=== PATIENT | male | born 1975 | race Caucasian/White ===

== ENCOUNTER 2021-07-03 22:27 | Emergency (ER) | payer OTHER, SELFPAY ==
[2021-07-03 22:30] VITALS: BP 161/92; PULSE 108; RESP 18; TEMP 36.6; O2SAT 100
--- NOTE | 2021-07-03 22:46 | ED.ALLEREA ---
HPI - Allergic Reaction General Chief complaint: Allergic Reaction Stated complaint: Allergic reaction to groin/lower abd Time Seen by Provider: 07/03/21 22:39 Source: patient Mode of arrival: ambulatory Limitations: no limitations History of Present Illness HPI narrative: Patient is a 46-year-old male complaining of a itchy rash all over his groin area that started today. Patient states that he started taking penicillin and hydrocodone yesterday after he had 7 teeth pulled . Patient denies any lip, tongue or throat swelling. Patient denies any extremity swelling. Patient denies any shortness of breath. Related Data Allergies Allergy/AdvReac Type Severity Reaction Status Date / Time Penicillins Allergy Unknown Rash Verified 11/27/17 22:58 Review of Systems Review of Systems: All systems reviewed & are unremarkable except as noted in HPI and below Constitutional: Constitutional: Denies body ache(s), Denies chills, Denies excessive sweating, Denies fatigue, Denies fever(s), Denies headache(s), Denies lethargy, Denies malaise, Denies weakness and Denies weight loss Eyes: Eyes: Denies blurry vision, Denies change in vision and Denies loss of vision ENT: Denies dizziness, Denies ear discharge, Denies headache(s), Denies lip swelling, Denies epistaxis, Denies nasal congestion, Denies neck pain, Denies throat swelling and Denies tongue swelling Cardiovascular: Cardiovascular: Denies chest pain, Denies chest pain at rest, Denies chest pain with activity, Denies diaphoresis, Denies rapid heart rate, Denies edema, Denies irregular heart rhythm, Denies lightheadedness, Denies palpitations, Denies dyspnea and Denies dyspnea on exertion Respiratory: Respiratory: Denies chest congestion, Denies cough, Denies hemoptysis, Denies dyspnea and Denies dyspnea on exertion Gastrointestinal: Gastrointestinal: Denies abdominal pain, Denies melena, Denies hematochezia, Denies diarrhea, Denies nausea, Denies vomiting and Denies hematemesis Musculoskeletal: Musculoskeletal: Denies abnormal gait, Denies deformity, Denies joint swelling, Denies limited range of motion, Denies neck pain and Denies numbness Neurologic: Denies Abnormal speech present, Denies abnormal gait, Denies confusion, Denies dizziness, Denies headache(s), Denies focal weakness, Denies loss of vision, Denies numbness, Denies Other visual disturbances, Denies Sensory deficit (Neuro) and Denies weakness Psychiatric: Psychiatric: Denies confusion, Denies depression, Denies auditory hallucinations, Denies homicidal ideation and Denies suicidal ideation Endocrine: Endocrine: Denies cold intolerance, Denies excessive sweating, Denies fatigue, Denies heat intolerance and Denies palpitations Hematologic/Lymphatic: Hematologic/Lymphatic: Denies easy bleeding and Denies easy bruising Allergic/Immunologic: Allergic/Immunologic: Denies lip swelling, Denies throat swelling and Denies tongue swelling PMF Social History Social History Smoking status: Smoker, status unknown Alcohol intake: never Comments Past medical history: None Family history: Hypertension Social history: Non-smoker no EtOH or drug use Exam Const: General: cooperative, healthy appearing, comfortable, no acute distress, well developed, alert and awake; No confusion Orientation/consciousness: oriented to person, oriented to place, oriented to time, patient oriented x3 and No confusion Limitations: no limitations HENMT: Head: normal to inspection, normocephalic and atraumatic Ears: hearing grossly normal bilaterally, TM normal on the right and TM normal on the left General nose exam: Normal external nose present, Normal nares present and No nasal discharge present Face and sinus: normal facial exam Mouth: Yes Normal oral and palatal mucosa present, Yes lip normal, Yes tongue normal and Yes oropharynx normal Throat: posterior oropharynx normal, tonsils normal and uvula midline Eyes: General: appearance normal, both eyes and
[2021-07-03 23:09] VITALS: BP 170/93; PULSE 67; RESP 18; O2SAT 98
[2021-07-03] MEDS: FAMOTIDINE 20 MG TABLET 40 MG PO (23:11)
[2021-07-03] MEDS: diphenhydrAMINE HCl CAP 25 MG CAPSULE PO (23:11)
[2021-07-03] MEDS: methylPREDNISolone SOD SUCC 125 MG VIAL IM (23:12)
== END 2021-07-03 23:19 | disposition home or self-care (01) ==
LOC: ANHED 23:01
PROVIDERS: Emergency Provider Emergency Medicine
DX: T78.40XA Allergy, unspecified, initial encounter (principal)
CPT/HCPCS: 96372; 99283; A9270; J2930

== ENCOUNTER 2021-07-28 13:20 | Emergency (ER) | payer OTHER, SELFPAY ==
--- NOTE | ~2021-07-28 | XR_ITS ---
EXAMINATION: XR chest 1V portable DATE: 07/28/2021 15:04 INDICATION: Cough. Chest tightness. TECHNIQUE: A single frontal view of the chest was obtained. COMPARISON: Chest 2 views 11/27/2017 FINDINGS: The chest demonstrates clear lungs without pneumonia, pleural effusion, or pneumothorax. Th e heart size is normal. IMPRESSION: 1. No acute cardiopulmonary disease. Reviewed, dictated and finalized at location A. [facility]MER
[2021-07-28 13:57] VITALS: BP 159/105; PULSE 88; RESP 18; TEMP 36.6; O2SAT 100
[2021-07-28 14:18] VITALS: RESP 18
[2021-07-28 14:19] VITALS: BP 148/98; PULSE 71; RESP 18; O2SAT 97
--- NOTE | 2021-07-28 15:39 | ED.GENADULT ---
HPI - General Adult General Chief complaint: Upper Respiratory Infection Stated complaint: Sinus Infection Time Seen by Provider: 07/28/21 14:17 History of Present Illness HPI narrative: Patient is a 46-year-old male who presents ER with cold symptoms. Reports over the last days developed sinus congestion with postnasal drip and cough. Associate with mild throbbing headache. Denies fevers or chills or sweats. No known sick contacts. Unvaccinated against Covid. No loss of taste or smell. Reports frequent cough. Has tried no medications at home. Patient does continue to smoke. Related Data Allergies Allergy/AdvReac Type Severity Reaction Status Date / Time Penicillins Allergy Unknown Rash Verified 07/03/21 23:10 hydrocodone Allergy Rash Verified 07/03/21 23:10 Review of Systems Review of Systems: All systems reviewed & are unremarkable except as noted in HPI and below Constitutional: Constitutional: Denies chills, Reports fatigue and Denies fever(s) ENT: Reports nasal congestion and Reports sore throat Comments: No ear pressure Cardiovascular: Cardiovascular: Denies chest pain, Denies rapid heart rate and Denies radiating jaw, neck or arm pain Respiratory: Respiratory: Reports cough, Denies dyspnea and Denies wheezing Gastrointestinal: Gastrointestinal: Denies nausea and Denies vomiting PMFSH Past Medical History Medical History (Updated 07/28/21 @ 15:45 by Michele Rivero MD) Anxiety Depression Epilepsy Hypertension Social History Social History (Updated 07/28/21 @ 15:41 by Michele Rivero MD) Smoking status: Current every day smoker Alcohol intake: never Substance use type: marijuana Exam Narrative: GENERAL: Well-appearing, well-nourished, and in no acute distress. HEAD: Normocephalic, atraumatic. EYES: PERRL and EOMI. ENT: Mucous membranes moist. CHEST: Occasional cough with rales at will clear. No respiratory distress. HEART: Regular rate and rhythm. Normal peripheral pulses. EXTREMITIES: Normal range of motion. No edema. NEURO: Alert and oriented x3. PSYCH: Normal mood and affect. Course Course Emergency Course: Covid pending. Discharge home with albuterol as well as Flonase and Mucinex D. Follow-up with PCP Vital Signs Vital signs: Vital Signs Temperature 97.9 F 07/28/21 13:57 Pulse Rate 88 07/28/21 13:57 Respiratory Rate 18 07/28/21 13:57 Blood Pressure 159/105 H 07/28/21 13:57 Pulse Oximetry 100 07/28/21 13:57 Temperature 97.9 F 07/28/21 13:57 Pulse Rate 71 07/28/21 14:19 Respiratory Rate 18 07/28/21 14:19 Blood Pressure 148/98 H 07/28/21 14:19 Pulse Oximetry 97 07/28/21 14:19 Medical Decision Making Vital Signs Vital Signs: Vital Signs Temperature 97.9 F 07/28/21 13:57 Pulse Rate 88 07/28/21 13:57 Respiratory Rate 18 07/28/21 13:57 Blood Pressure 159/105 H 07/28/21 13:57 Pulse Oximetry 100 07/28/21 13:57 Temperature 97.9 F 07/28/21 13:57 Pulse Rate 71 07/28/21 14:19 Respiratory Rate 18 07/28/21 14:19 Blood Pressure 148/98 H 07/28/21 14:19 Pulse Oximetry 97 07/28/21 14:19 Lab Data Labs: Lab Results 07/28/21 Range/Units 15:24 SARS-CoV-2 RNA (RT-PCR) Pending Imaging Data Radiologist's impression: ITS Impressions Chest X-Ray 07/28/21 15:06 IMPRESSION: 1. No acute cardiopulmonary disease. Discharge Plan Discharge Clinical Impression: Upper respiratory infection, Person under investigation for COVID-19 Patient Disposition: Home, Self-Care Condition: Stable Instructions: Upper Respiratory Infection (ED), COVID-19 (Coronavirus Disease 2019) (ED) Additional Instructions: You were tested for Covid. You should have the results in the next 24 hours. Return the ER if you have worsening shortness of breath, you lose consciousness, you have chest pain with exertion, you have additional concerns. Prescriptions: New albuterol sulfate 90 mcg/act
[2021-07-28 16:10] VITALS: BP 132/78; PULSE 78; RESP 18; O2SAT 100
[2021-07-29 17:57] LABS: SARS-CoV-2 RNA PCR Negative
== END 2021-07-28 16:10 | disposition home or self-care (01) ==
PROVIDERS: Emergency Provider Emergency Medicine
DX: J22 Unspecified acute lower respiratory infection (principal); Z20.822 Contact with and (suspected) exposure to COVID-19; F41.9 Anxiety disorder, unspecified; F32.9 Major depressive disorder, single episode, unspecified; G40.909 Epilepsy, unspecified, not intractable, without status epilepticus; I10 Essential (primary) hypertension; F17.210 Nicotine dependence, cigarettes, uncomplicated
CPT/HCPCS: 71045; 99283; C9803; U0003; U0005

== ENCOUNTER 2022-02-16 14:01 | Emergency (ER) | payer OTHER, SELFPAY ==
[2022-02-16 14:03] VITALS: BP 175/102; PULSE 78; RESP 18; TEMP 36.5; O2SAT 99
--- NOTE | 2022-02-16 14:40 | ED.LOWEXIN ---
HPI - Extremity Injury (Lower) General Chief Complaint: Extremity Injury, Lower Stated Complaint: knee and hip pain Time Seen by Provider: 02/16/22 14:14 History of Present Illness HPI Narrative: This is a 46-year-old male with no past medical history, presenting emergency department complaining of left knee hip and back pain. He describes the pain as sharp, 5 out of 10, originating in the left lateral aspect of the knee radiating to the left hip and across the left back. 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 Pain is intermittent and is not associated with saddle anesthesia or loss of bowel or bladder control. He has not had a pain like this before. Related Data Allergies Allergy/AdvReac Type Severity Reaction Status Date / Time Penicillins Allergy Unknown Rash Verified 02/16/22 14:49 hydrocodone Allergy Rash Verified 02/16/22 14:49 Review of Systems Review of Systems: CONSTITUTIONAL: Denies fever, chills, or sweats. EYES: Denies visual changes, redness, or discharge. ENT: Denies rhinorrhea, congestion, sore throat, or otalgia. CARDIOVASCULAR: Denies chest pain, palpitations, or edema. RESPIRATORY: Denies cough or dyspnea. GASTROINTESTINAL: Denies abdominal pain, nausea, vomiting, or diarrhea. GENITOURINARY: Denies dysuria or hematuria. SKIN: Denies rash or itching. MUSCULOSKELETAL: + back pain, left knee and hip pain, Denies myalgia. NEUROLOGIC: Denies headache, numbness, dizziness, or weakness. PSYCHIATRIC: Denies anxiety or depression. PMFSH Past Medical History Medical History (Updated 02/17/22 @ 00:00 by Christal Daemasael) Anxiety Depression Epilepsy Hypertension Social History Social History (Updated 07/28/21 @ 15:41 by Michele Rivero MD) Smoking status: Current every day smoker Alcohol intake: never Substance use type: marijuana Exam Narrative: GENERAL: Well-appearing, well-nourished, and in no acute distress. HEAD: Normocephalic, atraumatic. EYES: PERRLA and EOMI. CHEST: Clear to auscultation. No respiratory distress. No wheezes rales or rhonchi HEART: Regular rate and rhythm. No murmur heard. Normal peripheral pulses. ABDOMEN: Soft, nontender, nondistended, normal active bowel sounds. BACK: No CVA tenderness to palpation over the spine, no paraspinal tenderness, no noted erythema or induration EXTREMITIES: Normal-appearing knees bilaterally, no noted joint effusion, erythema, or induration. Normal range of motion. No edema. SKIN: Warm, dry, no rash. NEURO: No focal deficits. Alert and oriented x3. PSYCH: Normal mood and affect. Course Course Emergency Course: Exam consistent with musculoskeletal strain and not concerning for neural deficit. Will discharge with pain management, home physical therapy and primary care follow up. Discussed return and emergency precautions including signs/symptoms of cauda equina. The patient voiced understanding and is comfortable with the plan. All questions answered to his satisfaction. Vital Signs Vital signs: Vital Signs Temperature 97.7 F 02/16/22 14:03 Pulse Rate 78 02/16/22 14:03 Respiratory Rate 18 02/16/22 14:03 Blood Pressure 175/102 H 02/16/22 14:03 Pulse Oximetry 99 02/16/22 14:03 Oxygen Delivery Room Air 02/16/22 14:03 Temperature 97.7 F 02/16/22 14:03 Pulse Rate 74 02/16/22 16:19 Respiratory Rate 18 02/16/22 16:19 Blood Pressure 148/95 H 02/16/22 16:19 Pulse Oximetry 99 02/16/22 16:19 Oxygen Delivery Room Air 02/16/22 14:03 MDM - Extremity Injury (Lower) MDM Narrative Medical decision making narrative: Plan: pain control Differential Diagnosis Differential diagnosis: Likely other (IT band syndrome, musculoskeletal strain, other) Discharge Plan Discharge Clinical Impression: Acute pain of left knee, Low back pain Patient Disposition: Home, Self-Care Condition: Stable Instructions: Antibiotic Form, Lower Back Exercises (ED) Additional
--- NOTE | 2022-02-16 15:33 | PC.NURSE ---
Pharmacy was contacted by this RN for lidocaine patch. Per pharmacy - location of patch placement has to be included in order.
[2022-02-16] MEDS: LIDOCAINE 5% PATCH 1 PATCH TRANSDERM (15:48)
[2022-02-16] MEDS: KETOROLAC 30 MG/ML VIAL (*BKC) IM (15:49)
[2022-02-16 16:19] VITALS: BP 148/95; PULSE 74; RESP 18; O2SAT 99
== END 2022-02-16 16:21 | disposition home or self-care (01) ==
PROVIDERS: Emergency Provider Preventive Medicine Aerospace Medicine
DX: M25.562 Pain in left knee (principal); M54.50 Low back pain, unspecified; F17.200 Nicotine dependence, unspecified, uncomplicated
CPT/HCPCS: 96372; 99283; A9270; J1885

== ENCOUNTER 2023-12-22 16:40 | Emergency (ER) | payer OTHER, SELFPAY ==
[2023-12-22 16:49] VITALS: BP 117/77; PULSE 74; RESP 20; TEMP 36.4; O2SAT 100
--- NOTE | 2023-12-22 17:27 | ED.SKABFB ---
HPI - Skin/Abscess/Foreign Bdy General Chief complaint: Skin/Abscess/Foreign Body Stated complaint: Rash Time Seen by Provider: 12/22/23 17:22 Source: patient and RN notes reviewed Mode of arrival: ambulatory Limitations: no limitations History of Present Illness HPI narrative: Patient presents today with a one-week history of pruritic rash to the bilateral legs and bilateral arms. He has been working in his backyard in high [employer] recently. He has tried some Children's Benadryl that he had at home without much relief. Related Data Home Medications Medication Instructions Recorded Confirmed amlodipine 10 mg tablet mg 12/22/23 aripiprazole 15 mg tablet mg 12/22/23 benztropine 1 mg tablet mg 12/22/23 escitalopram oxalate 20 mg tablet mg 12/22/23 gabapentin 300 mg capsule mg 12/22/23 ibuprofen 800 mg tablet mg 12/22/23 losartan 100 mg tablet mg 12/22/23 metformin 500 mg tablet,extended mg PO 12/22/23 release 24 hr montelukast 10 mg tablet mg 12/22/23 propranolol 20 mg tablet mg 12/22/23 rosuvastatin 10 mg tablet mg 12/22/23 Allergies Allergy/AdvReac Type Severity Reaction Status Date / Time Penicillins Allergy Unknown Rash Verified 12/22/23 16:53 hydrocodone Allergy Rash Verified 12/22/23 16:53 Review of Systems Review of Systems: CONSTITUTIONAL: Denies body aches, fever, chills, or sweats. EYES: Denies visual changes, redness, or discharge. ENT: Denies rhinorrhea, congestion, sore throat, or otalgia. CARDIOVASCULAR: Denies chest pain, palpitations, or edema. RESPIRATORY: Denies cough or dyspnea. GASTROINTESTINAL: Denies abdominal pain, nausea, vomiting, or diarrhea. GENITOURINARY: Denies dysuria or hematuria. SKIN: + pruritic rash MUSCULOSKELETAL: Denies back pain, joint pain, or myalgia. NEUROLOGIC: Denies headache, numbness, tingling, or weakness. PSYCH: Denies depression or anxiety. [facility] Past Medical History Medical History Anxiety Depression Epilepsy Hypertension Social History Social History Smoking status: Current every day smoker Alcohol intake: never Substance use type: marijuana Comments At time of signature, I have reviewed and agree with nursing past medical, surgical, social and family history unless otherwise noted. Please see nursing chart for further information. There is no relevant family history pertinent to the presenting complaint Exam Narrative: GENERAL: Well-appearing, well-nourished, and in no acute distress. HEAD: Normocephalic, atraumatic. EYES: EOMI. No redness or drainage. Conjunctivae normal. ENT: Mucous membranes pink and moist. NECK: Normal AROM. CHEST: No respiratory distress. EXTREMITIES: Normal range of motion. No edema. SKIN: Warm, dry. Capillary refill normal. Normal skin turgor. Multiple scattered scabbed lesions to the bilateral lower legs, bilateral antecubital fossa. No signs of infection. No active drainage. No induration or edema. NEURO: No focal deficits. Alert and oriented x3. Gait steady. PSYCH: Normal affect. No signs of depression or anxiety. Course Course Level of Care: Express Care Visit Vital Signs Vital signs: Vital Signs Temperature 97.5 F L 12/22/23 16:49 Pulse Rate 74 12/22/23 16:49 Respiratory Rate 20 12/22/23 16:49 Blood Pressure 117/77 12/22/23 16:49 Pulse Oximetry 100 12/22/23 16:49 Oxygen Delivery Room Air 12/22/23 16:49 Temperature 97.5 F L 12/22/23 16:49 Pulse Rate 74 12/22/23 16:49 Respiratory Rate 20 12/22/23 16:49 Blood Pressure 117/77 12/22/23 16:49 Pulse Oximetry 100 12/22/23 16:49 Oxygen Delivery Room Air 12/22/23 16:49 Reviewed MDM - Skin/Abscess/Foreign Bdy MDM Narrative Medical decision making narrative: Patient's symptoms are likely due to contact dermatitis. Prescription for prednisone sent to pharmacy. Anti
== END 2023-12-22 17:35 | disposition home or self-care (01) ==
PROVIDERS: Emergency Provider Nurse Practitioner; PCP Internal Medicine
DX: L25.9 Unspecified contact dermatitis, unspecified cause (principal); F17.200 Nicotine dependence, unspecified, uncomplicated; F12.90 Cannabis use, unspecified, uncomplicated; I10 Essential (primary) hypertension
CPT/HCPCS: 99213; G0463

== ENCOUNTER 2024-01-06 17:13 | Emergency (ER) | payer OTHER, SELFPAY ==
[2024-01-06] VITALS (19 sets, daily range): BP systolic 117–137; BP diastolic 68–106; PULSE 68–83; RESP 16–19; TEMP 36.8; O2SAT 97–100
--- NOTE | ~2024-01-06 | CT_ITS ---
EXAMINATION: CT abdomen pelvis w con DATE: 01/06/2024 22:23 INDICATION: Abdominal pain. Constipation. TECHNIQUE: Computed tomography (CT) of the abdomen and pelvis was performed with 100 mL Omnipaque 350 intravenous contrast. Automated exposure control and iterative reconstruction technique were employe d. The dose-length product was 987.03 mGy-cm. COMPARISON: None. FINDINGS: The visualized portions of the lung bases demonstrate mild atelectasis. No pleural effusion . The heart size is normal. No pericardial effusion. There is diffuse hepatic steatosis. The gallblad devante, spleen, pancreas, and adrenal glands, are normal. There are cysts in the kidneys measuring up to 2.1 cm on the left. There are bilateral inguinal hernias containing fat. There are no dilated loops of bowel. The appendix is normal. There is calcified atherosclerosis of the aorta and many of the oth er arteries. There are no pathologically enlarged lymph nodes. There is no free intraperitoneal fluid . There is mild chronic anterior wedging of multiple vertebral bodies. There is mild thoracic and lum bar spondylosis. IMPRESSION: 1. Diffuse hepatic steatosis. 2. Bilateral inguinal hernias containing fat. Reviewed, dictated and finalized at location E.
--- NOTE | 2024-01-06 18:36 | ED.GENADULT ---
HPI - General Adult General Chief complaint: Abdominal Pain Stated complaint: constipation Time Seen by Provider: 01/06/24 18:36 Focused HPI: Jared Mreaz is a 48 y/o male who presents with reports of having constipation to diarrhea for the past 3-5 days. He also had some nausea vomiting about 5 days ago. Denies pain, he states he had a BM today and had diarrhea. He states he has been feeling hot off and on the past week. GENERAL: well-nourished, and in no acute distress. HEAD: Normocephalic, atraumatic. CHEST: Clear to auscultation. ?No respiratory distress. HEART: Regular rate and rhythm.? NEURO: ?Alert and oriented x3. Patient screened in triage and initial orders placed.? ?Additional care and disposition to be based upon?diagnostic testing and treatment. Related Data Home Medications Medication Instructions Recorded Confirmed amlodipine 10 mg tablet mg 12/22/23 aripiprazole 15 mg tablet mg 12/22/23 benztropine 1 mg tablet mg 12/22/23 escitalopram oxalate 20 mg tablet mg 12/22/23 gabapentin 300 mg capsule mg 12/22/23 ibuprofen 800 mg tablet mg 12/22/23 losartan 100 mg tablet mg 12/22/23 metformin 500 mg tablet,extended mg PO 12/22/23 release 24 hr montelukast 10 mg tablet mg 12/22/23 propranolol 20 mg tablet mg 12/22/23 rosuvastatin 10 mg tablet mg 12/22/23 Allergies Allergy/AdvReac Type Severity Reaction Status Date / Time Penicillins Allergy Unknown Rash Verified 12/22/23 16:53 hydrocodone Allergy Rash Verified 12/22/23 16:53 PMFSH Past Medical History Medical History Anxiety Depression Epilepsy Hypertension Social History Social History Smoking status: Current every day smoker Alcohol intake: never Substance use type: marijuana Course Vital Signs Vital signs: Vital Signs Temperature 36.8 C 01/06/24 17:33 Pulse Rate 83 01/06/24 17:33 Respiratory Rate 16 01/06/24 17:33 Blood Pressure 124/68 01/06/24 17:33 Pulse Oximetry 99 01/06/24 17:33 Oxygen Delivery Room Air 01/06/24 17:33 Temperature 36.8 C 01/06/24 17:33 Pulse Rate 68 01/06/24 23:51 Respiratory Rate 16 01/06/24 23:51 Blood Pressure 117/69 01/06/24 23:31 Pulse Oximetry 98 01/06/24 23:51 Oxygen Delivery Room Air 01/06/24 17:33 Medical Decision Making Vital Signs Vital Signs: Vital Signs Temperature 36.8 C 01/06/24 17:33 Pulse Rate 83 01/06/24 17:33 Respiratory Rate 16 01/06/24 17:33 Blood Pressure 124/68 01/06/24 17:33 Pulse Oximetry 99 01/06/24 17:33 Oxygen Delivery Room Air 01/06/24 17:33 Temperature 36.8 C 01/06/24 17:33 Pulse Rate 68 01/06/24 23:51 Respiratory Rate 16 01/06/24 23:51 Blood Pressure 117/69 01/06/24 23:31 Pulse Oximetry 98 01/06/24 23:51 Oxygen Delivery Room Air 01/06/24 17:33 Lab Data 01/06/24 21:17 01/06/24 21:17 Labs: Lab Results 01/06/24 01/06/24 01/06/24 Range/Units 21:17 21:35 23:24 WBC 11.9 H (4.5-10.0) K/mm3 RBC 4.69 (4.6-6.20) M/mm3 Hgb 14.6 (14.0-18.0) g/dL Hct 41.4 L (42.0-52.0) % MCV 88.3 (80-100) fl MCH 31.1 (26-34) pg MCHC 35.3 (32-36) g/dl RDW 12.2 (11.5-14.5) % Plt Count 229 (150-375) k/mm3 MPV 9.3 (7.4-10.4) fl Immature Gran % (Auto) 0.3 (0-0.5) % Neut % (Auto) 55.9 (45.5-73.1) % Lymph % (Auto) 32.7 (18.3-44.2) % Granite % (Auto) 8.4 (2.6-8.5) % Eos % (Auto) 2.2 (0-4.4) % Baso % (Auto) 0.5 (0.2-1.2) % Lymph # (Auto) 3.89 H (0.9-3.2) K/mm3 Granite # (Auto) 1.0 H (0.1-0.6) K/mm3 Eos # (Auto) 0.3 (0-0.3) K/mm3 Baso # (Auto) 0.1 (0.0-0.1) K/mm3 Abs Immat Gran (auto) 0.03 (0.00-0.031) K/mm3 Absolute Neuts (auto) 6.7 (1.3-6.7) K/mm3 Absolute Nucleated RBC 0.000 (0.0-0.012) K/mm3 Nucleated RBC % 0.0 (0.0-0.2) %
[2024-01-06 21:21] LABS: Basophils Absolute Auto 0.1 K/mm3 (0.0-0.1); Basophils Percent Auto 0.5 % (0.2-1.2); Eosinophils Absolute Auto 0.3 K/mm3 (0-0.3); Eosinophils Percent Auto 2.2 % (0-4.4); Hematocrit 41.4 % (42.0-52.0); Hemoglobin 14.6 g/dL (14.0-18.0); Immature Granulocyte Absolute 0.03 K/mm3 (0.00-0.031); Immature Granulocyte Percent A 0.3 % (0-0.5); Lymphocytes Absolute Auto 3.89 K/mm3 (0.9-3.2); Lymphocytes Percent Auto 32.7 % (18.3-44.2); Mean Corpuscular HGB Conc 35.3 g/dl (32-36); Mean Corpuscular Hemoglobin 31.1 pg (26-34); Mean Corpuscular Volume 88.3 fl (80-100); Mean Platelet Volume 9.3 fl (7.4-10.4); Monocytes Percent Auto 8.4 % (2.6-8.5); Neutrophils Absolute Auto 6.7 K/mm3 (1.3-6.7); Neutrophils Percent Auto 55.9 % (45.5-73.1); Platelet Count Result 229 k/mm3 (150-375); Red Blood Count 4.69 M/mm3 (4.6-6.20); Red Cell Distribution Width 12.2 % (11.5-14.5); White Blood Count 11.9 K/mm3 (4.5-10.0)
[2024-01-06 21:32] LABS: Alanine Aminotransferase 48 U/L (6-50); Alkaline Phosphatase 76 U/L (38-126); Anion Gap 13 mmol/L (4-12); Aspartate Amino Transferase 29 U/L (17-59); Bilirubin,Total 0.8 mg/dL (0.2-1.3); Blood Urea Nitrogen 27 mg/dL (9-20); Carbon Dioxide 26 mmol/L (22-30); Chloride 93 mmol/L (98-107); Estimated CRCL calculation 72 ml/min; Estimated Glomerular Filt Rate > 60; Glucose 498 mg/dL (65-110); Lipase 240 U/L (23-300); Sodium 132 mmol/L (137-145)
[2024-01-06 21:42] LABS: Appearance Urine Clear (Clear); Bilirubin Urine Negative (Negative); Blood Urine Negative (Negative); Color Urine Yellow (Yellow); Glucose Urine UA 3+ mg/dL (Negative); Ketones Urine Negative (Negative); Leukocyte Esterase Ur Negative LEU/UL (Negative); Nitrate Urine Negative (Negative); Protein Urine Negative (Negative); Specific Grav Ur 1.044 (1.001-1.035); Urobilinogen Urine 0.2 mg/dL (<2.0); pH Urine 5.5 (5.0-9.0)
[2024-01-06 21:43] LABS: Add Urine Microscopic? NO
[2024-01-06] MEDS: SODIUM CHLORIDE 0.9% IV 1,000 ML 999 ML IV CONT (22:25)
[2024-01-06] MEDS: INSULIN HUMAN REGULAR (*BKC) 100 UNITS/ML IV PUSH (22:25)
[2024-01-06 23:27] LABS: Glucose Point of Care 391 mg/dl (65-105)
--- NOTE | 2024-01-06 23:27 | PC.NURSE ---
erp updated that patient continues to drink code red mountain dew 24 oz bottle and eat an entire container of beef jerky. Pt bs did decrease by 100 but pt is non compliant with npo request by this rn, erp, and mohamud groves as well.
--- NOTE | 2024-01-06 23:49 | PC.NURSE ---
upon reviewing discharge instructions pt phyllis verbalized that the patient will not follow a diabetic diet. this rn verbalized importance of diabetic diet and educated about high blood sugars and risk factors associated with such. Pt did not want to receive this education by this rn.
== END 2024-01-06 23:52 | disposition home or self-care (01) ==
PROVIDERS: Nurse Practitioner Family; Emergency Provider Emergency Medicine; PCP Internal Medicine
DX: R73.9 Hyperglycemia, unspecified (principal); R10.9 Unspecified abdominal pain; G40.909 Epilepsy, unspecified, not intractable, without status epilepticus; I10 Essential (primary) hypertension; F41.9 Anxiety disorder, unspecified; F32.A Depression, unspecified; F17.200 Nicotine dependence, unspecified, uncomplicated; Z79.84 Long term (current) use of oral hypoglycemic drugs; Z79.899 Other long term (current) drug therapy
CPT/HCPCS: 36415; 74177; 80053; 81003; 82948; 83690; 85025; 96361; 96374; 99284; J1815; J7030; Q9967

== ENCOUNTER 2024-09-01 11:15 | Emergency (ER) | payer OTHER, SELFPAY ==
--- NOTE | ~2024-09-01 | XR_ITS ---
EXAMINATION: XR chest 2V DATE: 09/01/2024 12:16 INDICATION: Chest pain. TECHNIQUE: Frontal and lateral views of the chest were obtained. COMPARISON: Chest single view 07/28/2021, CT abdomen and pelvis 01/06/2024 FINDINGS: There is no pneumonia, pleural effusion, or pneumothorax. The heart size is normal. There i s mild chronic anterior wedging of multiple vertebral bodies. IMPRESSION: 1. No acute cardiopulmonary disease. Reviewed, dictated and finalized at location A. RONMENTAL OFFICER
--- OUTSIDE RECORDS SUMMARY | 2024-09-01 11:18 | XMS_ITS | Clinical Summary ---
Author Organization [facility] Address [address] [place] [address] Care Team Providers Care Map Editor Name Role Phone Rony Mckenzie MD Primary Care Provider [phone] Allergies No known active allergies Medications divalproex ER (DEPAKOTE ER) 500 mg 24 hr tablet 11/25/2016 Active brivaracetam (BRIVIACT) 50 mg tablet Take 50 mg by mouth 2 (two) times a day. Take one tablet of 50 mg tablet by mouth twice a day 60 tablet 3 01/21/2017 Active FLUoxetine 10 mg capsule Take 1 tablet/capsu le (10 mg total) by mouth daily 04/02/2024 Active FLUoxetine (PROzac) 20 mg capsule Take 1 capsule (20 mg total) by mouth daily 04/02/2024 Active ARIPiprazole (ABILIFY) 15 mg tablet Take 1 tablet (15 mg total) by mouth daily 03/17/2024 Active propranoloL (INDERAL) 20 mg tablet Take 1 tablet (20 mg total) by mouth 03/17/2024 Active amLODIPine (NORVASC) 10 mg tablet Take 1 tablet (10 mg total) by mouth daily 03/19/2024 Active montelukast (SINGULAIR) 10 mg tablet Take 1 tablet (10 mg total) by mouth daily Active ibuprofen (ADVIL,MOTRIN) 800 mg tablet Take 1 tablet (800 mg total) by mouth daily as needed 03/19/2024 Active losartan (COZAAR) 100 mg tablet Take 1 tablet (100 mg total) by mouth daily Active rosuvastatin (CRESTOR) 10 mg tablet Take 1 tablet (10 mg total) by mouth daily 03/19/2024 Active benztropine (COGENTIN) 1 mg tablet Take 1 tablet (1 mg total) by mouth nightly 2024 Active Active Problems Problem Noted Date Diagnosed Date Epilepsy undetermined as to focal or generalized 01/21/2017 Medical History Medical History Date Comments Seizures (HCC) Depression Family History Medical History Relation Name Comments Diabetes type II Mother Migraines Mother Seizures Mother Relation Name Status Comments Mother Social History Tobacco Use Types Packs/Day Years Used Date Smoking Tobacco: Every Day Smokeless Tobacco: Never Tobacco Cessation:Ready to Q uit: Not Asked; Counseling Given: Not Answered Alcohol Use Standard Drinks/Week Comments No 0 (1 standard drink = 0.6 oz pur e alcohol) Personal Safety Answer Date Recorded Getting School Help Needed Not on file 09/09 Sex and Gender Information Value Date Recorded Sex Assigned at Not on file 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 Gender Identity Not on file Sexual Orientation Not on file Obstetrics History Last Filed Vital Signs Vital Sign Reading Time Taken Comments Blood Pressure 102/64 04/18/2024 10:32 AM CDT Pulse 72 04/18/2024 10:32 AM CDT Temperature 36.2 C (97.1 F) 04/18/2024 10:32 AM CDT Respiratory Rate - - Oxygen Saturation 95% 04/18/2024 10:32 AM CDT Inhaled Oxygen Concentration - - Weight 79.8 kg (176 lb) 04/18/2024 10:32 AM CDT Height 170.2 cm (5' 7 ) 04/18/2024 10:32 AM CDT Body Mass Index 27.57 04/18/2024 10:32 AM CDT Plan of Treatment Health Maintenance Due Date Last Done Comments Colon Cancer Screening-Colonoscopy 1976 Depression Screening 1976 Hepatitis C Screening 1976 Hepatitis B Screening 1994 Regular Well Visit/Exam 18-64 1994 Pneumococcal vaccine <65 (2 of 2 - PCV) 12/24/2020 12/25/2019 DTaP/Tdap/Td Vaccine (3 - Td or Tdap) 03/19/2029 03/19/2019, 03/23/2016 Influenza Vaccine Completed 03/08/2024, , 03/20/2020, Additional history exists Insurance [facility]NA [facility] A[facility] Care Teams Map Editor Relationship Specialty Start Date End Date Rony Mckenzie MD [address] [place] [address] PCP - General Internal Medicine 12/30/16
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
--- OUTSIDE RECORDS SUMMARY | 2024-09-01 11:18 | XMS_ITS | Referral Summary ---
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
[2024-09-01 11:23] VITALS: BP 117/96; PULSE 77; RESP 18; TEMP 36.3; O2SAT 99
--- NOTE | 2024-09-01 12:03 | ECG_ITS ---
Test Date: 2024-09-01 12:24:20 Measurements Intervals [place] Rate: 67 P: 18 [place]: 160 QRS: -55 QRSD: 101 T: 3 QT: 377 QTc: 400 Interpretive Statements SINUS RHYTHM MARKED LEFT AXIS DEVIATION [QRS AXIS < -30] POOR R-WAVE PROGRESSION ABNORMAL ECG No previous ECG available for comparison Electronically Signed On 09-01-2024 16:02:44 PROBATION COUNSELOR by Tom Govea M.D.
--- NOTE | 2024-09-01 13:00 | ED.GENADULT ---
HPI - General Adult General Chief complaint: Extremity Injury, Upper Stated complaint: right axilla pain Time Seen by Provider: 09/01/24 11:54 History of Present Illness HPI narrative: 49-year-old male presenting to the emergency department for evaluation for right-sided chest wall pain that is worsened with coughing. Patient is a smoker. Patient denies any falls or injuries. Patient denies any worsening cough, patient states he does have a smoker of at baseline. Patient denies any recent illnesses. Patient states the pain it only happens when he moves or coughs. Related Data Home Medications ?Medication ?Instructions ?Recorded ?Confirmed ?Last Taken ?Type amlodipine 10 mg tablet mg 12/22/23 Unknown History aripiprazole 15 mg tablet mg 12/22/23 Unknown History benztropine 1 mg tablet mg 12/22/23 Unknown History escitalopram oxalate 20 mg tablet mg 12/22/23 Unknown History gabapentin 300 mg capsule mg 12/22/23 Unknown History ibuprofen 800 mg tablet mg 12/22/23 Unknown History losartan 100 mg tablet mg 12/22/23 Unknown History metformin 500 mg tablet,extended mg PO 12/22/23 Unknown History release 24 hr montelukast 10 mg tablet mg 12/22/23 Unknown History propranolol 20 mg tablet mg 12/22/23 Unknown History rosuvastatin 10 mg tablet mg 12/22/23 Unknown History Allergies Allergy/AdvReac Type Severity Reaction Status Date / Time Penicillins Allergy Unknown Rash Verified 09/01/24 11:33 hydrocodone Allergy Rash Verified 09/01/24 11:33 Review of Systems Review of Systems: All systems reviewed & are unremarkable except as noted in HPI and below PMFSH Past Medical History Medical History Anxiety Depression Epilepsy Hypertension Social History Social History Smoking status: Current every day smoker Alcohol intake: never Substance use type: marijuana Exam Narrative: APPEARANCE: Well appearing, no pain, no distress, well-nourished. HEAD: normocephalic, atraumatic. EYES: PERRLA/EOMI, conjunctivae clear. NOSE: Normal no drainage EARS:TMS clear with good light reflex. THROAT: Pharynx clear, no exudate. NECK: Supple. No adenopathy, no masses. RESPIRATORY: Airway patent, respirations nonlabored. Clear to auscultation bilaterally, no rales, rhonchi, wheezing. CARDIOVASCULAR: Regular rate and rhythm without murmurs rubs or gallops. ABDOMINAL: Soft, nontender, nondistended, normal bowel sounds MUSCULOSKELETAL: Moves all extremities. Strength/ROM intact, No edema, No calf tenderness. NEURO: Alert. Cranial nerves II through XII intact. Grossly intact SKIN: Warm, dry. Normal Color Course Vital Signs Vital signs: Vital Signs Temperature 97.4 F L 09/01/24 11:23 Pulse Rate 77 09/01/24 11:23 Respiratory Rate 18 09/01/24 11:23 Blood Pressure 117/96 H 09/01/24 11:23 Pulse Oximetry 99 09/01/24 11:23 Oxygen Delivery Room Air 09/01/24 11:23 Temperature 97.4 F L 09/01/24 11:23 Pulse Rate 70 09/01/24 14:54 Respiratory Rate 16 09/01/24 14:54 Blood Pressure 109/72 09/01/24 14:54 Pulse Oximetry 96 09/01/24 14:54 Oxygen Delivery Room Air 09/01/24 11:23 Medical Decision Making MDM Narrative Medical decision making narrative: 49-year-old male present emergency department for evaluation for right-sided chest wall pain. X-ray shows no acute cardiopulmonary abnormality. Negative for pneumothorax, negative for pneumonia. Patient was treated with IM Toradol for suspected pleurisy. Patient's EKG showed no acute findings concerning for STEMI. Patient's pain is very pleuritic in nature. Differential Diagnosis Differential Diagnosis: COVID, RSV, influenza, pneumonia, pleurisy, ACS Vital Signs Vital Signs: Vital Signs Temperature 97.4 F L 09/01/24 11:23 Pulse Rate 77 09/01/24 11:23 Respiratory Rate 18 09/01/24 11:23 Blood Pressure 117/96 H 09/01/24 11:23 Pulse Oximetry 99 09/01/24 11:23 Oxygen Delivery Room Air 09/01/24 11:23 Temperature 97.4 F L 09/01/24 11:23 Pulse Rate 70 09/01/24 14:54 Respiratory Rate 16 09/01/24 14:54 Blood Pressure 109/72 09/01/24 14:54 Pulse Oximetry 96 09/01/24 14:54 Oxygen Delivery Room Air 09/01/24 11:23 Lab Data Lab results reviewed: Yes I reviewed the patient's lab results. Labs: Lab Results 09/01/24 Range/Units 12:11 Influenza A (RT-PCR) Negative (Negative) Influenza B (RT-PCR) Negative (Negative) RSV (RT-PCR) Negative (Negative) SARS-CoV-2 RNA (RT-PCR) Negative (Negative) Imaging Data Radiologist's impression: Impressions Chest X-Ray 09/01/24 12:21 IMPRESSION: 1. No acute cardiopulmonary disease. ECG Data EKG #1: EKG Interpretation: normal rate, sinus rhythm, non-specific ST changes, normal QRS, normal QT and NL axis Discharge Plan Discharge Clinical Impression: Chest pain, pleuritic Patient Disposition: Home, Self-Care Condition: Stable Instructions: Antibiotic Form, Pleurisy (DC) Additional Instructions: Naproxen for pleuritic chest pain. Have close follow-up with your primary care physician. If you have any worsening symptoms then please call or return to the emergency department. Patient Language: Greenlandic Prescriptions: New naproxen 500 mg tablet 500 mg PO BID PRN (Reason: pain) 7 Days Qty: 14 0RF No Action ibuprofen 800 mg tablet amlodipine 10 mg tablet benztropine 1 mg tablet gabapentin 300 mg capsule montelukast 10 mg tablet propranolol 20 mg tablet losartan 100 mg tablet metformin 500 mg tablet extended release 24 hr PO escitalopram oxalate 20 mg tablet aripiprazole 15 mg tablet rosuvastatin 10 mg tablet prednisone 20 mg tablet 40 mg PO DAILY 5 Days Qty: 10 0RF famotidine [Pepcid] 20 mg tablet 20 mg PO BID Qty: 10 0RF albuterol sulfate 90 mcg/actuation HFA aerosol inhaler 2 puff INHALATION QID PRN (Reason: shortness of breath or wheezing) Qty: 8 0RF fluticasone propionate [Allergy Relief (fluticasone)] 50 mcg/actuation spray,suspension 1 spray intranasal BID Qty: 16 0RF Rx Instructions: administer into each nostril acetaminophen 500 mg capsule 500 mg PO Q8H PRN (Reason: pain) Qty: 60 0RF Rx Instructions: Take 2 tabs by mouth every 8 hours for 3 days, then 1-2 tabs by mouth every 8 hours as needed for pain lidocaine [Lidoderm] 5 % adhesive patch,medicated 1 patch topical DAILY Qty: 30 0RF Rx Instructions: leave on most painful area for up to 12 hrs Follow-up/Referrals: Alex,Harriet Presley MD [Primary Care Provider] - Quality HEART score for chest pain patients History: slightly suspicious ECG: normal Age: > 45 and < 65 years Risk factors: 1 or 2 risk factors
[2024-09-01] MEDS: KETOROLAC 30 MG/ML VIAL (*BKC) IM (13:03)
[2024-09-01 13:07] LABS: Influenza A QL RT-PCR Negative (Negative); Influenza B QL RT-PCR Negative (Negative); RSV RNA, RT-PCR Negative (Negative); SARS-CoV-2 RNA PCR Negative (Negative)
[2024-09-01 14:54] VITALS: BP 109/72; PULSE 70; RESP 16; O2SAT 96
== END 2024-09-01 14:56 | disposition home or self-care (01) ==
PROVIDERS: Emergency Provider Emergency Medicine; PCP Family Medicine
DX: R07.81 Pleurodynia (principal); F41.8 Other specified anxiety disorders; G40.909 Epilepsy, unspecified, not intractable, without status epilepticus; I10 Essential (primary) hypertension; Z20.822 Contact with and (suspected) exposure to COVID-19
CPT/HCPCS: 71046; 87637; 93005; 96372; 99283; J1885

== ENCOUNTER 2024-11-15 23:07 | Emergency (ER) | payer OTHER, SELFPAY ==
--- NOTE | ~2024-11-15 | CT_ITS ---
Clinical Indication: Shortness of breath CT Scan of the Chest with Contrast: Technique: Contiguous sections were acquired throughout the chest after intravenous administration of 100 cc of Omnipaque 350. Dose reduction technique was used on this scan by utilizing automated expos ure control and iterative reconstruction technique. The dose-length product (DLP) was 286.47 mGy-cm. Findings: Right hilar lymphadenopathy present, measuring up to 2.3 cm in diameter. There is no filling defect i n the pulmonary arterial tree to suggest pulmonary embolus. There is no evidence of aortic dissection or aneurysm. No pericardial effusion. Small right pleural effusion present. No left pleural effusion. There is extensive consolidation in the lateral right upper lobe with areas of fluid and air within t he consolidation, compatible with presumed chronic change and developing cavitation. Left lung clear. Images through the upper abdomen reveal no abnormalities. Impression: No evidence of pulmonary embolus, aortic dissection, or aortic aneurysm. Extensive probable necrotizing pneumonia in the lateral right upper lobe. Underlying neoplasm felt le ss likely, though not completely excluded. Right hilar lymphadenopathy, presumably reactive. Small right pleural effusion. Reviewed, dictated and finalized at [facility]. Impression: No evidence of pulmonary embolus, aortic dissection, or aortic aneurysm. Extensive probable necrotizing pneumonia in the lateral right upper lobe. Under lying neoplasm felt less likely, though not completely excluded. Right hilar lymphadenopathy, presumably reactive. Small right pleural effusion.
--- NOTE | ~2024-11-15 | XR_ITS ---
CHEST RADIOGRAPH, PA AND LATERAL CLINICAL HISTORY: CHEST PAIN . . COMPARISON: 09/01/2024 TECHNIQUE: PA and lateral views of the chest. FINDINGS The cardiomediastinal silhouette is unremarkable. Interval development of right upper lobe consolidation with central lucency and air-fluid levels, sug gesting necrotizing pneumonia. The remainder of the lungs are clear. IMPRESSION: Findings suggesting necrotizing pneumonia within the right upper lobe, an interval change from prior Reviewed, dictated and finalized at location A. IMPRESSION: Findings suggesting necrotizing pneumonia within the right upper lobe, an inter becka change from prior
--- NOTE | 2024-11-15 23:09 | ECG_ITS ---
Test Date: 2024-11-15 23:16:22 Measurements Intervals [place] Rate: 90 P: 53 [place]: 149 QRS: -52 QRSD: 103 T: 44 QT: 413 QTc: 506 Interpretive Statements SINUS RHYTHM MARKED LEFT AXIS DEVIATION [QRS AXIS < -30] Compared to ECG 09/01/2024 12:24:20 NO SIGNFICANT CHANGES Electronically Signed On 11-16-2024 12:42:12 CDT by Amanda Scott M.D.
--- OUTSIDE RECORDS SUMMARY | 2024-11-15 23:09 | XMS_ITS | Clinical Summary ---
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
--- OUTSIDE RECORDS SUMMARY | 2024-11-15 23:09 | XMS_ITS | Referral Summary ---
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
--- OUTSIDE RECORDS SUMMARY | 2024-11-15 23:10 | XMS_ITS | Patient Health Record ---
Author Organization [facility] [employer] Address [address] [place] [address] Care Team Providers Care Grinder Name Role Phone Jany Allen Primary Care Provider [phone] Allergies Allergen (clinical drug ingredient) Drug/Non Drug [...] W/U Status Risk Notes Problem Essential hypertension (90057298) Essential hypertension (I10) Active confirmed Problem Vitamin D deficiency (17391078) Vitamin D deficiency (E55.9) Active confirmed Problem Allergic rhinitis (98799775) Allergic rhinitis (J30.9) Active confirmed Problem 21627006 Tobacco dependence (F17.200) Active confirmed Problem 536641264 Memory loss (R41.3) Active confirmed Problem 605864036 Bulging lumbar disc (M51.26) Active confirmed Problem Type II diabetes mellitus (06277199) Type II diabetes mellitus (E11.9) Active confirmed Problem 592694904 Intractable migraine without status migrainosus, unspecified migraine type (G43.919) Active confirmed Problem High cholesterol (30238922) High cholesterol (E78.00) Active confirmed Plan Of Treatment No Information Insurance Providers Payer Name Payer Address Payer Phone Subscriber Number Group Number Insured Name Patient Relationship to Insured Coverage Start Date Coverage End Date [facility] [facility] [place] [facility] [address] [place], [place] [id number] Jared Meraz Self - patient is the insured 1 [employer] [facility] [place] FFS [address] [place], [place] [id number] Jared Meraz Self - patient is the insured 1 [employer] [facility] [place] Non Billable [address] [place], [place] [id number] Jared Meraz Self - patient is the [...]
--- OUTSIDE RECORDS SUMMARY | 2024-11-15 23:10 | XMS_ITS | Clinical Summary ---
Author Organization [facility] Address [address] [address] Phone Care Team Providers Care .Net Developer Name Role Phone Rony Mckenzie MD Primary Care Provider [phone] Allergies Active Allergy Reactions Criticality Noted Date Comments Hydrocodone Rash 12/10/2022 Penicillins Rash 12/10/2022 Medications cetirizine (ZyrTEC) 10 MG Tablet Take 10 mg by mouth daily. Active amLODIPine (NORVASC) 10 MG Tablet Take 10 mg by mouth daily. Active divalproex (DEPAKOTE) 250 MG Tablet Delayed Response Take 250 mg by mouth 3 times daily. Active escitalopram (LEXAPRO) 10 MG Tablet Take 10 mg by mouth daily. Active gabapentin (NEURONTIN) 300 MG Capsule Take 300 mg by mouth nightly. Active ibuprofen (MOTRIN) 800 MG Tablet Take 800 mg by mouth every 8 hours. Active levETIRAcetam (KEPPRA) 500 MG Tablet Take 500 mg by mouth 2 times daily. Active lidocaine (LIDODERM) 5 % Patch 1 Patch by Transdermal route every 24 hours. Active losartan (COZAAR) 100 MG Tablet Take 100 mg by mouth daily. Active montelukast (SINGULAIR) 10 MG Tablet Take 10 mg by mouth every evening. Active acetaminophen (TYLENOL) 500 MG Tablet Take 500 mg by mouth every 4 hours as needed. Active rosuvastatin (CRESTOR) 10 MG Tablet Take 10 mg by mouth daily. Active budesonide-form oterol fumarate (SYMBICORT) 160-4.5 MCG/ACT Aerosol take 2 Puffs by inhalation 2 times daily. Active albuterol (Ventolin HFA) 108 (90 Base) MCG/ACT Aerosol Solution take 2 Puffs by inhalation every 4 hours as needed. Active ARIPiprazole (ABILIFY) 15 MG Tablet Take 15 mg by mouth daily. Active benztropine (COGENTIN) 1 MG Tablet Take 1 mg by mouth 2 times daily. Active FLUoxetine HCl 20 MG Tablet Take 20 mg by mouth daily. Active glimepiride (AMARYL) 4 MG Tablet Take 4 mg by mouth every morning. Active metFORMIN (GLUCOPHAGE-XR) 500 MG TABLET SR 24 HR Take 500 mg by mouth daily. This RX is for Metformin SR. Active propranolol (INDERAL) 20 MG Tablet Take 20 mg by mouth daily. Active Family History Medical History Relation Name Comments Diabetes Mother Heart Attack Mother Stroke Mother Breast Cancer Sister Relation Name Status Comments Mother Sister Social History Tobacco Use Types Packs/Day Years Used Date Smoking Tobacco: Every Day Cigarettes 1 37.4 Started: 06/27/1987 Alcohol Use Standard Drinks/Week Comments Not Currently 0 (1 standard drink = 0.6 oz pur e alcohol) Sex and Gender Information Value Date Recorded Sex Assigned at Not on file Legal Sex Male 9:13 PM CDT Gender Identity Not on file Sexual Orientation Not on file Last Filed Vital Signs Vital Sign Reading Time Taken Comments Blood Pressure - - Pulse - - Temperature - - Respiratory Rate - - Oxygen Saturation - - Inhaled Oxygen Concentration - - Weight - - Height 170.2 cm (5' 7 ) 09/27/2024 3:45 PM CDT Body Mass Index - - Plan of Treatment Upcoming Encounters Date Type Department Care Team (Late st Contact Info) Description 03/11/2025 3:00 PM CDT Office Visit [facility] - Neurology [facility] [address] [place] [address] Jordon Echeverria MD [address] [place] [address] Health Maintenance Due Date Last Done Comments Hepatitis C Virus (HCV) Screening 1976 Hepatitis B Immunization (1 of 3 - 19+ 3-dose series) 1995 Colonoscopy 2021 Colorectal Cancer Screening 2021 SARS-COV-2 Immunization ( season) 2024 Respiratory Syncytial Virus (RSV) Immunization (Adult) (1 - 1-dose 75+ series) 2051 DTaP/Tdap/Td Immunization Discontinued 03/19/2019, TdaP Immunization Completed 03/19/2019, 03/23/2016 Influenza Immunization Completed 4, 07/19/2023, 03/20/2020, Additional history exists Pneumococcal Immunization Combined Completed 08/24/2024, 12/25/2019 Meningococcal Immunization (ACWY) Aged Out No longer eligible based on patient's age to complete this topic Rotavirus Immunization Aged Out No lo nger eligible based on patient's age to complete this topic Insurance MEDICAID AETNA [facility] Care Teams .Net Developer Relationship Specialty Start Date End Date Rony Mckenzie MD [address] [place] [address] PCP - General Internal Medicine 12/10/22
[2024-11-15 23:23] VITALS: BP 115/69; PULSE 97; RESP 17; TEMP 36.2; O2SAT 99
[2024-11-15 23:26] LABS: Basophils Percent Auto 0.3 % (0.2-1.2); Eosinophils Percent Auto 0.3 % (0-4.4); Hematocrit 39.1 % (42.0-52.0); Hemoglobin 12.3 g/dL (14.0-18.0); Immature Granulocyte Absolute 0.07 K/mm3 (0.00-0.031); Immature Granulocyte Percent A 0.4 % (0-0.5); Lymphocytes Absolute Auto 1.62 K/mm3 (0.9-3.2); Lymphocytes Percent Auto 10.2 % (18.3-44.2); Mean Corpuscular HGB Conc 31.5 g/dl (32-36); Mean Corpuscular Hemoglobin 27.6 pg (26-34); Mean Corpuscular Volume 87.9 fl (80-100); Mean Platelet Volume 8.2 fl (7.4-10.4); Monocytes Absolute Auto 1.3 K/mm3 (0.1-0.6); Monocytes Percent Auto 8.2 % (2.6-8.5); Neutrophils Absolute Auto 12.8 K/mm3 (1.3-6.7); Neutrophils Percent Auto 80.6 % (45.5-73.1); Platelet Count Result 486 k/mm3 (150-375); Red Blood Count 4.45 M/mm3 (4.6-6.20); Red Cell Distribution Width 12.7 % (11.5-14.5); White Blood Count 15.8 K/mm3 (4.5-10.0)
[2024-11-15 23:32] VITALS: PULSE 88; O2SAT 97
[2024-11-15 23:35] VITALS: O2SAT 97
[2024-11-15 23:36] LABS: Alanine Aminotransferase 14 U/L (6-50); Albumin Level 4.1 g/dL (3.5-5.1); Alkaline Phosphatase 105 U/L (38-126); Anion Gap 18 mmol/L (4-12); Aspartate Amino Transferase 26 U/L (17-59); Bilirubin,Total 0.7 mg/dL (0.2-1.3); Blood Urea Nitrogen 8 mg/dL (9-20); Calcium 9.3 mg/dL (8.4-10.2); Carbon Dioxide 22 mmol/L (22-30); Chloride 92 mmol/L (98-107); Estimated CRCL calculation 123 ml/min; Estimated Glomerular Filt Rate > 60; Glucose 298 mg/dL (65-110); Lipase 48 U/L (23-300); Potassium 3.8 mmol/L (3.4-5.0); Sodium 132 mmol/L (137-145)
[2024-11-15] MEDS: ASPIRIN 81 MG CHEWABLE TABLET 324 MG PO (23:41)
[2024-11-15 23:47] LABS: Troponin I < 0.012 ng/mL (0.000-0.034)
[2024-11-15 23:49] VITALS: PULSE 85; O2SAT 98
[2024-11-15 23:50] VITALS: BP 135/95; PULSE 88; O2SAT 98
[2024-11-15 23:57] LABS: INR 1.1; Prothrombin Time 14.6 Seconds (11.1-14.7)
[2024-11-15 23:58] LABS: Partial Thromboplastin Time 31.4 Seconds (22.3-36.8)
--- NOTE | 2024-11-16 | ED_ITS ---
HPI - URI/Sore Throat General Chief Complaint: Upper Respiratory Infection <Blank Yin PA-C - Last Filed: 11/16/24 17:13> Stated Complaint: Right side chest pain, congestion, cough <Blank Yin PA-C - Last Filed: 11/16/24 17:13> Time Seen by Provider: 11/15/24 23:32 <TARSHA Ramírez Last Filed: 11/16/24 17:13> Source: patient <Blank Yin PA-C - Last Filed: 11/16/24 17:13> Mode of arrival: ambulatory <TARSHA Ramírez Last Filed: 11/16/24 17:13> Limitations: no limitations <Blank Yin PA-C - Last Filed: 11/16/24 17:13> History of Present Illness HPI Narrative: This is a 49 year old male that presents to the ER for right sided chest pain. Reports associated cough, congestion. Reports his symptoms have been ongoing over the last several weeks. <Blank Yin PA-C - Last Filed: 11/16/24 17:13> Related Data Home Medications: Home Medications ?Medication ?Instructions ?Recorded ?Confirmed ?Last Taken ?Type amlodipine 10 mg tablet mg 12/22/23 Unknown History aripiprazole 15 mg tablet mg 12/22/23 Unknown History benztropine 1 mg tablet mg 12/22/23 Unknown History escitalopram oxalate 20 mg tablet mg 12/22/23 Unknown History gabapentin 300 mg capsule mg 12/22/23 Unknown History ibuprofen 800 mg tablet mg 12/22/23 Unknown History losartan 100 mg tablet mg 12/22/23 Unknown History metformin 500 mg tablet,extended mg PO 12/22/23 Unknown History release 24 hr montelukast 10 mg tablet mg 12/22/23 Unknown History propranolol 20 mg tablet mg 12/22/23 Unknown History rosuvastatin 10 mg tablet mg 12/22/23 Unknown History <TARSHA Ramírez Last Filed: 11/16/24 17:13> Allergies/Adverse Reactions: Allergies Allergy/AdvReac Type Severity Reaction Status Date / Time Penicillins Allergy Unknown Rash Verified 11/15/24 23:08 hydrocodone Allergy Rash Verified 11/15/24 23:08 <Blank Yin PA-C - Last Filed: 11/16/24 17:13> Review of Systems 2 Review of Systems: CONSTITUTIONAL: Denies fever CARDIOVASCULAR: Reports chest pain. Denies edema. RESPIRATORY: Reports cough and dyspnea. <TARSHA Ramírez Last Filed: 11/16/24 17:13> All systems reviewed & are unremarkable except as noted in HPI and below < Blank Yin PA-C - Last Filed: 11/16/24 17:13> PMFSH Past Medical History Medical History: Medical History Anxiety Depression Epilepsy Hypertension <TARSHA Ramírez Last Filed: 11/16/24 17:13> Social History Social History: Social History Smoking status: Current every day smoker Alcohol intake: never Substance use type: marijuana <Blank Yin PA-C - Last Filed: 11/16/24 17:13> Exam 2 Narrative: GENERAL: Well-appearing, well-nourished, and in no acute distress. HEAD: Normocephalic, atraumatic. EYES: EOMI. ENT: Nares clear, no rhinorrhea or epistaxis. Mucous membranes moist. Oropharynx without tonsillar hypertrophy exudate or other lesions. NECK: Supple. No adenopathy or masses. CHEST: No respiratory distress. Rales in the right mid lung. No wheezes or rhonchi HEART: Regular rate and rhythm. No murmur heard. Normal peripheral pulses. EXTREMITIES: Normal range of motion. No edema. SKIN: Warm, dry, no rash. NEURO: No focal deficits. Alert and oriented x3. PSYCH: Normal mood and affect <TARSHA Ramírez Last Filed: 11/16/24 17:13> Course Course Emergency Course: Patient updated on workup thus far. Care taken over by Dr. Barrientos at shift change <TARSHA Ramírez Last Filed: 11/16/24 17:13> Vital Signs Vital signs: Vital Signs Temperature 97.2 F L 05/22/25 23:23 Pulse Rate 97 11/15/24 23:23 Respiratory Rate 17 11/15/24 23:23 Blood Pressure 115/69 11/15/24 23:23 Pulse Oximetry 99 11/15/24 23:23 Oxygen Delivery Room Air 11/15/24 23:23 Temperature 97.2 F L 11/15/24 23:23 Pulse Rate 84 11/16/24 03:51 Respiratory Rate 19 11/16/24 03:51 Blood Pressure 98/60 L 11/16/24 03:51 Pulse Oximetry 97 11/16/24 03:51 Oxygen Delivery Room Air 11/15/24 23:35 <Blank Yin PA-C - Last Filed: 11/16/24 17:13> Vital Signs Temperature 97.2 F L 11/15/24 23:23 Pulse Rate 97 11/15/24 23:23 Respiratory Rate 17 11/15/24 23:23 Blood Pressure 115/69 11/15/24 23:23 Pulse Oximetry 99 11/15/24 23:23 Oxygen Delivery Room Air 11/15/24 23:23 Temperature 97.2 F L 11/15/24 23:23 Pulse Rate 84 11/16/24 03:51 Respiratory Rate 19 11/16/24 03:51 Blood Pressure 98/60 L 11/16/24 03:51 Pulse Oximetry 97 11/16/24 03:51 Oxygen Delivery Room Air 11/15/24 23:35 <Jessica Barrientos MD - Last Filed: 11/16/24 08:03> MDM - URI/Sore Throat MDM Narrative Medical decision making narrative: Patient signed out to me at 3:[address] a[address] pending interpretation of CT PE study. At approximately 3:30 a.m. he does become adamant to the nurse that he is refusing to stay any wants to leave. I did go to bedside and patient is breathing approximately 35-40 times per minute. The patient is oriented to person, place, and time, has the capacity to make decisions regarding the medical care offered. The patient speaks coherently and exhibits no evidence of having an altered level of consciousness or alcohol or drug intoxication to a point that would impair judgment. He is refusing to stay for the results of his he CT scan. We discussed that the determination as to whether he has a pulmonary embolism and that this would twisting frame changer and would represent serious risk of decompensation and . We also discussed that the severity of this pneumonia and/or other pathology was unknown at this time. He verifies these risks but is still choosing to leave. He is given printed instructions as well as electronic prescription for additional antibiotic although he has also received a dose of ceftriaxone azithromycin already. He is encouraged to return to the emergency department at any time. ADDENDUM: CTA chest stat read interpretation: There is a multiloculated pulmonary fluid-filled cavitary lesion versus abscesses the right upper lobe with surrounding airspace opacity. The cavitary component measures 3.3 x 6.6 x 5.5 cm in aggregate. The differential includes cavitary pneumonia, including tuberculosis, less likely cavitary neoplasm. Small right pleural effusion. Subtle airspace opacities of the left lower lobe or also noted. Heart size within normal limits. Right hilar lymph nodes measure up to 1.5 cm in short axis and may be infectious inflammatory or less likely malignant. No fracture. No incidental findings. These findings were discussed with me by the radiologist. Attempted to call patient not 526 cm but not available and unable to leave voicemail. Charge nurse attempted to call patient at 7:55 no answer no voicemail left. Able to reach patient's significant other at 7:56 a.m. and she is with patient. He was put on the phone and I did explain patient's findings and concerns and strongly encouraged him to present again to the emergency department. He verifies understanding. His was very concerned and is hopeful she can convince him to come to the emergency department. Impression: No evidence of pulmonary embolus, aortic dissection, or aortic aneurysm. Extensive probable necrotizing pneumonia in the lateral right upper lobe. Underlying neoplasm felt less likely, though not completely excluded. Right hilar lymphadenopathy, presumably reactive. Small right pleural effusion. <Jessica Barrientos MD - Last Filed: 11/16/24 08:03> Lab Data Attestation: I reviewed the patient's lab results. <Blank Yin PA-C - Last Filed: 11/16/24 17:13> Result diagrams: 11/15/24 23:18 11/15/24 23:18 <Blank Yin PA-C - Last Filed: 11/16/24 17:13> Labs: Lab Results 11/15/24 11/16/24 11/16/24 Range/Units 23:18 00:18 02:29 WBC 15.8 H (4.5-10.0) K/mm3 RBC 4.45 L (4.6-6.20) M/mm3 Hgb 12.3 L (14.0-18.0) g/dL Hct 39.1 L (42.0-52.0) % MCV 87.9 (80-100) fl MCH 27.6 (26-34) pg MCHC 31.5 L (32-36) g/dl RDW 12.7 (11.5-14.5) % Plt Count 486 H D (150-375) k/mm3 MPV 8.2 (7.4-10.4) fl Immature Gran % (Auto) 0.4 (0-0.5) % Neut % (Auto) 80.6 H (45.5-73.1) % Lymph % (Auto) 10.2 L (18.3-44.2) % [place] % (Auto) 8.2 (2.6-8.5) % Eos % (Auto) 0.3 (0-4.4) % Baso % (Auto) 0.3 (0.2-1.2) % Lymph # (Auto) 1.62 (0.9-3.2) K/mm3 [place] # (Auto) 1.3 H (0.1-0.6) K/mm3 Eos # (Auto) 0.0 (0-0.3) K/mm3 Baso # (Auto) 0.0 (0.0-0.1) K/mm3 Abs Immat Gran (auto) 0.07 H (0.00-0.031) K/mm3 Absolute Neuts (auto) 12.8 H (1.3-6.7) K/mm3 Absolute Nucleated RBC 0.000 (0.0-0.012) K/mm3 Nucleated RBC % 0.0 (0.0-0.2) % PT 14.6 (11.1-14.7) Seconds INR 1.1 APTT 31.4 (22.3-36.8) Seconds Sodium 132 L (137-145) mmol/L Potassium 3.8 (3.4-5.0) mmol/L Chloride 92 L (98-107) mmol/L Carbon Dioxide 22 (22-30) mmol/L Anion Gap 18 H (4-12) mmol/L BUN 8 L D (9-20) mg/dL Creatinine 0.58 L (0.7-1.3) mg/dL Estim Creat Clear Calc 123 ml/min Estimated GFR > 60 (59 - ) Glucose 298 H (65-110) mg/dL Calcium 9.3 (8.4-10.2) mg/dL Total Bilirubin 0.7 (0.2-1.3) mg/dL AST 26 (17-59) U/L ALT 14 (6-50) U/L Alkaline Phosphatase 105 (38-126) U/L Troponin I < 0.012 < 0.012 (0.000-0.034) ng/mL Total Protein 8.0 (6.3-8.2) g/dL Albumin 4.1 (3.5-5.1) g/dL Lipase 48 (23-300) U/L Influenza A (RT-PCR) Negative (Negative) Influenza B (RT-PCR) Negative (Negative) RSV (RT-PCR) Negative (Negative) SARS-CoV-2 RNA (RT-PCR) Negative (Negative) <Blank Yin PA-C - Last Filed: 11/16/24 17:13> Lab Results 11/15/24 11/16/24 11/16/24 Range/Units 23:18 00:18 02:29 WBC 15.8 H (4.5-10.0) K/mm3 RBC 4.45 L (4.6-6.20) M/mm3 Hgb 12.3 L (14.0-18.0) g/dL Hct 39.1 L (42.0-52.0) % MCV 87.9 (80-100) fl MCH 27.6 (26-34) pg MCHC 31.5 L (32-36) g/dl RDW 12.7 (11.5-14.5) % Plt Count 486 H D (150-375) k/mm3 MPV 8.2 (7.4-10.4) fl Immature Gran % (Auto) 0.4 (0-0.5) % Neut % (Auto) 80.6 H (45.5-73.1) % Lymph % (Auto) 10.2 L (18.3-44.2) % [place] % (Auto) 8.2 (2.6-8.5) % Eos % (Auto) 0.3 (0-4.4) % Baso % (Auto) 0.3 (0.2-1.2) % Lymph # (Auto) 1.62 (0.9-3.2) K/mm3 [place] # (Auto) 1.3 H (0.1-0.6) K/mm3 Eos # (Auto) 0.0 (0-0.3) K/mm3 Baso # (Auto) 0.0 (0.0-0.1) K/mm3 Abs Immat Gran (auto) 0.07 H (0.00-0.031) K/mm3 Absolute Neuts (auto) 12.8 H (1.3-6.7) K/mm3 Absolute Nucleated RBC 0.000 (0.0-0.012) K/mm3 Nucleated RBC % 0.0 (0.0-0.2) % PT 14.6 (11.1-14.7) Seconds INR 1.1 APTT 31.4 (22.3-36.8) Seconds Sodium 132 L (137-145) mmol/L Potassium 3.8 (3.4-5.0) mmol/L Chloride 92 L (98-107) mmol/L Carbon Dioxide 22 (22-30) mmol/L Anion Gap 18 H (4-12) mmol/L BUN 8 L D (9-20) mg/dL Creatinine 0.58 L (0.7-1.3) mg/dL Estim Creat Clear Calc 123 ml/min Estimated GFR > 60 (59 - ) Glucose 298 H (65-110) mg/dL Calcium 9.3 (8.4-10.2) mg/dL Total Bilirubin 0.7 (0.2-1.3) mg/dL AST 26 (17-59) U/L ALT 14 (6-50) U/L Alkaline Phosphatase 105 (38-126) U/L Troponin I < 0.012 < 0.012 (0.000-0.034) ng/mL Total Protein 8.0 (6.3-8.2) g/dL Albumin 4.1 (3.5-5.1) g/dL Lipase 48 (23-300) U/L Influenza A (RT-PCR) Negative (Negative) Influenza B (RT-PCR) Negative (Negative) RSV (RT-PCR) Negative (Negative) SARS-CoV-2 RNA (RT-PCR) Negative (Negative) <Jessica Barrientos MD - Last Filed: 11/16/24 08:03> Imaging Data Radiologist's impression: ITS Impressions Chest X-Ray 11/16/24 00:07 IMPRESSION: Findings suggesting necrotizing pneumonia within the right upper lobe, an interval change from prior <Blank Yin PA-C - Last Filed: 11/16/24 17:13> ECG Data EKG #1: ECG completion date: 11/15/24 <Blank Yin PA-C - Last Filed: 11/16/24 17:13> EKG Interpretation: normal rate and sinus rhythm <TARSHA Ramírez Last Filed: 11/16/24 17:13> Critical Care Time Critical Care Time Critical Care Time: No <Blank Yin PA-C - Last Filed: 11/16/24 17:13> Discharge Plan Discharge Clinical Impression: Pneumonia Qualifiers: Pneumonia type: due to unspecified organism Laterality: right Lung location: u pper lobe of lung Qualified Code(s): J18.9 - Pneumonia, unspecified organism <Blank Yin PA-C - Last Filed: 11/16/24 17:13> Patient Disposition: Left Against Medical Advice <Blank Yin PA-C - Last Filed: 11/16/24 17:13> Condition: Stable <Blank Yin PA-C - Last Filed: 11/16/24 17:13> Instructions: Antibiotic Form, Pneumonia (ED) <Blank Yin PA-C - Last Filed: 11/16/24 17:13> Additional Instructions: You are leaving against medical advice because the result of your CT scan has not resulted to determine if you have a blood clot, the degree of your pneumonia, and/or other pathology. You received the 1st dose of antibiotic in the emergency department and additional antibiotic was prescribed. You are at risk of decompensation and . You are encouraged to return to the emergency department if your condition worsens or for any new or unmanaged symptoms <Blank Yin PA-C - Last Filed: 11/16/24 17:13> Patient Language: [place] <Blank Yin PA-C - Last Filed: 11/16/24 17:13> Prescriptions: New azithromycin 500 mg tablet 500 mg PO DAILY 4 Days Qty: 4 0RF No Action ibuprofen 800 mg tablet amlodipine 10 mg tablet benztropine 1 mg tablet gabapentin 300 mg capsule montelukast 10 mg tablet propranolol 20 mg tablet losartan 100 mg tablet metformin 500 mg tablet extended release 24 hr PO escitalopram oxalate 20 mg tablet aripiprazole 15 mg tablet rosuvastatin 10 mg tablet prednisone 20 mg tablet 40 mg PO DAILY 5 Days Qty: 10 0RF famotidine [Pepcid] 20 mg tablet 20 mg PO BID Qty: 10 0RF albuterol sulfate 90 mcg/actuation HFA aerosol inhaler 2 puff INHALATION QID PRN (Reason: shortness of breath or wheezing) Qty: 8 0RF fluticasone propionate [Allergy Relief (fluticasone)] 50 mcg/actuation spray,suspension 1 spray intranasal BID Qty: 16 0RF Rx Instructions: administer into each nostril acetaminophen 500 mg capsule 500 mg PO Q8H PRN (Reason: pain) Qty: 60 0RF Rx Instructions: Take 2 tabs by mouth every 8 hours for 3 days, then 1-2 tabs by mouth every 8 hours as needed for pain lidocaine [Lidoderm] 5 % adhesive patch,medicated 1 patch topical DAILY Qty: 30 0RF Rx Instructions: leave on most painful area for up to 12 hrs naproxen 500 mg tablet 500 mg PO BID PRN (Reason: pain) 7 Days Qty: 14 0RF <Blank Yin PA-C - Last Filed: 11/16/24 17:13> Follow-up/Referrals: Lazaro,Harriet Presley MD [Primary Care Provider] - <Blank Yin PA-C - Last Filed: 11/16/24 17:13>
--- OUTSIDE RECORDS SUMMARY | 2024-11-16 00:02 | XMS_ITS | Referral Summary ---
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
--- OUTSIDE RECORDS SUMMARY | 2024-11-16 00:02 | XMS_ITS | Patient Health Record ---
Author Organization [facility] Address [address] [facility] [facility] [address] [place] [address] Care Team Providers Care Office Helper Clerical Name Role Phone Jany Allen Primary Care Provider Allergies Allergen (clinical drug ingredient) Drug/Non Drug [...] W/U Status Risk Notes Problem Essential hypertension (53359556) Essential hypertension (I10) Active confirmed Problem Vitamin D deficiency (86832110) Vitamin D deficiency (E55.9) Active confirmed Problem Allergic rhinitis (16457919) Allergic rhinitis (J30.9) Active confirmed Problem 19815502 Tobacco dependence (F17.200) Active confirmed Problem 295668234 Memory loss (R41.3) Active confirmed Problem 273330641 Bulging lumbar disc (M51.26) Active confirmed Problem Type II diabetes mellitus (78718430) Type II diabetes mellitus (E11.9) Active confirmed Problem 265950679 Intractable migraine without status migrainosus, unspecified migraine type (G43.919) Active confirmed Problem High cholesterol (41359494) High cholesterol (E78.00) Active confirmed Plan Of Treatment No Information Insurance Providers Payer Name Payer Address Payer Phone Subscriber Number Group Number Insured Name Patient Relationship to Insured Coverage Start Date Coverage End Date [employer] [facility] [place] [employer] [address] [place], [place] [id number] Jared Mearz Self - patient is the insured 1 [employer] [facility] [employer] [facility] [place] FFS [address] [place], [place] [id number] Jared Meraz Self - patient is the insured 1 [employer] [facility] [place] Non Billable [address] [place], [place] [id number] Jared Meraz Self - patient is the [...]
--- OUTSIDE RECORDS SUMMARY | 2024-11-16 00:02 | XMS_ITS | Clinical Summary ---
Author Organization [facility] Address [address] [address] Phone Care Team Providers Care Well Control Instructor Name Role Phone Rony Mckenzie MD Primary Care Provider [phone] Allergies Active Allergy Reactions Criticality Noted Date [...] Visit [facility] - Neurology [facility] [address] [place] [address] Jordon Echeverria MD [address] [place] [address] Health Maintenance Due Date Last Done Comments [...] to complete this topic Insurance MEDICAID [employer] [facility] Care Teams Well Control Instructor Relationship Specialty Start Date End Date Rony Mckenzie MD [address] [place] [address] PCP - General Internal Medicine 12/10/22
--- OUTSIDE RECORDS SUMMARY | 2024-11-16 00:02 | XMS_ITS | Clinical Summary ---
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
[2024-11-16] MEDS: SODIUM CHLORIDE 0.9% IV 1,000 ML 999 ML IV CONT (00:12)
[2024-11-16 00:28] VITALS: BP 101/67; PULSE 86; O2SAT 96
[2024-11-16 00:51] VITALS: BP 100/62; PULSE 85; O2SAT 97
[2024-11-16 01:00] VITALS: PULSE 86; RESP 19; O2SAT 97
[2024-11-16 01:01] VITALS: BP 100/61; PULSE 86; RESP 16; O2SAT 97
[2024-11-16 01:02] LABS: Influenza A QL RT-PCR Negative (Negative); Influenza B QL RT-PCR Negative (Negative); RSV RNA, RT-PCR Negative (Negative); SARS-CoV-2 RNA PCR Negative (Negative)
[2024-11-16] MEDS: AZITHROMYCIN 500 MG/NS 250 ML 500 MG/250 ML BAG 250 MG IVPB (01:27)
--- NOTE | 2024-11-16 02:07 | ECG_ITS ---
Test Date: 2024-11-16 02:12:41 Measurements Intervals [place] Rate: 74 P: 22 OK: 152 QRS: -37 QRSD: 98 T: 40 QT: 426 QTc: 474 Interpretive Statements SINUS RHYTHM LEFT AXIS DEVIATION [QRS AXIS < -30] Compared to ECG 11/15/2024 23:16:22 No significant changes Electronically Signed On 11-16-2024 12:42:41 CDT by Amanda Scott M.D.
[2024-11-16 02:33] VITALS: BP 96/78; PULSE 75; RESP 36; O2SAT 97
[2024-11-16 03:03] LABS: Troponin I < 0.012 ng/mL (0.000-0.034)
[2024-11-16 03:51] VITALS: BP 98/60; PULSE 84; RESP 19; O2SAT 97
== END 2024-11-16 03:50 | disposition left against medical advice (07) ==
PROVIDERS: Physician Assistant; Emergency Provider Student in an Organized Health Care Education/Training Program; PCP Family Medicine
DX: J18.9 Pneumonia, unspecified organism (principal); Z20.822 Contact with and (suspected) exposure to COVID-19; G40.909 Epilepsy, unspecified, not intractable, without status epilepticus; I10 Essential (primary) hypertension; F41.9 Anxiety disorder, unspecified; F32.A Depression, unspecified; F17.200 Nicotine dependence, unspecified, uncomplicated; Z79.84 Long term (current) use of oral hypoglycemic drugs; Z79.899 Other long term (current) drug therapy
CPT/HCPCS: 36415; 71046; 71275; 80053; 83690; 84484; 85025; 85610; 85730; 87040; 87637; 93005; 96365; 96368; 99284; A9270; J0456; J0696; J7030; Q9967

== ENCOUNTER 2024-11-16 17:38 | Inpatient (IN) | payer OTHER, SELFPAY ==
[2024-11-16] VITALS (9 sets, daily range): BP systolic 106–109; BP diastolic 65–80; PULSE 80–87; RESP 18–42; TEMP 36.4–36.9; O2SAT 95–98; BMI 25.5
--- NOTE | ~2024-11-16 | XR_ITS ---
CHEST RADIOGRAPH, PA AND LATERAL CLINICAL HISTORY: cough, shortness of breath . COMPARISON: 11/15/2024. Reference is also made to a CT of the chest performed approximately 18 hours earlier. TECHNIQUE: PA and lateral views of the chest. FINDINGS Redemonstration of a large right-sided infiltrate with air-fluid levels increased in size from prior examination. Measuring 8.4 x 5.9 cm (cranial to caudal and medial to lateral dimension). Interval development of a moderate right-sided pleural effusion, not present on the previous examinat ion. The cardiomediastinal silhouette is unremarkable. The left hemithorax is clear. IMPRESSION: Redemonstration of necrotizing pneumonia, increased in size from previous examination, now with a rig ht-sided pleural effusion. Reviewed, dictated and finalized at location A. IMPRESSION: Redemonstration of necrotizing pneumonia, increased in size from previous exami nation, now with a right-sided pleural effusion.
--- NOTE | ~2024-11-16 | XR_ITS ---
CHEST RADIOGRAPH, PA AND LATERAL CLINICAL HISTORY: pleural effusion, PNA . COMPARISON: 11/16/2024 TECHNIQUE: PA and lateral views of the chest. FINDINGS The cardiomediastinal silhouette is unremarkable. Interval increase in size of the focus of necrotizing pneumonia within the right upper lobe measuring 8.7 x 6.9 cm (compared with 8.4 x 5.9 cm on the previous study performed 2 days earlier). Interval increase in the size of the right-sided pleural effusion when compared with previous study p erformed 2 days earlier. The left hemithorax remains clear. IMPRESSION: Interval increase in size of the right-sided necrotizing pneumonia with interval increase in the righ t-sided pleural effusion, when compared with previous examination performed approximately 2 days bernie ier. Reviewed, dictated and finalized at location A. IMPRESSION: Interval increase in size of the right-sided necrotizing pneumonia with interva l increase in the right-sided pleural effusion, when compared with previous exa mination performed approximately 2 days earlier.
--- NOTE | ~2024-11-16 | XR_ITS ---
MODIFIED ESOPHAGRAM HISTORY: Aspiration pneumonia TECHNIQUE: Modified barium esophagram was performed on 11/20/2024. I administered fluoroscopy and perf ormed the exam with speech pathologist. Patient was seated for lateral fluoroscopic imaging for clarence stion of thin liquids, pudding, solids and quantified amounts, followed by thin liquids in uncontroll ed amounts. This was recorded on tape. A single fluoroscopic spot image was also recorded. The DAP fo r this procedure was 1 Gycm2. The amount of fluoroscopy time used during this procedure was 1.6 minut es. FINDINGS: Oral stage: Adequate function. Pharyngeal stage: Adequate function. Cervical/esophageal stage: Adequate function. IMPRESSION: Patient tolerated regular consistency oral feedings in the upright position. Please collette elate with speech pathologist findings and specific feeding recommendations. Reviewed, dictated and finalized at location A. IMPRESSION: Patient tolerated regular consistency oral feedings in the upright position. Please correlate with speech pathologist findings and specific feedi ng recommendations.
--- NOTE | ~2024-11-16 | XR_ITS ---
CHEST RADIOGRAPH CLINICAL HISTORY: lung abscess . COMPARISON: 11/18/2024 and dating back to 09/01/2024 TECHNIQUE: Single portable view of the chest. FINDINGS Redemonstration of a density within the right upper lobe with air-fluid levels, minimally decreased i n size from previous examination now measuring 7.7 x 6.2 cm (compared with 8.7 x 6.9 cm on the previo us study). Redemonstration of a right-sided pleural effusion, unchanged in size. The left hemithorax remains clear. IMPRESSION: Minimal decrease in size of the right-sided pleural effusion and the right lung fluid collection with air-fluid levels, as detailed above Reviewed, dictated and finalized at location A.
--- OUTSIDE RECORDS SUMMARY | 2024-11-16 17:41 | XMS_ITS | Clinical Summary ---
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
--- OUTSIDE RECORDS SUMMARY | 2024-11-16 17:41 | XMS_ITS | Referral Summary ---
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
--- OUTSIDE RECORDS SUMMARY | 2024-11-16 17:41 | XMS_ITS | Clinical Summary ---
Author Organization [facility] Address [address] [address] Phone Care Team Providers Care Supervisor Reinforced Steel Placing Name Role Phone Rony Mckenzie MD Primary Care Provider [phone] Allergies Active Allergy Reactions Criticality Noted Date [...] Weight - - Height 170.2 cm (5' 7) 09/27/2024 3:45 PM CDT Body Mass Index - - Plan of Treatment Upcoming Encounters Date Type Department Care Team (Late st Contact Info) Description 03/11/2025 3:00 PM CDT Office Visit [facility] - [facility]rology [facility] [address] [place] [address] Jordon Echeverria MD [address] [place] [address] Health Maintenance Due Date Last Done Comments [...] to complete this topic Insurance MEDICAID AETNA [facility] Care Teams Supervisor Reinforced Steel Placing Relationship Specialty Start Date End Date Rony Mckenzie MD [address] [place] [address] PCP - General Internal Medicine 12/10/22
--- NOTE | 2024-11-16 17:50 | ECG_ITS ---
Test Date: 2024-11-16 18:00:48 Measurements Intervals [place] Rate: 77 P: 46 MD: 156 QRS: -57 QRSD: 99 T: 1 QT: 402 QTc: 455 Interpretive Statements SINUS RHYTHM LEFT AXIS DEVIATION [QRS AXIS < -30] Compared to ECG 11/16/2024 02:12:41 No significant changes Electronically Signed On 11-17-2024 17:07:56 CDT by Gabriel Olivier M.D.
--- NOTE | 2024-11-16 17:51 | ED_ITS ---
HPI - General Adult General Chief complaint: Unspecified <Merissa Rankin APRN - Last Filed: 11/16/24 17:57> Stated complaint: I was told to come back and finish my visit <Merissa Rankin APRN - Last Filed: 11/16/24 17:57> Time Seen by Provider: 11/16/24 17:50 <Merissa Rankin APRN - Last Filed: 11/16/24 17:57> Focused HPI: Patient is a 49-year-old male who presents to the ER with a 1 month history of a cough. He endorses wheezing and shortness of breath. Patient also reports he is a cigarette smoker. He denies any recent fevers, back pain, abdominal pain or lower extremity edema. Patient reports he was here in the ER yesterday and left against medical advice, the received a phone call this morning advising him to return to ER for further evaluation. GENERAL: Well-appearing, well-nourished, and in no acute distress. HEAD: Normocephalic, atraumatic. CHEST: Coarse to auscultation. ?No respiratory distress. HEART: Regular rate and rhythm.? NEURO: ?Alert and oriented x3. Patient screened in triage and initial orders placed.? ?Additional care and disposition to be based upon?diagnostic testing and treatment. <Merissa Rankin APRN - Last Filed: 11/16/24 17:57> Related Data Home medications: Home Medications ?Medication ?Instructions ?Recorded ?Confirmed ?Last Taken ?Type amlodipine 10 mg tablet 10 mg PO DAILY 12/22/23 11/16/24 11/15/24 History aripiprazole 15 mg tablet 15 mg PO DAILY 12/22/23 11/16/24 11/15/24 History benztropine 1 mg tablet 1 mg PO DAILY 12/22/23 11/16/24 11/15/24 History gabapentin 300 mg capsule 300 mg PO DAILY 12/22/23 11/16/24 11/15/24 History ibuprofen 800 mg tablet 800 mg PO DAILY 12/22/23 11/16/24 11/15/24 History losartan 100 mg tablet 100 mg PO DAILY 12/22/23 11/16/24 11/15/24 History metformin 500 mg tablet,extended 1,000 mg PO BID 12/22/23 11/16/24 11/15/24 21:00 History release 24 hr montelukast 10 mg tablet 10 mg PO DAILY 12/22/23 11/16/24 11/15/24 History propranolol 20 mg tablet 20 mg PO DAILY 12/22/23 11/16/24 11/15/24 History rosuvastatin 10 mg tablet 20 mg PO DAILY 12/22/23 11/16/24 11/15/24 History divalproex 250 mg tablet,delayed 250 mg PO Q8H 11/16/24 11/16/24 Unknown History release (Depakote) empagliflozin 25 mg tablet 25 mg PO DAILY 11/16/24 11/16/24 Unknown History (Jardiance) fluoxetine 40 mg capsule 40 mg PO DAILY 11/16/24 11/16/24 Unknown History levetiracetam 500 mg tablet 500 mg PO BID 11/16/24 11/16/24 Unknown History (Keppra) <Merissa Rankin APRN - Last Filed: 11/16/24 17:57> Allergies/adverse reactions: Allergies Allergy/AdvReac Type Severity Reaction Status Date / Time Penicillins Allergy Unknown Rash Verified 11/16/24 18:10 hydrocodone Allergy Rash Verified 11/16/24 18:10 <Merissa Rankin APRN - Last Filed: 11/16/24 17:57> Review of Systems 2 Review of Systems: CONSTITUTIONAL: Denies fever CARDIOVASCULAR: Reports chest pain RESPIRATORY: Reports cough and dyspnea. <Blank Yin PA-C - Last Filed: 11/16/24 19:18> All systems reviewed & are unremarkable except as noted in HPI and below < Blank Yin PA-C - Last Filed: 11/16/24 19:18> [facility] Past Medical History Medical History: Medical History (Updated 11/17/24 @ 07:53 by Abril Joshi DO) Bipolar disorder COPD (chronic obstructive pulmonary disease) Hyperlipidemia Anxiety Depression Hypertension Epilepsy <Merissa Rankin APRN - Last Filed: 11/16/24 17:57> Surgical History Surgical History: Surgical History (Updated 11/17/24 @ 07:31 by Abril Joshi DO) History of spinal surgery <Merissa Rankin APRN - Last Filed: 11/16/24 17:57> Family History Family History: Family History (Updated 11/17/24 @ 07:33 by Abril Joshi DO) Other Unknown family medical history <Merissa DomingoHenrik Rankin, SECURITY GUARD SUPERVISOR - Last Filed: 11/16/24 17:57> Social History Social History: Social History (Updated 11/17/24 @ 07:35 by Abril Joshi DO) Social History: The patient is and lives with his significant other Wanda. He has 1 daughter. He has smoked approximately 1.5 packs of cigarettes per day and started smoking at the age of 13. He denies any history of heavy alcohol use. 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 Code status: Full code Surrogate decision maker: His daughter or his significant other Wanda Smoking packs per day: 1.5 Smoking cigarettes per day: 30.0 Years smoked: 36 Smoking pack-years: 54.00 Smoking status: Current every day smoker Alcohol intake: former Substance use: never Do You Feel Safe in your Home?: Yes Lack of Transportation: No Lack of Food: Never True Current Housing: I Have Housing Concerned About Future Housing: No Difficulty Paying Gas/Electric Bills: No Difficulty Paying for Meds: No Currently Unemployed: No Education: Grade School Difficulty w/ Childcare or Family Care: No Spiritual care concerns: No <Merissa DomingoHenrik Rankin, SECURITY GUARD SUPERVISOR - Last Filed: 11/16/24 17:57> Exam 2 Narrative: GENERAL: Well-appearing, well-nourished, and in no acute distress. HEAD: Normocephalic, atraumatic. EYES: EOMI. ENT: Nares clear, no rhinorrhea or epistaxis. Mucous membranes dry. Oropharynx without tonsillar hypertrophy exudate or other lesions. NECK: Supple. No adenopathy or masses. CHEST: No respiratory distress. Rales in the right upper lobe. No wheezes or rhonchi HEART: Regular rate and rhythm. No murmur heard. Normal peripheral pulses. EXTREMITIES: Normal range of motion. No edema. SKIN: Warm, dry, no rash. NEURO: No focal deficits. Alert and oriented x3. PSYCH: Normal mood and affect <Blank Yin PA-C - Last Filed: 11/16/24 19:18> Course Course Emergency Course: Patient updated on his workup and need for admission <TERRI Ramírez - Last Filed: 11/16/24 19:18> OXYACETYLENE WELDER/PA Physician Supervision Patient had been signed out to me overnight 11/16/24 and I had reviewed risks/benefits when he elected to sign out AMA. Later received phone call from [facility] radiologist indicating interpretation. Kwasi radiology impression of CT later results. Attempted to call patient and was able to get ahold of him the morning of 11/16 urging him to present again to the ED given the concerns for cavitary lesions/abscess/TB. he had verified understanding. I was informed that patient had presented back to the ED. Patient now being admitted to the hospital. I was therefore involved in his care as described here but did not personally evaluate him when he presented to the ED the evening of 11/16/24 to be admitted but I was available for consultation. <Jessica Barrientos MD - Last Filed: 11/17/24 18:02> Consultations Consultation #1: Spoke with hospitalist about patient and workup accepts admission. Will place consult for pulmonology <Blank Yin PA-C - Last Filed: 11/16/24 19:18> Date: 11/16/24 <Blank Yin PA-C - Last Filed: 11/16/24 19:18> Vital Signs Vital signs: Vital Signs Temperature 97.6 F 11/16/24 17:43 Pulse Rate 86 11/16/24 17:43 Respiratory Rate 18 11/16/24 17:43 Blood Pressure 108/67 11/16/24 17:43 Pulse Oximetry 98 11/16/24 17:43 Oxygen Delivery Room Air 11/16/24 17:43 Temperature 98.1 F 11/17/24 14:00 Pulse Rate 73 11/17/24 14:00 Respiratory Rate 16 11/17/24 14:00 Blood Pressure 115/71 11/17/24 14:00 Pulse Oximetry 95 11/17/24 14:00 Oxygen Delivery Room Air 11/17/24 09:50 <Merissa Rankin APRN - Last Filed: 11/16/24 17:57> Vital Signs Temperature 97.6 F 11/16/24 17:43 Pulse Rate 86 11/16/24 17:43 Respiratory Rate 18 11/16/24 17:43 Blood Pressure 108/67 11/16/24 17:43 Pulse Oximetry 98 11/16/24 17:43 Oxygen Delivery Room Air 11/16/24 17:43 Temperature 98.1 F 11/17/24 14:00 Pulse Rate 73 11/17/24 14:00 Respiratory Rate 16 11/17/24 14:00 Blood Pressure 115/71 11/17/24 14:00 Pulse Oximetry 95 11/17/24 14:00 Oxygen Delivery Room Air 11/17/24 09:50 <Blank Yin PA-C - Last Filed: 11/16/24 19:18> Vital Signs Temperature 97.6 F 11/16/24 17:43 Pulse Rate 86 11/16/24 17:43 Respiratory Rate 18 11/16/24 17:43 Blood Pressure 108/67 11/16/24 17:43 Pulse Oximetry 98 11/16/24 17:43 Oxygen Delivery Room Air 11/16/24 17:43 Temperature 98.1 F 11/17/24 14:00 Pulse Rate 73 11/17/24 14:00 Respiratory Rate 16 11/17/24 14:00 Blood Pressure 115/71 11/17/24 14:00 Pulse Oximetry 95 11/17/24 14:00 Oxygen Delivery Room Air 11/17/24 09:50 <Jessica Barrientos MD - Last Filed: 11/17/24 18:02> Medical Decision Making MDM Narrative Medical decision making narrative: Patient presents to the emergency department for known pneumonia. He was seen in the ER for this last night and signed out AMA. Returns for further care. He is afebrile and nontoxic appearing. His vitals are stable. CBC with leukocytosis to 12.5. Metabolic panel with elevation of blood glucose to 333. Lactic acid is not elevated. CT scan performed last night showing extensive necrotizing pneumonia in the right upper lobe. Patient will be admitted for further management with IV antibiotics <Blank Yin PA-C - Last Filed: 11/16/24 19:18> Differential Diagnosis Differential Diagnosis: Pneumonia, sepsis, dehydration <Blank Yin PA-C - Last Filed: 11/16/24 19:18> Vital Signs Vital Signs: Vital Signs Temperature 97.6 F 11/16/24 17:43 Pulse Rate 86 11/16/24 17:43 Respiratory Rate 18 11/16/24 17:43 Blood Pressure 108/67 11/16/24 17:43 Pulse Oximetry 98 11/16/24 17:43 Oxygen Delivery Room Air 11/16/24 17:43 Temperature 98.1 F 11/17/24 14:00 Pulse Rate 73 11/17/24 14:00 Respiratory Rate 16 11/17/24 14:00 Blood Pressure 115/71 11/17/24 14:00 Pulse Oximetry 95 11/17/24 14:00 Oxygen Delivery Room Air 11/17/24 09:50 <Merissa Raknin, SECURITY GUARD SUPERVISOR - Last Filed: 11/16/24 17:57> Vital Signs Temperature 97.6 F 11/16/24 17:43 Pulse Rate 86 11/16/24 17:43 Respiratory Rate 18 11/16/24 17:43 Blood Pressure 108/67 11/16/24 17:43 Pulse Oximetry 98 11/16/24 17:43 Oxygen Delivery Room Air 11/16/24 17:43 Temperature 98.1 F 11/17/24 14:00 Pulse Rate 73 11/17/24 14:00 Respiratory Rate 16 11/17/24 14:00 Blood Pressure 115/71 11/17/24 14:00 Pulse Oximetry 95 11/17/24 14:00 Oxygen Delivery Room Air 11/17/24 09:50 <Blank Yin PA-C - Last Filed: 11/16/24 19:18> Vital Signs Temperature 97.6 F 11/16/24 17:43 Pulse Rate 86 11/16/24 17:43 Respiratory Rate 18 11/16/24 17:43 Blood Pressure 108/67 11/16/24 17:43 Pulse Oximetry 98 11/16/24 17:43 Oxygen Delivery Room Air 11/16/24 17:43 Temperature 98.1 F 11/17/24 14:00 Pulse Rate 73 11/17/24 14:00 Respiratory Rate 16 11/17/24 14:00 Blood Pressure 115/71 11/17/24 14:00 Pulse Oximetry 95 11/17/24 14:00 Oxygen Delivery Room Air 11/17/24 09:50 <Jessica Barrientos MD - Last Filed: 11/17/24 18:02> Lab Data Lab results reviewed: Yes I reviewed the patient's lab results. <Blank Yin PA-C - Last Filed: 11/16/24 19:18> Result diagrams: 11/17/24 07:41 11/17/24 05:07 <Mersisa Rankin APRN - Last Filed: 11/16/24 17:57> Labs: Lab Results 11/16/24 11/16/24 Range/Units 18:05 18:48 WBC 12.5 H (4.5-10.0) K/mm3 RBC 3.80 L (4.6-6.20) M/mm3 Hgb 10.5 L (14.0-18.0) g/dL Hct 33.0 L (42.0-52.0) % MCV 86.8 (80-100) fl MCH 27.6 (26-34) pg MCHC 31.8 L (32-36) g/dl RDW 12.8 (11.5-14.5) % Plt Count 440 H (150-375) k/mm3 MPV 8.3 (7.4-10.4) fl Immature Gran % (Auto) 0.6 H (0-0.5) % Neut % (Auto) 81.0 H (45.5-73.1) % Lymph % (Auto) 8.5 L (18.3-44.2) % Arroyo % (Auto) 9.1 H (2.6-8.5) % Eos % (Auto) 0.6 (0-4.4) % Baso % (Auto) 0.2 (0.2-1.2) % Lymph # (Auto) 1.06 (0.9-3.2) K/mm3 Arroyo # (Auto) 1.1 H (0.1-0.6) K/mm3 Eos # (Auto) 0.1 (0-0.3) K/mm3 Baso # (Auto) 0.0 (0.0-0.1) K/mm3 Abs Immat Gran (auto) 0.07 H (0.00-0.031) K/mm3 Absolute Neuts (auto) 10.2 H (1.3-6.7) K/mm3 Absolute Nucleated RBC 0.000 (0.0-0.012) K/mm3 Nucleated RBC % 0.0 (0.0-0.2) % PT 14.5 (11.1-14.7) Seconds INR 1.1 APTT 35.3 (22.3-36.8) Seconds Sodium 133 L (137-145) mmol/L Potassium 3.7 (3.4-5.0) mmol/L Chloride 98 (98-107) mmol/L Carbon Dioxide 24 (22-30) mmol/L Anion Gap 11 (4-12) mmol/L BUN 9 (9-20) mg/dL Creatinine 0.48 L (0.7-1.3) mg/dL Estim Creat Clear Calc 146 ml/min Estimated GFR > 60 (59 - ) Glucose 333 H (65-110) mg/dL Lactic Acid 0.7 (0.7-2.0) mmol/L Calcium 8.6 (8.4-10.2) mg/dL Magnesium 2.1 (1.6-2.3) mg/dL Total Bilirubin 0.3 (0.2-1.3) mg/dL AST 23 (17-59) U/L ALT 13 (6-50) U/L Alkaline Phosphatase 86 (38-126) U/L Troponin I < 0.012 (0.000-0.034) ng/mL C-Reactive Protein 22.8 H (<1.0) mg/dL Total Protein 7.0 (6.3-8.2) g/dL Albumin 3.3 L (3.5-5.1) g/dL <Merissa Rankin, SECURITY GUARD SUPERVISOR - Last Filed: 11/16/24 17:57> Lab Results 11/16/24 11/16/24 Range/Units 18:05 18:48 WBC 12.5 H (4.5-10.0) K/mm3 RBC 3.80 L (4.6-6.20) M/mm3 Hgb 10.5 L (14.0-18.0) g/dL Hct 33.0 L (42.0-52.0) % MCV 86.8 (80-100) fl MCH 27.6 (26-34) pg MCHC 31.8 L (32-36) g/dl RDW 12.8 (11.5-14.5) % Plt Count 440 H (150-375) k/mm3 MPV 8.3 (7.4-10.4) fl Immature Gran % (Auto) 0.6 H (0-0.5) % Neut % (Auto) 81.0 H (45.5-73.1) % Lymph % (Auto) 8.5 L (18.3-44.2) % Arroyo % (Auto) 9.1 H (2.6-8.5) % Eos % (Auto) 0.6 (0-4.4) % Baso % (Auto) 0.2 (0.2-1.2) % Lymph # (Auto) 1.06 (0.9-3.2) K/mm3 Arroyo # (Auto) 1.1 H (0.1-0.6) K/mm3 Eos # (Auto) 0.1 (0-0.3) K/mm3 Baso # (Auto) 0.0 (0.0-0.1) K/mm3 Abs Immat Gran (auto) 0.07 H (0.00-0.031) K/mm3 Absolute Neuts (auto) 10.2 H (1.3-6.7) K/mm3 Absolute Nucleated RBC 0.000 (0.0-0.012) K/mm3 Nucleated RBC % 0.0 (0.0-0.2) % PT 14.5 (11.1-14.7) Seconds INR 1.1 APTT 35.3 (22.3-36.8) Seconds Sodium 133 L (137-145) mmol/L Potassium 3.7 (3.4-5.0) mmol/L Chloride 98 (98-107) mmol/L Carbon Dioxide 24 (22-30) mmol/L Anion Gap 11 (4-12) mmol/L BUN 9 (9-20) mg/dL Creatinine 0.48 L (0.7-1.3) mg/dL Estim Creat Clear Calc 146 ml/min Estimated GFR > 60 (59 - ) Glucose 333 H (65-110) mg/dL Lactic Acid 0.7 (0.7-2.0) mmol/L Calcium 8.6 (8.4-10.2) mg/dL Magnesium 2.1 (1.6-2.3) mg/dL Total Bilirubin 0.3 (0.2-1.3) mg/dL AST 23 (17-59) U/L ALT 13 (6-50) U/L Alkaline Phosphatase 86 (38-126) U/L Troponin I < 0.012 (0.000-0.034) ng/mL C-Reactive Protein 22.8 H (<1.0) mg/dL Total Protein 7.0 (6.3-8.2) g/dL Albumin 3.3 L (3.5-5.1) g/dL <Blank Yin PA-C - Last Filed: 11/16/24 19:18> Lab Results 11/16/24 11/16/24 Range/Units 18:05 18:48 WBC 12.5 H (4.5-10.0) K/mm3 RBC 3.80 L (4.6-6.20) M/mm3 Hgb 10.5 L (14.0-18.0) g/dL Hct 33.0 L (42.0-52.0) % MCV 86.8 (80-100) fl MCH 27.6 (26-34) pg MCHC 31.8 L (32-36) g/dl RDW 12.8 (11.5-14.5) % Plt Count 440 H (150-375) k/mm3 MPV 8.3 (7.4-10.4) fl Immature Gran % (Auto) 0.6 H (0-0.5) % Neut % (Auto) 81.0 H (45.5-73.1) % Lymph % (Auto) 8.5 L (18.3-44.2) % Arroyo % (Auto) 9.1 H (2.6-8.5) % Eos % (Auto) 0.6 (0-4.4) % Baso % (Auto) 0.2 (0.2-1.2) % Lymph # (Auto) 1.06 (0.9-3.2) K/mm3 Arroyo # (Auto) 1.1 H (0.1-0.6) K/mm3 Eos # (Auto) 0.1 (0-0.3) K/mm3 Baso # (Auto) 0.0 (0.0-0.1) K/mm3 Abs Immat Gran (auto) 0.07 H (0.00-0.031) K/mm3 Absolute Neuts (auto) 10.2 H (1.3-6.7) K/mm3 Absolute Nucleated RBC 0.000 (0.0-0.012) K/mm3 Nucleated RBC % 0.0 (0.0-0.2) % PT 14.5 (11.1-14.7) Seconds INR 1.1 APTT 35.3 (22.3-36.8) Seconds Sodium 133 L (137-145) mmol/L Potassium 3.7 (3.4-5.0) mmol/L Chloride 98 (98-107) mmol/L Carbon Dioxide 24 (22-30) mmol/L Anion Gap 11 (4-12) mmol/L BUN 9 (9-20) mg/dL Creatinine 0.48 L (0.7-1.3) mg/dL Estim Creat Clear Calc 146 ml/min Estimated GFR > 60 (59 - ) Glucose 333 H (65-110) mg/dL Lactic Acid 0.7 (0.7-2.0) mmol/L Calcium 8.6 (8.4-10.2) mg/dL Magnesium 2.1 (1.6-2.3) mg/dL Total Bilirubin 0.3 (0.2-1.3) mg/dL AST 23 (17-59) U/L ALT 13 (6-50) U/L Alkaline Phosphatase 86 (38-126) U/L Troponin I < 0.012 (0.000-0.034) ng/mL C-Reactive Protein 22.8 H (<1.0) mg/dL Total Protein 7.0 (6.3-8.2) g/dL Albumin 3.3 L (3.5-5.1) g/dL <Jessica Barrientos MD - Last Filed: 11/17/24 18:02> Imaging Data Radiologist's impression: CT Scan of the Chest with Contrast: (performed at his visit last night) Technique: Contiguous sections were acquired throughout the chest after intravenous administration of 100 cc of Omnipaque 350. Dose reduction technique was used on this scan by utilizing automated exposure control and iterative reconstruction technique. The dose-length product (DLP) was 286.47 mGy-cm. Findings: Right hilar lymphadenopathy present, measuring up to 2.3 cm in diameter. There is no filling defect in the pulmonary arterial tree to suggest pulmonary embolus. There is no evidence of aortic dissection or aneurysm. No pericardial effusion. Small right pleural effusion present. No left pleural effusion. There is extensive consolidation in the lateral right upper lobe with areas of fluid and air within the consolidation, compatible with presumed chronic change and developing cavitation. Left lung clear. Images through the upper abdomen reveal no abnormalities. Impression: No evidence of pulmonary embolus, aortic dissection, or aortic aneurysm. Extensive probable necrotizing pneumonia in the lateral right upper lobe. Underlying neoplasm felt less likely, though not completely excluded. Right hilar lymphadenopathy, presumably reactive. Small right pleural effusion. <Blank Yin PA-C - Last Filed: 11/16/24 19:18> Critical Care Time Critical Care Time Critical Care Time: No <Blank Yin PA-C - Last Filed: 11/16/24 19:18> Discharge Plan Discharge Clinical Impression: Necrotizing pneumonia <Merissa Rankin APRN - Last Filed: 11/16/24 17:57> Patient Disposition: Still a Patient <Merissa Rankin APRN - Last Filed: 11/16/24 17:57> Condition: Serious <Merissa Rankin APRN - Last Filed: 11/16/24 17:57>
--- OUTSIDE RECORDS SUMMARY | 2024-11-16 18:12 | XMS_ITS | Clinical Summary ---
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
--- OUTSIDE RECORDS SUMMARY | 2024-11-16 18:12 | XMS_ITS | Referral Summary ---
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
--- OUTSIDE RECORDS SUMMARY | 2024-11-16 18:12 | XMS_ITS | Clinical Summary ---
Author Organization [facility] Address [address] [address] Phone Care Team Providers Care Early Childhood Teacher Assistant Name Role Phone Rony Mckenzie MD Primary Care Provider [phone] Allergies Active Allergy Reactions Criticality Noted Date [...] Visit [facility] [address] [place] [address] Jordon Echeverria MD [address] [place] [address] Health Maintenance Due Date Last Done Comments [...] to complete this topic Insurance MEDICAID AETNA [facility] Care Teams Early Childhood Teacher Assistant Relationship Specialty Start Date End Date Rony Mckenzie MD [address] [place] [address] PCP - General Internal Medicine 12/10/22
[2024-11-16 18:13] LABS: Basophils Percent Auto 0.2 % (0.2-1.2); Eosinophils Absolute Auto 0.1 K/mm3 (0-0.3); Eosinophils Percent Auto 0.6 % (0-4.4); Hemoglobin 10.5 g/dL (14.0-18.0); Immature Granulocyte Absolute 0.07 K/mm3 (0.00-0.031); Immature Granulocyte Percent A 0.6 % (0-0.5); Lymphocytes Absolute Auto 1.06 K/mm3 (0.9-3.2); Lymphocytes Percent Auto 8.5 % (18.3-44.2); Mean Corpuscular HGB Conc 31.8 g/dl (32-36); Mean Corpuscular Hemoglobin 27.6 pg (26-34); Mean Corpuscular Volume 86.8 fl (80-100); Mean Platelet Volume 8.3 fl (7.4-10.4); Monocytes Absolute Auto 1.1 K/mm3 (0.1-0.6); Monocytes Percent Auto 9.1 % (2.6-8.5); Neutrophils Absolute Auto 10.2 K/mm3 (1.3-6.7); Platelet Count Result 440 k/mm3 (150-375); Red Cell Distribution Width 12.8 % (11.5-14.5); White Blood Count 12.5 K/mm3 (4.5-10.0)
[2024-11-16 18:22] LABS: Alanine Aminotransferase 13 U/L (6-50); Albumin Level 3.3 g/dL (3.5-5.1); Alkaline Phosphatase 86 U/L (38-126); Anion Gap 11 mmol/L (4-12); Aspartate Amino Transferase 23 U/L (17-59); Bilirubin,Total 0.3 mg/dL (0.2-1.3); Blood Urea Nitrogen 9 mg/dL (9-20); Calcium 8.6 mg/dL (8.4-10.2); Carbon Dioxide 24 mmol/L (22-30); Chloride 98 mmol/L (98-107); Estimated CRCL calculation 146 ml/min; Estimated Glomerular Filt Rate > 60; Glucose 333 mg/dL (65-110); Magnesium 2.1 mg/dL (1.6-2.3); Potassium 3.7 mmol/L (3.4-5.0); Sodium 133 mmol/L (137-145)
[2024-11-16 18:33] LABS: Troponin I < 0.012 ng/mL (0.000-0.034)
[2024-11-16 18:46] LABS: INR 1.1; Prothrombin Time 14.5 Seconds (11.1-14.7)
[2024-11-16 18:47] LABS: Partial Thromboplastin Time 35.3 Seconds (22.3-36.8)
[2024-11-16] MEDS: SODIUM CHLORIDE 0.9% IV 1,000 ML 999 ML IV CONT (18:53)
[2024-11-16 19:05] LABS: Lactic Acid Reflex 0.7 mmol/L (0.7-2.0)
[2024-11-16 19:06] LABS: CRP 22.8 mg/dL (<1.0)
[2024-11-16] MEDS: metroNIDAZOLE 500 MG/ISO 100ML 500 MG/100 ML BAG 100 MG IVPB (20:03)
[2024-11-16] MEDS: KETOROLAC 15 MG/ML VIAL (*BKC) IV PUSH (20:03)
[2024-11-16] MEDS: VANCOMYCIN 1,750 MG/NS 500 ML 1,750 MG/500 ML BAG 250 MG IVPB (20:49)
--- NOTE | 2024-11-16 21:13 | ADMGEN ---
This patient, Jared Meraz, was admitted to Medical Room 349-01. Patient/family oriented to hospital policies and general routines including ID bracelet, bed and alarms, visiting hours, pain management, procedures, bathroom and other care routines, personal items, smoking policy, room service/diet, and visiting hours. Information on how to activate the Rapid Response Team has been discussed. Patient/Family are encouraged to report perceived risks to care and to ask questions if they do not understand what they are told or what they should do.
[2024-11-16 22:20] LABS: MRSA (PCR) NOT DETECTED (NOT DETECTE)
[2024-11-17] VITALS (12 sets, daily range): BP systolic 115–125; BP diastolic 70–87; PULSE 70–90; RESP 16–24; TEMP 36.4–37; O2SAT 94–98
[2024-11-17 01:14] LABS: Glucose Point of Care 190 mg/dl (65-105)
[2024-11-17 05:30] LABS: Estimated CRCL calculation 179 ml/min; Estimated Glomerular Filt Rate > 60
[2024-11-17] MEDS: metroNIDAZOLE 500 MG/ISO 100ML 500 MG/100 ML BAG 100 MG IVPB ×3 (06:12→21:36)
--- NOTE | 2024-11-17 07:14 | PM.IMHP ---
H&P: HPI History of Present Illness Date/Time: 11/17/24 07:14 Chief Complaint: Necrotizing pneumonia previously left AMA Narrative: 49-year-old male with past medical history of bipolar disorder, 39 pack per year smoking history with continued active tobacco use, essential hypertension and type 2 diabetes mellitus on oral medications who presented to the ER on the with complaints of right chest pain and flank pain worse with coughing. Patient reports he has a chronic smoker's cough is been going on for quite some time. However he developed right side and flank pain in the lower rib cage that is worse with coughing over the last several weeks. The patient was breathing 35-40 times a minute in the ER on the and CT had been obtained but the patient did not wait for CT results. He did receive a dose of Rocephin and azithromycin but refused to stay for the CT results. CT returned with a cavitary lesion verses abscess of the right upper lobe with surrounding airspace opacity measuring 3.3 x 6.6 x 5.5 cm. Differential including cavitary pneumonia including possible tuberculosis less likely cavitary neoplasm. On further questioning the patient does report what seems like weight loss but he is nonspecific with his symptoms. He denies any changes in his appetite. He has not been having any fevers or chills. The patient left AMA. After CT results had returned the ER physician was able to reach the patient around 08:00 and encourage the patient come back to the ER. He reports chronic wheezing. He does not feel like his breathing is any worse than is usual. Part of white left the ER against medical advice was because he felt the nicotine patch was not helping him. The patient reports that he checks his glucose is from time to time. He has not checked his glucoses recently to know if he is having any hyperglycemia. Glucoses in the ER were in the low 200s. Review of Systems Review of Systems: 12 point review of systems was attempted but extremely limited due to patient being a poor historian despite being completely alert and oriented PMFSH Past Medical History Medical History (Updated 11/17/24 @ 07:53 by Abril Joshi DO) Bipolar disorder COPD (chronic obstructive pulmonary disease) Hyperlipidemia Anxiety Depression Hypertension Epilepsy Surgical History Surgical History (Updated 11/17/24 @ 07:31 by Abril Joshi DO) History of spinal surgery Family History Family History (Updated 11/17/24 @ 07:33 by Abril Joshi DO) Other Unknown family medical history Social History Social History (Updated 11/17/24 @ 07:35 by Abril Joshi DO) Social History: The patient is and lives with his significant other Wanda. He has 1 daughter. He has smoked approximately 1.5 packs of cigarettes per day and started smoking at the age of 13. He denies any history of heavy alcohol use. 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 Code status: Full code Surrogate decision maker: His daughter or his significant other Wanda Smoking packs per day: 1.5 Smoking cigarettes per day: 30.0 Years smoked: 36 Smoking pack-years: 54.00 Smoking status: Current every day smoker Alcohol intake: former Substance use: never Do You Feel Safe in your Home?: Yes Lack of Transportation: No Lack of Food: Never True Current Housing: I Have Housing Concerned About Future Housing: No Difficulty Paying Gas/Electric Bills: No Difficulty Paying for Meds: No Currently Unemployed: No Education: Grade School Difficulty w/ Childcare or Family Care: No Spiritual care concerns: No Meds Home Medications and Allergies Home Medications ?Medication ?Instructions ?Recorded ?Confirmed ?Type amlodipine 10 mg tablet 10 mg PO DAILY 12/22/23 11/16/24 History aripiprazole 15 mg tablet 15 mg PO DAILY 12/22/23 11/16/24 History benztropine 1 mg tablet 1 mg PO DAILY 12/22/23 11/16/24 History gabapentin 300 mg capsule 300 mg PO DAILY 12/22/23 11/16/24 History ibuprofen 800 mg tablet 800 mg PO DAILY 12/22/23 11/16/24 History losartan 100 mg tablet 100 mg PO DAILY 12/22/23 11/16/24 History metformin 500 mg tablet,extended 1,000 mg PO BID 12/22/23 11/16/24 History release 24 hr montelukast 10 mg tablet 10 mg PO DAILY 12/22/23 11/16/24 History propranolol 20 mg tablet 20 mg PO DAILY 12/22/23 11/16/24 History rosuvastatin 10 mg tablet 20 mg PO DAILY 12/22/23 11/16/24 History divalproex 250 mg tablet,delayed 250 mg PO Q8H 11/16/24 11/16/24 History release (Depakote) empagliflozin 25 mg tablet 25 mg PO DAILY 11/16/24 11/16/24 History (Jardiance) fluoxetine 40 mg capsule 40 mg PO DAILY 11/16/24 11/16/24 History levetiracetam 500 mg tablet 500 mg PO BID 11/16/24 11/16/24 History (Keppra) Allergies Allergy/AdvReac Type Severity Reaction Status Date / Time Penicillins Allergy Unknown Rash Verified 11/16/24 18:10 hydrocodone Allergy Rash Verified 11/16/24 18:10 Vital Signs Vital Signs - 24 hr 11/16/24 17:43 11/16/24 18:03 11/16/24 18:09 Temperature 97.6 F Pulse Rate 86 82 80 Respiratory Rate 18 31 H Blood Pressure 108/67 107/80 Pulse Oximetry 98 96 Oxygen Delivery Room Air 11/16/24 18:31 11/16/24 18:49 11/16/24 19:00 Temperature Pulse Rate 84 85 81 Respiratory Rate 37 H 35 H 31 H Blood Pressure 107/74 107/74 106/65 Pulse Oximetry 95 95 97 Oxygen Delivery 11/16/24 19:01 11/16/24 19:15 11/16/24 20:32 Temperature 98.4 F Pulse Rate 84 87 84 Respiratory Rate 38 H 42 H 26 H Blood Pressure 106/65 109/68 Pulse Oximetry 96 96 95 Oxygen Delivery 11/17/24 04:00 Temperature 97.6 F Pulse Rate 84 Respiratory Rate 24 H Blood Pressure 123/71 Pulse Oximetry 98 Oxygen Delivery Exam Narrative: Weight 74 kg BMI 25.6 Const: Other: No acute distress, appears much older than stated age, poor hygiene HENMT: Other: Poor dentition multiple broken and missing teeth with dental caries, head is normocephalic atraumatic, mucous membranes are dry Eyes: Other: Pupils are equal and reactive, no scleral icterus, positive conjunctival pallor Neck: Other: No JVD, no lymphadenopathy Resp: Other: Decreased breath sounds bilaterally, in both anterior and posterior crowley, no accessory sounds, no tachypnea Cardio: Other: Regular rate, regular rhythm, 2+ bilateral radial pedal pulses GI: Other: Soft, nontender, nondistended, positive bowel sounds Skin: Other: No jaundice, no pallor Neuro: Other: Alert oriented times 3, speech is clear, no facial asymmetry Extrem: Other: No cyanosis, no edema, equal strength bilateral upper and lower extremities Psych: Other: Odd affect, cooperative, avoids eye contact H&P: Results Labs Labs: Laboratory Tests 11/16/24 11/16/24 11/16/24 18:05 18:48 20:36 WBC 12.5 H RBC 3.80 L Hgb 10.5 L Hct 33.0 L MCV 86.8 MCH 27.6 MCHC 31.8 L RDW 12.8 Plt Count 440 H MPV 8.3 Immature Gran % (Auto) 0.6 H Neut % (Auto) 81.0 H Lymph % (Auto) 8.5 L [place] % (Auto) 9.1 H Eos % (Auto) 0.6 Baso % (Auto) 0.2 Lymph # (Auto) 1.06 [place] # (Auto) 1.1 H Eos # (Auto) 0.1 Baso # (Auto) 0.0 Abs Immat Gran (auto) 0.07 H Absolute Neuts (auto) 10.2 H Absolute Nucleated RBC 0.000 Nucleated RBC % 0.0 PT 14.5 INR 1.1 APTT 35.3 Sodium 133 L Potassium 3.7 Chloride 98 Carbon Dioxide 24 Anion Gap 11 BUN 9 Creatinine 0.48 L Estim Creat Clear Calc 146 Estimated GFR > 60 Glucose 333 H POC Capillary Glucose 190 H Lactic Acid 0.7 Calcium 8.6 Magnesium 2.1 Total Bilirubin 0.3 AST 23 ALT 13 Alkaline Phosphatase 86 Troponin I < 0.012 C-Reactive Protein 22.8 H Total Protein 7.0 Albumin 3.3 L Nasal MRSA (PCR) 11/16/24 11/17/24 20:42 05:07 WBC RBC Hgb Hct MCV MCH MCHC RDW Plt Count MPV Immature Gran % (Auto) Neut % (Auto) Lymph % (Auto) [place] % (Auto) Eos % (Auto) Baso % (Auto) Lymph # (Auto) [place] # (Auto) Eos # (Auto) Baso # (Auto) Abs Immat Gran (auto) Absolute Neuts (auto) Absolute Nucleated RBC Nucleated RBC % PT INR APTT Sodium Potassium Chloride Carbon Dioxide Anion Gap BUN Creatinine 0.38 L Estim Creat Clear Calc 179 Estimated GFR > 60 Glucose POC Capillary Glucose Lactic Acid Calcium Magnesium Total Bilirubin AST ALT Alkaline Phosphatase Troponin I C-Reactive Protein Total Protein Albumin Nasal MRSA (PCR) Not detected Impressions Chest X-Ray 11/16/24 19:16 IMPRESSION: Redemonstration of necrotizing pneumonia, increased in size from previous examination, now with a right-sided pleural effusion. EKG: Normal sinus rhythm pulmonary disease pattern QTC 455 cardiology interpretation pending CTA of the chest from prior visit: CT Scan of the Chest with Contrast: Technique: Contiguous sections were acquired throughout the chest after intravenous administration of 100 cc of Omnipaque 350. Dose reduction technique was used on this scan by utilizing automated exposure control and iterative reconstruction technique. The dose-length product (DLP) was 286.47 mGy-cm. Findings: Right hilar lymphadenopathy present, measuring up to 2.3 cm in diameter. There is no filling defect in the pulmonary arterial tree to suggest pulmonary embolus. There is no evidence of aortic dissection or aneurysm. No pericardial effusion. Small right pleural effusion present. No left pleural effusion. There is extensive consolidation in the lateral right upper lobe with areas of fluid and air within the consolidation, compatible with presumed chronic change and developing cavitation. Left lung clear. Images through the upper abdomen reveal no abnormalities. Impression: No evidence of pulmonary embolus, aortic dissection, or aortic aneurysm. Extensive probable necrotizing pneumonia in the lateral right upper lobe. Underlying neoplasm felt less likely, though not completely excluded. Right hilar lymphadenopathy, presumably reactive. Small right pleural effusion. All imaging and EKGs personally reviewed and interpreted. And unless stated otherwise agree with radiologic and cardiology interpretation. Assessment and Plan Assessment and plan (1) Necrotizing pneumonia: Code(s): J85.0 - Gangrene and necrosis of lung Status: Acute (2) Continuous tobacco abuse: Code(s): Z72.0 - Tobacco use Status: Acute (3) COPD (chronic obstructive pulmonary disease): Qualifiers: COPD type: COPD with acute lower respiratory infection Qualified Code(s): J44.0 - Chronic obstructive pulmonary disease with (acute) lower respiratory infection Code(s): J44.9 - Chronic obstructive pulmonary disease, unspecified Status: Acute Plan Patient has cavitary lesions suspicious for necrotizing pneumonia verses mass with necrosis with necrotizing pneumonia being more likely. The patient does endorse recent weight loss. He denies any hemoptysis or known ill contacts. He denies immunocompromised or exposures to communicable disease. Will check QuantiFERON gold. If the patient develops productive cough will send sputum for culture. Pulmonology has been consulted and will await further recommendations. Patient been started empiric antibiotic therapy with Rocephin, Flagyl and vancomycin. Blood cultures are pending. Will repeat CBC. Will place patient on scheduled DuoNebs. Smoking cessation was encouraged. Will provide nicotine patch and nicotine gum to help with nicotine withdrawal symptoms. The patient is not interested in quitting smoking at this time. Patient has been admitted as observation status. Quality VTE Prophylaxis VTE prophylaxis: pharmacologic ordered (Lovenox 40 mg subQ daily.) Hospitalist [facility] Advance Care Plan I have confirmed that the patient's Advanced Care Plan is present, code status is documented, or surrogate decision maker is listed in patient medical record.: Yes Medication Reconciliation I have utilized all available resources to obtain, update and review the patients current medications (includes all prescriptions, OTC, herbals, cannabis, and nutritional supplements).: Yes
[2024-11-17 07:52] LABS: Basophils Percent Auto 0.3 % (0.2-1.2); Eosinophils Absolute Auto 0.1 K/mm3 (0-0.3); Eosinophils Percent Auto 0.9 % (0-4.4); Hemoglobin 10.2 g/dL (14.0-18.0); Immature Granulocyte Absolute 0.06 K/mm3 (0.00-0.031); Immature Granulocyte Percent A 0.5 % (0-0.5); Lymphocytes Absolute Auto 1.31 K/mm3 (0.9-3.2); Lymphocytes Percent Auto 11.6 % (18.3-44.2); Mean Corpuscular HGB Conc 31.9 g/dl (32-36); Mean Corpuscular Hemoglobin 27.5 pg (26-34); Mean Corpuscular Volume 86.3 fl (80-100); Mean Platelet Volume 8.3 fl (7.4-10.4); Monocytes Absolute Auto 0.9 K/mm3 (0.1-0.6); Monocytes Percent Auto 8.3 % (2.6-8.5); Neutrophils Absolute Auto 8.9 K/mm3 (1.3-6.7); Neutrophils Percent Auto 78.4 % (45.5-73.1); Platelet Count Result 401 k/mm3 (150-375); Red Blood Count 3.71 M/mm3 (4.6-6.20); Red Cell Distribution Width 12.7 % (11.5-14.5); White Blood Count 11.3 K/mm3 (4.5-10.0)
[2024-11-17] MEDS: IPRATROPIUM 0.5 MG/ALBUTEROL SULFATE 2.5 MG AMPUL.NEB 3 ML INHALATION ×2 (09:05→20:00)
[2024-11-17 09:07] LABS: Glucose Point of Care 251 mg/dl (65-105)
[2024-11-17 09:07] LABS: Glucose Point of Care > 500 mg/dl (65-105)
[2024-11-17 09:20] LABS: Alanine Aminotransferase 7 U/L (6-50); Albumin Level 2.4 g/dL (3.5-5.1); Alkaline Phosphatase 66 U/L (38-126); Anion Gap 9 mmol/L (4-12); Aspartate Amino Transferase 14 U/L (17-59); Bilirubin,Total 0.2 mg/dL (0.2-1.3); Blood Urea Nitrogen 6 mg/dL (9-20); Calcium 7.8 mg/dL (8.4-10.2); Carbon Dioxide 21 mmol/L (22-30); Chloride 102 mmol/L (98-107); Estimated CRCL calculation 164 ml/min; Estimated Glomerular Filt Rate > 60; Glucose 242 mg/dL (65-110); Potassium 3.4 mmol/L (3.4-5.0); Sodium 132 mmol/L (137-145)
[2024-11-17] MEDS: VANCOMYCIN 1,250 MG/NS 250 ML 1,250 MG/250 ML BAG 166.67 MG IVPB ×2 (09:48→21:20)
[2024-11-17] MEDS: metFORMIN HCL XR 500 MG TAB.SR.24H 1000 MG PO ×2 (09:49→17:44)
[2024-11-17] MEDS: levETIRAcetam 500 MG TABLET PO ×2 (09:49→21:23)
[2024-11-17] MEDS: DIVALPROEX SODIUM DR 250 MG TABEC PO ×3 (09:49→21:23)
[2024-11-17] MEDS: ENOXAPARIN 40 MG/0.4 ML SYRINGE SUB-Q (09:50)
[2024-11-17] MEDS: NICOTINE (*PBKC) 21 MG PATCH 1 PATCH TRANSDERM (09:50)
[2024-11-17] MEDS: NICOTINE (*PBKC) 2 MG GUM PO (09:51)
[2024-11-17] MEDS: INSULIN ASPART (*BKC) 100 UNITS/ML SUB-Q (09:54)
--- NOTE | 2024-11-17 10:01 | P.PNIM_ITS ---
Progress Note: A&P Assessment and Plan (1) Necrotizing pneumonia: Code(s): J85.0 - Gangrene and necrosis of lung Status: Acute Assessment and Plan: * Patient has cavitary lesions suspicious for necrotizing pneumonia verses mass with necrosis with necrotizing pneumonia being more likely. * Chest X-ray showed:FINDINGS Redemonstration of a large right-sided infiltrate with air-fluid levels increased in size from prior examination. Measuring 8.4 x 5.9 cm (cranial to caudal and medial to lateral dimension). Interval development of a moderate right-sided pleural effusion, not present on the previous examination. The cardiomediastinal silhouette is unremarkable. The left hemithorax is clear. IMPRESSION: Redemonstration of necrotizing pneumonia, increased in size from previous examination, now with a right-sided pleural effusion. * The patient does endorse recent weight loss. He denies any hemoptysis or known ill contacts. * Ceftriaxone 1 gram IVPB daily, Metronidazole 500 mg IVPB q8, and Vancomycin 1,250 mg IVPB q12. * Duonebs q6. * Sa02 95% RA. * Respiratory panel negative. * Urine drug screen negative. * QuantiFERON gold- pending. * Pulmonology consulted. (2) COPD (chronic obstructive pulmonary disease): Qualifiers: COPD type: COPD with acute lower respiratory infection Qualified Code(s): J44.0 - Chronic obstructive pulmonary disease with (acute) lower respiratory infection Code(s): J44.9 - Chronic obstructive pulmonary disease, unspecified Status: Acute Assessment and Plan: * Duoneb q6. * Montelukast 10 mg PO HS. * Sa02 95% RA. * Pulmonology consulted. (3) Continuous tobacco abuse: Code(s): Z72.0 - Tobacco use Status: Acute Assessment and Plan: * Nicotine patch and nicotine gum to help with nicotine withdrawal symptoms. * The patient is not interested in quitting smoking at this time. * Smoking cessation encouraged. Subjective Date/time seen: 11/17/24 10:01 Interval history: Patient reports pain in the right side of his chest that is a 6, frequent, and sharp. Patient reports a dry cough and dyspnea on exertion. Patient denies chest pain, palpitations, shortness of breath at rest, headache, dizziness, nausea, or vomiting. Review of Systems Review of Systems: All systems reviewed & are unremarkable except as noted in HPI and below Exam Const: General: no acute distress and uncomfortable Resp: Effort & Inspection: normal respiratory effort Auscultation: diminished lung sounds Cardio: Rate: regular rate Rhythm: regular rhythm GI: GI Palp: Yes Soft to palpation Auscultation: normal bowel sounds Neuro: Speech: normal speech Extrem: General: no pedal edema Psych: Mental Status: mental status grossly normal Affect: normal affect Objective Data Vital Signs Vital Signs: Vital Signs - 24 hr 11/16/24 17:43 11/16/24 18:03 11/16/24 18:09 Temperature 97.6 F Pulse Rate 86 82 80 Respiratory Rate 18 31 H Blood Pressure 108/67 107/80 Pulse Oximetry 98 96 Oxygen Delivery Room Air 11/16/24 18:31 11/16/24 18:49 11/16/24 19:00 Temperature Pulse Rate 84 85 81 Respiratory Rate 37 H 35 H 31 H Blood Pressure 107/74 107/74 106/65 Pulse Oximetry 95 95 97 Oxygen Delivery 11/16/24 19:01 11/16/24 19:15 11/16/24 20:32 Temperature 98.4 F Pulse Rate 84 87 84 Respiratory Rate 38 H 42 H 26 H Blood Pressure 106/65 109/68 Pulse Oximetry 96 96 95 Oxygen Delivery 11/17/24 04:00 11/17/24 08:00 11/17/24 09:09 Temperature 97.6 F 98.4 F Pulse Rate 84 82 Respiratory Rate 24 H 18 Blood Pressure 123/71 115/70 Pulse Oximetry 98 97 96 Oxygen Delivery Room Air 11/17/24 09:09 Temperature Pulse Rate 80 Respiratory Rate 18 Blood Pressure Pulse Oximetry Oxygen Delivery Intake/Output Intake/Output: Intake & Output 11/14/24 11/15/24 11/16/24 11/17/24 23:59 23:59 23:59 23:59 Intake Total 1050 2680 Output Total 500 Balance 550 2680 Meds/Results Medications: Active Medications Generic Name Dose Route Start Last Admin Trade Name Freq PRN Reason Stop Dose Admin Acetaminophen 650 mg 11/17/24 07:50 Acetaminophen 325 Mg Tablet PO Q4H PRN Mild Pain (1-3) or Fever Albuterol/Ipratropium 3 ml 11/17/24 08:00 11/17/24 09:05 Ipratropium 0.5 Mg/Albuterol Sulfate 2.5 Mg Ampul.Neb 3 Ml INHALATION 3 ml Q6HRT KADEN Administration Amlodipine Besylate 10 mg 11/17/24 21:00 Amlodipine Besylate 10 Mg Tablet PO HS KADEN Aripiprazole 15 mg 11/17/24 21:00 Aripiprazole 5 Mg Tablet PO HS KADEN Benztropine Mesylate 1 mg 11/17/24 21:00 Benztropine Mesylate 1 Mg Tablet PO HS KADEN Dextrose 12.5 gm 11/17/24 07:28 Dextrose 50% 25 Gm/50 Ml Syringe IV PUSH PRN PRN Hypoglycemia Protocol Divalproex Sodium 250 mg 11/17/24 07:15 11/17/24 09:[address] 250 Mg Tabec PO 250 mg Q8HR KADEN Administration Empagliflozin 25 mg 11/17/24 21:00 Empagliflozin 25 Mg Tablet PO HS KADEN Enoxaparin Sodium 40 mg 11/17/24 09:00 11/17/24 09:50 Enoxaparin 40 Mg/0.4 Ml Syringe SUB-Q 40 mg DAILY KADEN Administration Fluoxetine HCl 40 mg 11/17/24 21:00 Fluoxetine Hcl 20 Mg Capsule PO HS KADEN Gabapentin 300 mg 11/17/24 21:00 Gabapentin 300 Mg Capsule PO HS KADEN Glucagon 1 mg 11/17/24 07:28 Glucagon For Inj 1 Mg Vial IM PRN PRN Hypoglycemia Protocol Glucose 15 gm 11/17/24 07:28 Glucose Oral Gel 15 Gm Of Glucse In 37.5 Gm Tube PO PRN PRN Hypoglycemia Protocol Ceftriaxone Sodium 1 gm in 50 mls @ 100 mls/hr 11/17/24 18:00 Rocephin 1 Gm/Ns 50 Ml IVPB Q24H KADEN Metronidazole 500 mg in 100 mls @ 100 mls/hr 11/17/24 06:00 11/17/24 06:12 Flagyl 500 Mg/Iso Soln 100 Ml IVPB 100 mls/hr Q8H KADEN Administration Vancomycin HCl 1,250 mg in 250 mls @ 166.667 mls/hr 11/17/24 09:00 11/17/24 09:48 Vancomycin 1,250 Mg/Ns 250 Ml IVPB 166.67 mls/hr Q12H KADEN Administration Dextrose 1,000 mls @ 100 mls/hr 11/17/24 07:28 Dextrose 5% 1,000 Ml IVPB PRN PRN Hypoglycemia Protocol Insulin Aspart 3 - 6 units 11/17/24 08:00 11/17/24 09:54 Insulin Aspart (*Bkc) 100 Units/Ml SUB-Q 4 units TIDWM KADEN Administration Protocol Ketorolac Tromethamine 15 mg 11/17/24 07:50 Ketorolac 15 Mg/Ml Vial (*Bkc) IV PUSH Q6H PRN Pain Rated 7-10 Levetiracetam 500 mg 11/17/24 09:00 11/17/24 09:49 Levetiracetam 500 Mg Tablet PO 500 mg Q12HR KADEN Administration Losartan Potassium 100 mg 11/17/24 21:00 Losartan Potassium 100 Mg Tablet PO HS [facility] Metformin HCl 1,000 mg 11/17/24 08:00 11/17/24 09:49 Metformin Hcl Xr 500 Mg Tab.Sr.24h PO 1,000 mg BIDWM KADEN Administration Montelukast Sodium 10 mg 11/17/24 21:00 Montelukast Sodium 10 Mg Tablet PO HS [facility] Nicotine 1 patch 11/17/24 09:00 11/17/24 09:50 Nicotine (*Pbkc) 21 Mg Patch TRANSDERM 1 patch DAILY KADEN Administration Nicotine Polacrilex 2 mg 11/17/24 07:52 11/17/24 09:51 Nicotine (*Pbkc) 2 Mg Gum PO 2 mg Q4H PRN Administration Nicotine Cravings Propranolol HCl 20 mg 11/17/24 21:00 Propranolol Hcl 20 Mg Tablet PO [facility] Rosuvastatin Calcium 20 mg 11/17/24 21:00 Rosuvastatin 10 Mg Tablet PO [facility] Radiology Results: ITS Impressions Chest X-Ray 11/16/24 19:16 IMPRESSION: Redemonstration of necrotizing pneumonia, increased in size from previous examination, now with a right-sided pleural effusion. Labs Labs: Laboratory Results - last 24 hr 11/16/24 11/16/24 11/16/24 18:05 18:48 20:36 WBC 12.5 H RBC 3.80 L Hgb 10.5 L Hct 33.0 L MCV 86.8 MCH 27.6 MCHC 31.8 L RDW 12.8 Plt Count 440 H MPV 8.3 Immature Gran % (Auto) 0.6 H Neut % (Auto) 81.0 H Lymph % (Auto) 8.5 L [place] % (Auto) 9.1 H Eos % (Auto) 0.6 Baso % (Auto) 0.2 Lymph # (Auto) 1.06 [place] # (Auto) 1.1 H Eos # (Auto) 0.1 Baso # (Auto) 0.0 Abs Immat Gran (auto) 0.07 H Absolute Neuts (auto) 10.2 H Absolute Nucleated RBC 0.000 Nucleated RBC % 0.0 PT 14.5 INR 1.1 APTT 35.3 Sodium 133 L Potassium 3.7 Chloride 98 Carbon Dioxide 24 Anion Gap 11 BUN 9 Creatinine 0.48 L Estim Creat Clear Calc 146 Estimated GFR > 60 Glucose 333 H POC Capillary Glucose 190 H Lactic Acid 0.7 Calcium 8.6 Magnesium 2.1 Total Bilirubin 0.3 AST 23 ALT 13 Alkaline Phosphatase 86 Troponin I < 0.012 C-Reactive Protein 22.8 H Total Protein 7.0 Albumin 3.3 L Nasal MRSA (PCR) 11/16/24 11/17/24 11/17/24 20:42 05:07 05:07 WBC RBC Hgb Hct MCV MCH MCHC RDW Plt Count MPV Immature Gran % (Auto) Neut % (Auto) Lymph % (Auto) [place] % (Auto) Eos % (Auto) Baso % (Auto) Lymph # (Auto) [place] # (Auto) Eos # (Auto) Baso # (Auto) Abs Immat Gran (auto) Absolute Neuts (auto) Absolute Nucleated RBC Nucleated RBC % PT INR APTT Sodium 132 L Potassium 3.4 Chloride 102 Carbon Dioxide 21 L Anion Gap 9 BUN 6 L Creatinine 0.38 L 0.42 L Estim Creat Clear Calc 179 Estimated GFR Glucose POC Capillary Glucose Lactic Acid Calcium Magnesium Total Bilirubin AST ALT Alkaline Phosphatase Troponin I C-Reactive Protein Total Protein Albumin Nasal MRSA (PCR) Not detected 11/17/24 11/17/24 11/17/24 05:07 05:07 07:41 WBC 11.3 H RBC 3.71 L Hgb 10.2 L Hct 32.0 L MCV 86.3 MCH 27.5 MCHC 31.9 L RDW 12.7 Plt Count 401 H MPV 8.3 Immature Gran % (Auto) 0.5 Neut % (Auto) 78.4 H Lymph % (Auto) 11.6 L [place] % (Auto) 8.3 Eos % (Auto) 0.9 Baso % (Auto) 0.3 Lymph # (Auto) 1.31 [place] # (Auto) 0.9 H Eos # (Auto) 0.1 Baso # (Auto) 0.0 Abs Immat Gran (auto) 0.06 H Absolute Neuts (auto) 8.9 H Absolute Nucleated RBC 0.000 Nucleated RBC % 0.0 PT INR APTT Sodium Potassium Chloride Carbon Dioxide Anion Gap BUN Creatinine Estim Creat Clear Calc 164 Estimated GFR > 60 > 60 Glucose 242 H POC Capillary Glucose Lactic Acid Calcium 7.8 L Magnesium Total Bilirubin 0.2 AST 14 L ALT 7 Alkaline Phosphatase 66 Troponin I C-Reactive Protein Total Protein 6.0 L Albumin 2.4 L Nasal MRSA (PCR) 11/17/24 11/17/24 08:44 08:47 WBC RBC Hgb Hct MCV MCH MCHC RDW Plt Count MPV Immature Gran % (Auto) Neut % (Auto) Lymph % (Auto) [place] % (Auto) Eos % (Auto) Baso % (Auto) Lymph # (Auto) [place] # (Auto) Eos # (Auto) Baso # (Auto) Abs Immat Gran (auto) Absolute Neuts (auto) Absolute Nucleated RBC Nucleated RBC % PT INR APTT Sodium Potassium Chloride Carbon Dioxide Anion Gap BUN Creatinine Estim Creat Clear Calc Estimated GFR Glucose POC Capillary Glucose > 500 H* 251 H Lactic Acid Calcium Magnesium Total Bilirubin AST ALT Alkaline Phosphatase Troponin I C-Reactive Protein Total Protein Albumin Nasal MRSA (PCR) Quality VTE Prophylaxis VTE prophylaxis: pharmacologic ordered (Lovenox 40 mg subQ daily.)
[2024-11-17 11:53] LABS: Glucose Point of Care 117 mg/dl (65-105)
[2024-11-17 13:48] LABS: Amphetamine Screen Urine Negative (Negative); Barbiturate Screen Urine Negative (Negative); Benzodiazepines Screen Urine Negative (Negative); Cannabinoid Screen Urine Negative (Negative); Cocaine Screen Urine Negative (Negative); Methadone Screen Urine Negative (Negative); Opiate Screen Urine Negative (Negative); Phencyclidine Screen Urine Negative (Negative)
[2024-11-17 17:51] LABS: Glucose Point of Care 186 mg/dl (65-105)
[2024-11-17] MEDS: PROPRANOLOL HCL 20 MG TABLET PO (21:21)
[2024-11-17] MEDS: ARIPiprazole 5 MG TABLET 15 MG PO (21:21)
[2024-11-17] MEDS: BENZTROPINE MESYLATE 1 MG TABLET PO (21:21)
[2024-11-17] MEDS: FLUoxetine HCL 20 MG CAPSULE 40 MG PO (21:22)
[2024-11-17] MEDS: ROSUVASTATIN 10 MG TABLET 20 MG PO (21:22)
[2024-11-17] MEDS: amLODIPine BESYLATE 10 MG TABLET PO (21:23)
[2024-11-17] MEDS: GABAPENTIN 300 MG CAPSULE PO (21:23)
[2024-11-17] MEDS: MONTELUKAST SODIUM 10 MG TABLET PO (21:23)
[2024-11-17] MEDS: EMPAGLIFLOZIN 25 MG TABLET PO (21:23)
[2024-11-17] MEDS: LOSARTAN POTASSIUM 100 MG TABLET PO (21:23)
[2024-11-18] VITALS (11 sets, daily range): BP systolic 108–128; BP diastolic 76–86; PULSE 69–89; RESP 14–22; TEMP 36.3–36.8; O2SAT 92–98
[2024-11-18] MEDS: INSULIN ASPART (*BKC) 100 UNITS/ML SUB-Q ×2 (00:24→17:35)
[2024-11-18 00:47] LABS: Glucose Point of Care 248 mg/dl (65-105)
--- NOTE | 2024-11-18 06:13 | PCRCNOTE ---
out of administration timeframe for 0200 breathing treatment, see next scheduled treatment.
[2024-11-18] MEDS: DIVALPROEX SODIUM DR 250 MG TABEC PO ×3 (06:22→21:42)
[2024-11-18] MEDS: metroNIDAZOLE 500 MG/ISO 100ML 500 MG/100 ML BAG 100 MG IVPB ×3 (06:24→21:45)
[2024-11-18] MEDS: IPRATROPIUM 0.5 MG/ALBUTEROL SULFATE 2.5 MG AMPUL.NEB 3 ML INHALATION ×2 (07:30→20:07)
[2024-11-18 08:05] LABS: Basophils Percent Auto 0.3 % (0.2-1.2); Eosinophils Absolute Auto 0.1 K/mm3 (0-0.3); Eosinophils Percent Auto 0.6 % (0-4.4); Hematocrit 32.5 % (42.0-52.0); Hemoglobin 10.5 g/dL (14.0-18.0); Immature Granulocyte Absolute 0.19 K/mm3 (0.00-0.031); Immature Granulocyte Percent A 1.6 % (0-0.5); Lymphocytes Absolute Auto 1.44 K/mm3 (0.9-3.2); Mean Corpuscular HGB Conc 32.3 g/dl (32-36); Mean Corpuscular Hemoglobin 27.7 pg (26-34); Mean Corpuscular Volume 85.8 fl (80-100); Mean Platelet Volume 8.1 fl (7.4-10.4); Monocytes Percent Auto 8.3 % (2.6-8.5); Neutrophils Absolute Auto 9.3 K/mm3 (1.3-6.7); Neutrophils Percent Auto 77.2 % (45.5-73.1); Platelet Count Result 417 k/mm3 (150-375); Red Blood Count 3.79 M/mm3 (4.6-6.20); Red Cell Distribution Width 12.9 % (11.5-14.5)
[2024-11-18 08:12] LABS: Alanine Aminotransferase 10 U/L (6-50); Alkaline Phosphatase 71 U/L (38-126); Anion Gap 11 mmol/L (4-12); Aspartate Amino Transferase 20 U/L (17-59); Bilirubin,Total 0.4 mg/dL (0.2-1.3); Blood Urea Nitrogen 4 mg/dL (9-20); Calcium 8.1 mg/dL (8.4-10.2); Carbon Dioxide 23 mmol/L (22-30); Chloride 101 mmol/L (98-107); Estimated CRCL calculation 179 ml/min; Estimated Glomerular Filt Rate > 60; Glucose 181 mg/dL (65-110); Potassium 3.5 mmol/L (3.4-5.0); Sodium 135 mmol/L (137-145)
[2024-11-18 08:20] LABS: Glucose Point of Care 189 mg/dl (65-105)
[2024-11-18 08:22] LABS: Vancomycin Trough 7.2 ug/mL (10.0-20.0)
[2024-11-18] MEDS: NICOTINE (*PBKC) 21 MG PATCH 1 PATCH TRANSDERM (09:41)
[2024-11-18] MEDS: VANCOMYCIN 1,500 MG/NS 500 ML 1,500 MG/500 ML BAG 250 MG IVPB ×2 (09:41→17:55)
[2024-11-18] MEDS: ENOXAPARIN 40 MG/0.4 ML SYRINGE SUB-Q (09:41)
[2024-11-18] MEDS: metFORMIN HCL XR 500 MG TAB.SR.24H 1000 MG PO ×2 (09:41→17:31)
[2024-11-18] MEDS: levETIRAcetam 500 MG TABLET PO ×2 (09:41→21:38)
[2024-11-18] MEDS: NICOTINE (*PBKC) 2 MG GUM PO (09:42)
[2024-11-18] MEDS: KETOROLAC 15 MG/ML VIAL (*BKC) IV PUSH (09:57)
--- NOTE | 2024-11-18 10:41 | P.PNIM_ITS ---
Progress Note: A&P Assessment and Plan (1) Necrotizing pneumonia: Code(s): J85.0 - Gangrene and necrosis of lung Status: Acute Assessment and Plan: * Patient has cavitary lesions suspicious for necrotizing pneumonia verses mass with necrosis with necrotizing pneumonia being more likely. * Chest X-ray showed:FINDINGS Remonstration of a large right-sided infiltrate with air-fluid levels increased in size from prior examination. Measuring 8.4 x 5.9 cm (cranial to caudal and medial to lateral dimension). Interval development of a moderate right-sided pleural effusion, not present on the previous examination. The cardiomediastinal silhouette is unremarkable. The left hemithorax is clear. IMPRESSION: Redemonstration of necrotizing pneumonia, increased in size from previous examination, now with a right-sided pleural effusion. * The patient does endorse recent weight loss. He denies any hemoptysis or known ill contacts. * Ceftriaxone 1 gram IVPB daily, Metronidazole 500 mg IVPB q8, and Vancomycin 1,250 mg IVPB q12. * Duonebs q6. * Sa02 95% RA. * Respiratory panel negative. * Urine drug screen negative. * QuantiFERON gold- pending. * Pulmonology consulted. * Chest X-ray: FINDINGS The cardiomediastinal silhouette is unremarkable. Interval increase in size of the focus of necrotizing pneumonia within the right upper lobe measuring 8.7 x 6.9 cm (compared with 8.4 x 5.9 cm on the previous study performed 2 days earlier). Interval increase in the size of the right-sided pleural effusion when compared with previous study performed 2 days earlier. The left hemithorax remains clear. IMPRESSION: Interval increase in size of the right-sided necrotizing pneumonia with interval increase in the right-sided pleural effusion, when compared with previous examination performed approximately 2 days earlier. * Echocardiogram ordered. * WBC 12.0. (2) COPD (chronic obstructive pulmonary disease): Qualifiers: COPD type: COPD with acute lower respiratory infection Qualified Code(s): J44.0 - Chronic obstructive pulmonary disease with (acute) lower respiratory infection Code(s): J44.9 - Chronic obstructive pulmonary disease, unspecified Status: Acute Assessment and Plan: * Duoneb q6. * Montelukast 10 mg PO HS. * Sa02 95% RA. * Pulmonology consulted. * FINDINGS The cardiomediastinal silhouette is unremarkable. Interval increase in size of the focus of necrotizing pneumonia within the right upper lobe measuring 8.7 x 6.9 cm (compared with 8.4 x 5.9 cm on the previous study performed 2 days earlier). Interval increase in the size of the right-sided pleural effusion when compared with previous study performed 2 days earlier. The left hemithorax remains clear. IMPRESSION: Interval increase in size of the right-sided necrotizing pneumonia with interval increase in the right-sided pleural effusion, when compared with previous examination performed approximately 2 days earlier. (3) Continuous tobacco abuse: Code(s): Z72.0 - Tobacco use Status: Acute Assessment and Plan: * Nicotine patch and nicotine gum to help with nicotine withdrawal symptoms. * The patient is not interested in quitting smoking at this time. * Smoking cessation encouraged. Subjective Date/time seen: 11/18/24 10:41 Interval history: Patient reports pain in the right side of his chest that is a 2, frequent, and sharp. Patient reports a dry cough and dyspnea on exertion. Patient denies chest pain, palpitations, shortness of breath at rest, headache, dizziness, nausea, or vomiting. Review of Systems Review of Systems: All systems reviewed & are unremarkable except as noted in HPI and below Exam Const: General: no acute distress and uncomfortable Resp: Effort & Inspection: normal respiratory effort Auscultation: diminished lung sounds Cardio: Rate: regular rate Rhythm: regular rhythm GI: GI Palp: Yes Soft to palpation Auscultation: normal bowel sounds Neuro: Speech: normal speech Extrem: General: no pedal edema Psych: Mental Status: mental status grossly normal Affect: normal affect Objective Data Vital Signs Vital Signs: Vital Signs - 24 hr 11/17/24 11:57 11/17/24 14:00 11/17/24 16:00 Temperature 98.1 F 98.1 F 98.4 F Pulse Rate 73 73 70 Respiratory Rate 16 16 18 Blood Pressure 115/71 115/71 120/74 Pulse Oximetry 95 95 96 Oxygen Delivery 11/17/24 20:00 11/17/24 20:02 11/17/24 20:03 Temperature Pulse Rate 83 Respiratory Rate 18 Blood Pressure Pulse Oximetry 94 Oxygen Delivery Room Air Room Air 11/17/24 20:07 11/17/24 21:21 11/17/24 21:25 Temperature 98.6 F Pulse Rate 83 90 87 Respiratory Rate 18 18 Blood Pressure 125/87 Pulse Oximetry 95 Oxygen Delivery 11/18/24 06:00 11/18/24 07:32 11/18/24 07:32 Temperature 98.2 F Pulse Rate 77 89 Respiratory Rate 22 H 20 Blood Pressure 123/86 Pulse Oximetry 94 92 Oxygen Delivery Room Air 11/18/24 07:41 Temperature Pulse Rate 82 Respiratory Rate 20 Blood Pressure Pulse Oximetry Oxygen Delivery Intake/Output Intake/Output: Intake & Output 11/15/24 11/16/24 11/17/24 11/18/24 23:59 23:59 23:59 23:59 Intake Total 1550 6240 550 Output Total 500 500 Balance 1050 5740 550 Meds/Results Medications: Active Medications Generic Name Dose Route Start Last Admin Trade Name Freq PRN Reason Stop Dose Admin Acetaminophen 650 mg 11/17/24 07:50 Acetaminophen 325 Mg Tablet PO Q4H PRN Mild Pain (1-3) or Fever Albuterol/Ipratropium 3 ml 11/17/24 08:00 11/18/24 07:30 Ipratropium 0.5 Mg/Albuterol Sulfate 2.5 Mg Ampul.Neb 3 Ml INHALATION 3 ml Q6HRT KADEN Administration Amlodipine Besylate 10 mg 11/17/24 21:00 11/17/24 21:23 Amlodipine Besylate 10 Mg Tablet PO 10 mg HS KADEN Administration Aripiprazole 15 mg 11/17/24 21:00 11/17/24 21:21 Aripiprazole 5 Mg Tablet PO 15 mg HS KADEN Administration Benztropine Mesylate 1 mg 11/17/24 21:00 11/17/24 21:21 Benztropine Mesylate 1 Mg Tablet PO 1 mg HS KADEN Administration Dextrose 12.5 gm 11/17/24 07:28 Dextrose 50% 25 Gm/50 Ml Syringe IV PUSH PRN PRN Hypoglycemia Protocol Divalproex Sodium 250 mg 11/17/24 07:15 11/18/24 06:[address] 250 Mg Tabec PO 250 mg Q8HR KADEN Administration Empagliflozin 25 mg 11/17/24 21:00 11/17/24 21:23 Empagliflozin 25 Mg Tablet PO 25 mg HS KADEN Administration Enoxaparin Sodium 40 mg 11/17/24 09:00 11/18/24 09:41 Enoxaparin 40 Mg/0.4 Ml Syringe SUB-Q 40 mg DAILY KADEN Administration Fluoxetine HCl 40 mg 11/17/24 21:00 11/17/24 21:22 Fluoxetine Hcl 20 Mg Capsule PO 40 mg HS KAEDN Administration Gabapentin 300 mg 11/17/24 21:00 11/17/24 21:23 Gabapentin 300 Mg Capsule PO 300 mg HS KADEN Administration Glucagon 1 mg 11/17/24 07:28 Glucagon For Inj 1 Mg Vial IM PRN PRN Hypoglycemia Protocol Glucose 15 gm 11/17/24 07:28 Glucose Oral Gel 15 Gm Of Glucse In 37.5 Gm Tube PO PRN PRN Hypoglycemia Protocol Ceftriaxone Sodium 1 gm in 50 mls @ 100 mls/hr 11/17/24 18:00 11/17/24 17:44 Rocephin 1 Gm/Ns 50 Ml IVPB 100 mls/hr Q24H KADEN Administration Metronidazole 500 mg in 100 mls @ 100 mls/hr 11/17/24 06:00 11/18/24 06:24 Flagyl 500 Mg/Iso Soln 100 Ml IVPB 100 mls/hr Q8H KADEN Administration Dextrose 1,000 mls @ 100 mls/hr 11/17/24 07:28 Dextrose 5% 1,000 Ml IVPB PRN PRN Hypoglycemia Protocol Vancomycin HCl 1,500 mg in 500 mls @ 250 mls/hr 11/18/24 09:00 11/18/24 09:41 Vancomycin 1,500 Mg/Ns 500 Ml IVPB 250 mls/hr Q8H KADEN Administration Insulin Aspart 3 - 6 units 11/17/24 08:00 11/18/24 09:40 Insulin Aspart (*Bkc) 100 Units/Ml SUB-Q Not Given TIDWM KADEN Protocol Ketorolac Tromethamine 15 mg 11/17/24 07:50 11/18/24 09:57 Ketorolac 15 Mg/Ml Vial (*Bkc) IV PUSH 15 mg Q6H PRN Administration Pain Rated 7-10 Levetiracetam 500 mg 11/17/24 09:00 11/18/24 09:41 Levetiracetam 500 Mg Tablet PO 500 mg Q12HR KADEN Administration Losartan Potassium 100 mg 11/17/24 21:00 11/17/24 21:23 Losartan Potassium 100 Mg Tablet PO 100 mg HS KADEN Administration Metformin HCl 1,000 mg 11/17/24 08:00 11/18/24 09:41 Metformin Hcl Xr 500 Mg Tab.Sr.24h PO 1,000 mg BIDWM KADEN Administration Montelukast Sodium 10 mg 11/17/24 21:00 11/17/24 21:23 Montelukast Sodium 10 Mg Tablet PO 10 mg HS KADEN Administration Nicotine 1 patch 11/17/24 09:00 11/18/24 09:41 Nicotine (*Pbkc) 21 Mg Patch TRANSDERM 1 patch DAILY KADEN Administration Nicotine Polacrilex 2 mg 11/17/24 07:52 11/18/24 09:42 Nicotine (*Pbkc) 2 Mg Gum PO 2 mg Q4H PRN Administration Nicotine Cravings Perflutren Lipid Microsphere 0 ml 11/18/24 08:52 Perflutren Lipid Microspheres 1.5 Ml Vial Diluted To 10 Ml Total Volume IV PUSH 11/21/24 08:52 ONCE PRN adequate visualization Protocol Propranolol HCl 20 mg 11/17/24 21:00 11/17/24 21:21 Propranolol Hcl 20 Mg Tablet PO 20 mg HS KADEN Administration Rosuvastatin Calcium 20 mg 11/17/24 21:00 11/17/24 21:22 Rosuvastatin 10 Mg Tablet PO 20 mg HS KADEN Administration Radiology Results: ITS Impressions Chest X-Ray 11/18/24 09:30 IMPRESSION: Interval increase in size of the right-sided necrotizing pneumonia with interval increase in the right-sided pleural effusion, when compared with previous examination performed approximately 2 days earlier. Labs Labs: Laboratory Results - last 24 hr 11/17/24 11/17/24 11/17/24 11:51 13:19 17:45 WBC RBC Hgb Hct MCV MCH MCHC RDW Plt Count MPV Immature Gran % (Auto) Neut % (Auto) Lymph % (Auto) [place] % (Auto) Eos % (Auto) Baso % (Auto) Lymph # (Auto) [place] # (Auto) Eos # (Auto) Baso # (Auto) Abs Immat Gran (auto) Absolute Neuts (auto) Absolute Nucleated RBC Nucleated RBC % Sodium Potassium Chloride Carbon Dioxide Anion Gap BUN Creatinine Estim Creat Clear Calc Estimated GFR Glucose POC Capillary Glucose 117 H 186 H Calcium Total Bilirubin AST ALT Alkaline Phosphatase Total Protein Albumin Vancomycin Trough Urine Opiates Screen Negative Urine Methadone Screen Negative Ur Barbiturates Screen Negative Ur Phencyclidine Scrn Negative Ur Amphetamine Screen Negative U Benzodiazepines Scrn Negative Urine Cocaine Screen Negative U Cannabinoids Screen Negative 11/17/24 11/18/24 11/18/24 21:32 07:53 08:17 WBC 12.0 H RBC 3.79 L Hgb 10.5 L Hct 32.5 L MCV 85.8 MCH 27.7 MCHC 32.3 RDW 12.9 Plt Count 417 H MPV 8.1 Immature Gran % (Auto) 1.6 H Neut % (Auto) 77.2 H Lymph % (Auto) 12.0 L [place] % (Auto) 8.3 Eos % (Auto) 0.6 Baso % (Auto) 0.3 Lymph # (Auto) 1.44 [place] # (Auto) 1.0 H Eos # (Auto) 0.1 Baso # (Auto) 0.0 Abs Immat Gran (auto) 0.19 H Absolute Neuts (auto) 9.3 H Absolute Nucleated RBC 0.000 Nucleated RBC % 0.0 Sodium 135 L Potassium 3.5 Chloride 101 Carbon Dioxide 23 Anion Gap 11 BUN 4 L Creatinine 0.38 L Estim Creat Clear Calc 179 Estimated GFR > 60 Glucose 181 H POC Capillary Glucose 248 H 189 H Calcium 8.1 L Total Bilirubin 0.4 AST 20 ALT 10 Alkaline Phosphatase 71 Total Protein 6.0 L Albumin 3.0 L Vancomycin Trough 7.2 L Urine Opiates Screen Urine Methadone Screen Ur Barbiturates Screen Ur Phencyclidine Scrn Ur Amphetamine Screen U Benzodiazepines Scrn Urine Cocaine Screen U Cannabinoids Screen Quality VTE Prophylaxis VTE prophylaxis: pharmacologic ordered (Lovenox 40 mg subQ daily.)
[2024-11-18 12:03] LABS: Glucose Point of Care 153 mg/dl (65-105)
[2024-11-18 17:25] LABS: Glucose Point of Care 202 mg/dl (65-105)
--- NOTE | 2024-11-18 17:34 | PM.CNPUL ---
Assessment and Plan Assessment and plan (1) Necrotizing pneumonia: Code(s): J85.0 - Gangrene and necrosis of lung Status: Acute Assessment and Plan: Rapid increased in size of his RUL necrotizing pneumonia, changed over 2 days on CXR from 8.4 cm x 5.9 cm on AP to 8.7 cm x 6.9 cm, larger on the lateral image over 12 cm width. He very likely vomited and aspirated several weeks ago. This gradually worsened, accompanied by cough, shortness of breath, right-sided chest pain, admitted on November 16 with leukocytosis and left shift, normocytic anemia, developing right pleural effusion. He is on ceftriaxone, vancomycin and Flagyl. plan: I will change his ceftriaxone to Levaquin 750 mg daily, continue Flagyl 500 mg IV Q 8 hr, and Vancomycin per pharmacist dosing. Add Cornet PEP valve to clear airway secretions, if possible. Bronchodilator therapy. Check urine antigens for Strep pneumoniae and Legionella, Check extended respiratory pathogen panel Swallow study; he likely aspirated oral microbes. Girlfriend told me that he has been vomiting after eating about twice a week for a month. Evaluation of his normocytic anemia; iron panel. I will review his echo when available, make sure that he does not have valvular disease with hematogenous spread to lungs. No risk factors; no IV drug use. I appreciate being able to see this pleasant patient. (2) COPD (chronic obstructive pulmonary disease): Qualifiers: COPD type: COPD with acute lower respiratory infection Qualified Code(s): J44.0 - Chronic obstructive pulmonary disease with (acute) lower respiratory infection Code(s): J44.9 - Chronic obstructive pulmonary disease, unspecified Status: Acute Assessment and Plan: Suspected diagnosis. He has smoked since age 13, does not use inhalers at home, does have wheezing and shortness of breath, more recently. When he recovers, needs PFTs. Continue his bronchodilator treatments. (3) Continuous tobacco abuse: Code(s): Z72.0 - Tobacco use Status: Acute Assessment and Plan: Smokes a pack and a half a day, started at age 13. He is using a nicotine patch which helps his cravings. (4) Normocytic anemia: Code(s): D64.9 - Anemia, unspecified Status: Acute Assessment and Plan: Likely anemia from his chronic infection. H/H 10.5/33% with normal MCV. He needs iron panel for baseline evaluation. Plan I was able to speak with his girlfriend, aWnda, who gave more history. She confirmed that he had been increasing ill for about a month, intermittent vomiting, poor intake, weakness, pale appearance, and was resistant to getting treatment because he did not think that he was sick. History of Present Illness History of Present Illness Consult date: 11/18/24 Requesting physician: Patricia Villarreal APRN Chief complaint: Pneumonia Narrative: Pt was seen November 18, 2024 at 17:55 Room 349 NEW: Jared Meraz is a 49-year-old man admitted with right sided pneumonia with a pleural effusion, 8.4 x 3.9 cm. This RUL lateral consolidation with air fluid levels has increased in size over the last 2 days with increased size of a right pleural effusion. He is now on ceftriaxone 1 g daily, Vancomycin and Flagyl 500 mg IV Q 8 hr. He has had borderline diabetes for years, checks his glucose at times. He came to the ER on November 15, had a chest CT then left AMA because he felt like smoking. After the CTA was interpreted, the doctor called the patient to tell him to return due to the severity of the images showing a right upper lobe cavitary lesions 3.3 x 6.6 x 5.5 cm, which has increased in size on each subsequent CXR. He is asking when he can go home. I showed him the images of his CXR with the increase in size of the RUL lesion with the radiologist's measurements, and told him that this is serious, he cannot go at least for several days and with response to antibiotics. He has had blood cultures, results are pending. He does not have sputum to submit. His QuantiFERON gold is pending. He has not travelled recently.. He developed right sided chest pain with coughing about a month ago. He continues to cough, however does not expectorate sputum. He is short of breath which he attributes to smoking. He cannot tell me whether or not he is more short of breath recently. He lives with his girlfriend Wanda ([phone]) and his son. For the last few months, he has been donating plasma twice a week. He recently started working at [employer] 2 shifts a week, has been out of work for a long time before getting this job. He denies having fevers, chills, decreased appetite, weight loss, although he does tell me that he is tired and fatigued. His sleep is poor due to being in pain on his right side due to coughing. He has not had lung infections in the past. He has not been around anyone with coughing or shortness of breath. He does not drink alcohol. He has no teeth on his upper jaw, and has 4 teeth on his lower jaw, none of these teeth are causing him pain. He vomited 3 days ago, one episode, did not choke. He cannot recall any associated symptoms, does not recall if he had abdominal pain with vomiting. He cannot recall when the last time he vomited before 3 days ago, tells me that he vomits at times, he is short of breath with exertion however cannot tell me how much walking causes him to rest. He attributes most of his symptoms to smoking. He had a general check up with is primary care doctor, Harriet Johnsno in [place] a few weeks ago, nothing reportable found at this visit. He does not use recreational substances, does not have any HIV risk factors such as sex with men, use of IV substances, no incarceration, no exposure to anyone who he knows has tuberculosis. His mother has been for years, cause unknown. Tobacco: 1.5 ppd, started smoking in his late teens, 39 pack years. Work: He recently started working at [employer] 2 shifts a week. He has been donating plasma two times a week for a few months. He cannot tell me what he did for week in the past. PMH: bipolar disorder, 39 pack per year smoking history with continued active tobacco use, essential hypertension and type 2 diabetes mellitus on oral medications. DATA: * wbc 12.5 k November 16 with left shift 81% neutrophils; hemoglobin 10.5 g per dL; hematocrit 33%; MCV 85.8; platelets 440 k. sodium 135 potassium 3.5 chloride 101 carbon dioxide 23 BUN 4 creatinine 0.38, glucose 181. Glucose was greater than 500 on November 17. MRSA nasal swab negative. Serologies negative for influenza a, influenza B, SARS-CoV-2 RNA and RSV. Bilirubin 0.4, AST 20, ALT 10, alkaline phosphatase 71. Protein 6.0, albumin 3.0, decreased. * Urine drug screen negative * 11/16/24 CXR; IMPRESSION: Findings suggesting necrotizing pneumonia within the right upper lobe, an interval change from prior. * 11/16/24 CTA; Findings: Right hilar lymphadenopathy present, measuring up to 2.3 cm in diameter. There is no filling defect; no PE; No aortic dissection, aneurysm, or pericardial effusion. Small right pleural effusion present. No left pleural effusion. There is extensive consolidation in the lateral right upper lobe with areas of fluid and air within the consolidation, compatible with presumed chronic change and developing cavitation. Left lung clear. Images through the upper abdomen reveal no abnormalities.Impression: No evidence of pulmonary embolus, aortic dissection, or aortic aneurysm. Extensive probable necrotizing pneumonia in the lateral right upper lobe. Underlying neoplasm felt less likely, though not completely excluded. Right hilar lymphadenopathy, presumably reactive. Small right pleural effusion. * 11/16/24 CXR; FINDINGS Re-demonstration of a large right-sided infiltrate with air-fluid levels increased in size from prior examination, 8.4 x 5.9 cm (cranial to caudal and medial to lateral dimension). Interval development of a moderate right-sided pleural effusion, not present on the previous examination. IMPRESSION: Re-demonstration of necrotizing pneumonia, increased in size from previous examination, now with a right-sided pleural effusion. * 11/18/2024 CXR; Interval increase in size of the focus of necrotizing pneumonia within the right upper lobe measuring 8.7 x 6.9 cm (compared with 8.4 x 5.9 cm on the previous study performed 2 days earlier). Interval increase in the size of the right-sided pleural effusion when compared with previous study performed 2 days earlier. The left hemithorax remains clear. IMPRESSION: Interval increase in size of the right-sided necrotizing pneumonia with interval increase in the right-sided pleural effusion, when compared with previous examination performed approximately 2 days earlier. Review of Systems Review of Systems: He denies chest pain other than the right sided pain with coughing. he has no rashes, epistaxis, leg swelling, no abdominal pain, (+) vomiting 3 days ago however cannot recall when he last vi=omited before that. He does not drink alcohol at all. He has no substance use aside from tobacco. He looks chronically ill, pale, has anemia, however cannot give a time line about how ling he has been not feeling normal. All systems reviewed & are unremarkable except as noted in HPI and below PMFSH Past Medical History Medical History (Updated 11/18/24 @ 20:23 by Makayla Humphrey MD) Diabetes mellitus Bipolar disorder COPD (chronic obstructive pulmonary disease) Hyperlipidemia Anxiety Depression Hypertension Epilepsy Surgical History Surgical History (Updated 11/17/24 @ 07:31 by Abril Joshi DO) History of spinal surgery Family History Family History (Updated 11/17/24 @ 07:33 by Abril Joshi DO) Other Unknown family medical history Social History Social History (Updated 11/17/24 @ 07:35 by Abril Joshi DO) Social History: The patient is and lives with his significant other Wanda. He has 1 daughter. He has smoked approximately 1.5 packs of cigarettes per day and started smoking at the age of 13. He denies any history of heavy alcohol use. 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 Code status: Full code Surrogate decision maker: His daughter or his significant other Wanda Smoking packs per day: 1.5 Smoking cigarettes per day: 30.0 Years smoked: 36 Smoking pack-years: 54.00 Smoking status: Current every day smoker Alcohol intake: former Substance use: never Do You Feel Safe in your Home?: Yes Lack of Transportation: No Lack of Food: Never True Current Housing: I Have Housing Concerned About Future Housing: No Difficulty Paying Gas/Electric Bills: No Difficulty Paying for Meds: No Currently Unemployed: No Education: Grade School Difficulty w/ Childcare or Family Care: No Spiritual care concerns: No Meds Home Medications and Allergies Home Medications ?Medication ?Instructions ?Recorded ?Confirmed ?Type amlodipine 10 mg tablet 10 mg PO DAILY 12/22/23 11/16/24 History aripiprazole 15 mg tablet 15 mg PO DAILY 12/22/23 11/16/24 History benztropine 1 mg tablet 1 mg PO DAILY 12/22/23 11/16/24 History gabapentin 300 mg capsule 300 mg PO DAILY 12/22/23 11/16/24 History ibuprofen 800 mg tablet 800 mg PO DAILY 12/22/23 11/16/24 History losartan 100 mg tablet 100 mg PO DAILY 12/22/23 11/16/24 History metformin 500 mg tablet,extended 1,000 mg PO BID 12/22/23 11/16/24 History release 24 hr montelukast 10 mg tablet 10 mg PO DAILY 12/22/23 11/16/24 History propranolol 20 mg tablet 20 mg PO DAILY 12/22/23 11/16/24 History rosuvastatin 10 mg tablet 20 mg PO DAILY 12/22/23 11/16/24 History divalproex 250 mg tablet,delayed 250 mg PO Q8H 11/16/24 11/16/24 History release (Depakote) empagliflozin 25 mg tablet 25 mg PO DAILY 11/16/24 11/16/24 History (Jardiance) fluoxetine 40 mg capsule 40 mg PO DAILY 11/16/24 11/16/24 History levetiracetam 500 mg tablet 500 mg PO BID 11/16/24 11/16/24 History (Keppra) Allergies Allergy/AdvReac Type Severity Reaction Status Date / Time Penicillins Allergy Unknown Rash Verified 11/16/24 18:10 hydrocodone Allergy Rash Verified 11/16/24 18:10 Vital Signs Vital Signs - 24 hr 11/17/24 20:00 11/17/24 20:02 11/17/24 20:03 Temperature Pulse Rate 83 Respiratory Rate 18 Blood Pressure Pulse Oximetry 94 Oxygen Delivery Room Air Room Air 11/17/24 20:07 11/17/24 21:21 11/17/24 21:25 Temperature 37.0 C Pulse Rate 83 90 87 Respiratory Rate 18 18 Blood Pressure 125/87 Pulse Oximetry 95 Oxygen Delivery 11/18/24 06:00 11/18/24 07:32 11/18/24 07:32 Temperature 36.8 C Pulse Rate 77 89 Respiratory Rate 22 H 20 Blood Pressure 123/86 Pulse Oximetry 94 92 Oxygen Delivery Room Air 11/18/24 07:41 11/18/24 08:00 11/18/24 12:00 Temperature 36.3 C L Pulse Rate 82 80 Respiratory Rate 20 14 Blood Pressure 108/76 Pulse Oximetry 93 93 Oxygen Delivery Room Air 11/18/24 14:00 Temperature 36.3 C L Pulse Rate 80 Respiratory Rate 14 Blood Pressure 108/76 Pulse Oximetry 93 Oxygen Delivery Exam Narrative: GEN: Alert, oriented, chronically ill appearing. He is cooperative, cannot answer questions, probably because he is so ill. He struggles with memory. HEENT: pupils are equal, EOMI, symmetrical face; oral membranes moist, has no teeth on the upper jaw, 4 teeth on the lower jaw, 3 are in the front. Periodontal disease. Mallampati II airway NECK: Trachea is midline, no lymphadenopathy. CHEST: Equal air entry, symmetric excursion, decreased breath sounds, rare rhonchi on the right side. No wheezing. CV: Regular S1S2 no m/g/r ABD : (+) bowel sounds, soft. Extremities : no clubbing, cyanosis, or edema, no calf tenderness, brisk capillary refill. No rashes. PSYCH: Speech is normal, gait is not tested. Results Laboratory Findings 11/18/24 07:53 11/18/24 07:53 ABG, PT/INR, D-dimer: PT/INR, D-dimer PT 14.5 Seconds (11.1-14.7) 11/16/24 18:05 INR 1.1 11/16/24 18:05 Abnormal lab findings: Abnormal Labs 11/16/24 11/16/24 11/17/24 18:05 20:36 05:07 WBC 12.5 H RBC 3.80 L Hgb 10.5 L Hct 33.0 L MCHC 31.8 L Plt Count 440 H Immature Gran % (Auto) 0.6 H Neut % (Auto) 81.0 H Lymph % (Auto) 8.5 L [place] % (Auto) 9.1 H [place] # (Auto) 1.1 H Abs Immat Gran (auto) 0.07 H Absolute Neuts (auto) 10.2 H Sodium 133 L 132 L Carbon Dioxide 21 L BUN 6 L Creatinine 0.48 L 0.38 L Glucose 333 H POC Capillary Glucose 190 H Calcium AST C-Reactive Protein 22.8 H Total Protein Albumin 3.3 L Vancomycin Trough 11/17/24 11/17/24 11/17/24 05:07 07:41 08:44 WBC 11.3 H RBC 3.71 L Hgb 10.2 L Hct 32.0 L MCHC 31.9 L Plt Count 401 H Immature Gran % (Auto) Neut % (Auto) 78.4 H Lymph % (Auto) 11.6 L [place] % (Auto) [place] # (Auto) 0.9 H Abs Immat Gran (auto) 0.06 H Absolute Neuts (auto) 8.9 H Sodium Carbon Dioxide BUN Creatinine 0.42 L Glucose 242 H POC Capillary Glucose > 500 H* Calcium 7.8 L AST 14 L C-Reactive Protein Total Protein 6.0 L Albumin 2.4 L Vancomycin Trough 11/17/24 11/17/24 11/17/24 08:47 11:51 17:45 WBC RBC Hgb Hct MCHC Plt Count Immature Gran % (Auto) Neut % (Auto) Lymph % (Auto) [place] % (Auto) [place] # (Auto) Abs Immat Gran (auto) Absolute Neuts (auto) Sodium Carbon Dioxide BUN Creatinine Glucose POC Capillary Glucose 251 H 117 H 186 H Calcium AST C-Reactive Protein Total Protein Albumin Vancomycin Trough 11/17/24 11/18/24 11/18/24 21:32 07:53 08:17 WBC 12.0 H RBC 3.79 L Hgb 10.5 L Hct 32.5 L MCHC Plt Count 417 H Immature Gran % (Auto) 1.6 H Neut % (Auto) 77.2 H Lymph % (Auto) 12.0 L [place] % (Auto) [place] # (Auto) 1.0 H Abs Immat Gran (auto) 0.19 H Absolute Neuts (auto) 9.3 H Sodium 135 L Carbon Dioxide BUN 4 L Creatinine 0.38 L Glucose 181 H POC Capillary Glucose 248 H 189 H Calcium 8.1 L AST C-Reactive Protein Total Protein 6.0 L Albumin 3.0 L Vancomycin Trough 7.2 L 11/18/24 11/18/24 12:01 17:17 WBC RBC Hgb Hct MCHC Plt Count Immature Gran % (Auto) Neut % (Auto) Lymph % (Auto) [place] % (Auto) [place] # (Auto) Abs Immat Gran (auto) Absolute Neuts (auto) Sodium Carbon Dioxide BUN Creatinine Glucose POC Capillary Glucose 153 H 202 H Calcium AST C-Reactive Protein Total Protein Albumin Vancomycin Trough
[2024-11-18] MEDS: BENZTROPINE MESYLATE 1 MG TABLET PO (21:38)
[2024-11-18] MEDS: MONTELUKAST SODIUM 10 MG TABLET PO (21:38)
[2024-11-18] MEDS: LOSARTAN POTASSIUM 100 MG TABLET PO (21:38)
[2024-11-18] MEDS: ARIPiprazole 5 MG TABLET 15 MG PO (21:38)
[2024-11-18] MEDS: FLUoxetine HCL 20 MG CAPSULE 40 MG PO (21:39)
[2024-11-18] MEDS: amLODIPine BESYLATE 10 MG TABLET PO (21:40)
[2024-11-18] MEDS: PROPRANOLOL HCL 20 MG TABLET PO (21:40)
[2024-11-18] MEDS: ROSUVASTATIN 10 MG TABLET 20 MG PO (21:41)
[2024-11-18] MEDS: GABAPENTIN 300 MG CAPSULE PO (21:41)
[2024-11-18] MEDS: levoFLOXacin 750 MG/D5W 150 ML 750 MG/150 ML BAG 100 MG IVPB (21:41)
[2024-11-18] MEDS: EMPAGLIFLOZIN 25 MG TABLET PO (21:41)
[2024-11-18 23:15] LABS: Glucose Point of Care 238 mg/dl (65-105)
[2024-11-19] VITALS (10 sets, daily range): BP systolic 104–121; BP diastolic 71–81; PULSE 66–84; RESP 16–28; TEMP 35.8–37.2; O2SAT 94–97
--- NOTE | 2024-11-19 | ECHO_ITS ---
Patient Info Name: Jared Meraz Age: 49 years : 1975 Gender: Male Ht: 67 in Wt: 163 lbs BSA: 1.88 m2 HR: 71 bpm BP: 115 / 81 mmHg Technical Quality: Good Exam Date: 11/19/2024 8:44 AM Patient Status: I Admit Date: 11/18/2024 Exam Type: CA echo doppler color flow Complete two-dimensional, color flow and Doppler transthoracic echocardiogram is performed. Staff Referring Physician: Makayla Humphrey MD Baggage Agent Supervisor: Lennie Perez Attending Provider: Bhavik Torres Summary 1. Complete two-dimensional, color flow and Doppler transthoracic echocardiogram is performed. 2. The left ventricle is normal in size and systolic function. The left ventricular ejection fraction is visually estimated to be 60-65%. There are no regional wall motion abnormalities. There is normal diastolic function. 3. The right ventricle is normal in size and systolic function. 4. There are no significant valvular abnormalities. Left Ventricle The left ventricle is normal in size and systolic function. The left ventricular ejection fraction is visually estimated to be 60-65%. There are no regional wall motion abnormalities. There is normal diastolic function. Right Ventricle The right ventricle is normal in size and systolic function. Left Atria The left atrium is normal size. Right Atria The right atrium is normal size. Atrial Septum The atrial septum is normal. Aortic Valve The aortic valve is trileaflet and opens well. There is no aortic regurgitation. Pulmonic Valve The pulmonic valve is not well visualized. There is no color Doppler evidence of pulmonic valve regurgitation. Mitral Valve The mitral valve is normal. There is no mitral regurgitation. Tricuspid Valve The tricuspid valve is normal. There is trace tricuspid regurgitation. Pericardium/Pleural Pericardium is normal in appearance with no evidence for significant pericardial effusion. Inferior Vena Cava Normal inferior vena cava with >50% collapse upon inspiration consistent with normal right atrial pressure, 3 mmHg. Aorta The aortic root at the level of the sinus of Valsalva measures 3.1 cm in diameter. Left Ventricular Outflow Tract Name Value Normal LVOT 2D LVOT Diameter 1.9 cm LVOT Doppler LVOT Peak Velocity 146 cm/s LVOT Peak Gradient 9 mmHg LVOT Mean Gradient 4 mmHg LVOT VTI 28 cm LVOT VTI/AV VTI Ratio 0.9 LVOT Stroke Volume 82 ml LVOT CO 17.6 l/min LVOT CI 9.3 l/min/m2 Mitral Valve Name Value Normal MV Diastolic Function MV E Peak Velocity 83 cm/s MV A Peak Velocity 60 cm/s MV E/A 1.4 MV Decel Time (PW) 189 ms MV Annular TDI MV E/e' (Septal) 7.4 MV E/e' (Lateral) 4.8 MV E/e' (Average) 6.1 Tricuspid Valve Name Value Normal TV Regurgitation Doppler TR Peak Velocity 216 cm/s TR Peak Gradient 19 mmHg Estimated PAP/RSVP RA Pressure 3 mmHg <=5 PA Systolic Pressure 22 mmHg <36 RV Systolic Pressure 22 mmHg <36 TV Annular TDI TV Lateral Viry s' Velocity 14.6 cm/s >=9.5 Aorta Name Value Normal Ascending Aorta Ao Root Diameter (MM) 3.3 cm Ao Root Diam Index (MM) 1.8 cm/m2 Aortic Valve Name Value Normal AV Doppler AV Peak Velocity 165 cm/s AV Peak Gradient 11 mmHg AV Mean Gradient 6 mmHg AV VTI 31 cm AV Area (Cont Eq VTI) 2.7 cm2 >=3.0 AV Area (Cont Eq Alfredo) 2.6 cm2 AV DI (Alfredo) 0.89 AV Regurgitation 2D LVOT Area 3.0 cm2 Ventricles Name Value Normal LV Dimensions 2D/MM IVS Diastolic Thickness (2D) 1.1 cm 0.6-1.0 LVID Diastole (2D) 4.2 cm 4.2-5.8 LVIW Diastolic Thickness (2D) 1.0 cm 0.6-1.0 LVID Systole (2D) 2.4 cm 2.5-4.0 LVOT Diameter 1.9 cm LV Mass (2D Cubed) 144.56 g 88.00-224.00 LV Mass Index (2D Cubed) 77 g/m2 49-115 Relative Wall Thickness (2D) 0.47 <=0.42 LV Fractional Shortening/Ejection Fraction 2D/MM LV Fractional Shortening (2D) 43 % 25-43 LV EF (2D Teichholz) 75 % LV Diastolic Volume (4C MOD) 83 ml LV EF (4C MOD) 66 % LV Diastolic Volume (2C MOD) 84 ml LV EF (2C MOD) 68 % LV Diastolic Volume (BP MOD) 84 ml 62-150 LV Diastolic Volume Index (BP MOD) 44 ml/m2 34-74 LV Systolic Volume (BP MOD) 28 ml 21-61 LV Systolic Volume Index (BP MOD) 15 ml/m2 11-31 LV EF (BP MOD) 67 % 52-72 LV Diastolic Length (4C) 8.1 cm LV Systolic Length (4C) 6.4 cm LV Stroke Volume (4C MOD) 55 ml RV Dimensions 2D/MM RVID Diastole (2D) 4.2 cm 2.1-3.5 Atria Name Value Normal LA Dimensions LA Volume (4C A-L) 31 ml LA Volume (BP A-L) 38 ml RA Dimensions RA Systolic Major [place] Length (4C) 4.1 cm 2.1-2.7 RA Area (4C) 11.0 cm2 <=18.0 Report Signatures
[2024-11-19] MEDS: VANCOMYCIN 1,500 MG/NS 500 ML 1,500 MG/500 ML BAG 250 MG IVPB (00:19)
[2024-11-19] MEDS: metroNIDAZOLE 500 MG/ISO 100ML 500 MG/100 ML BAG 100 MG IVPB ×3 (05:27→20:48)
[2024-11-19] MEDS: DIVALPROEX SODIUM DR 250 MG TABEC PO ×3 (05:27→21:02)
--- NOTE | 2024-11-19 05:41 | PC.NURSE ---
Attempted to collect respiratory pathogen panel. Patient states adamantly, I can't do this. I just can't. I don't like things up my nose. He refuses at this time. Will have other floor RN attempt.
--- NOTE | 2024-11-19 06:59 | PCSTNOTE ---
ST attempted to schedule MBS on 11/19, however radiology reports there is no radiologist on site. Will complete 11/20.
[2024-11-19 08:22] LABS: Basophils Percent Auto 0.3 % (0.2-1.2); Eosinophils Absolute Auto 0.1 K/mm3 (0-0.3); Eosinophils Percent Auto 0.9 % (0-4.4); Hematocrit 33.1 % (42.0-52.0); Hemoglobin 10.6 g/dL (14.0-18.0); Immature Granulocyte Absolute 0.06 K/mm3 (0.00-0.031); Immature Granulocyte Percent A 0.6 % (0-0.5); Lymphocytes Percent Auto 10.4 % (18.3-44.2); Mean Corpuscular Hemoglobin 27.8 pg (26-34); Mean Corpuscular Volume 86.9 fl (80-100); Mean Platelet Volume 8.1 fl (7.4-10.4); Monocytes Absolute Auto 0.8 K/mm3 (0.1-0.6); Monocytes Percent Auto 7.9 % (2.6-8.5); Neutrophils Absolute Auto 8.5 K/mm3 (1.3-6.7); Neutrophils Percent Auto 79.9 % (45.5-73.1); Platelet Count Result 441 k/mm3 (150-375); Red Blood Count 3.81 M/mm3 (4.6-6.20); White Blood Count 10.6 K/mm3 (4.5-10.0)
[2024-11-19 08:24] LABS: Glucose Point of Care 110 mg/dl (65-105)
[2024-11-19 08:39] LABS: Iron 43 ug/dL (49-181)
[2024-11-19 08:41] LABS: Alanine Aminotransferase 8 U/L (6-50); Albumin Level 2.9 g/dL (3.5-5.1); Alkaline Phosphatase 67 U/L (38-126); Anion Gap 7 mmol/L (4-12); Aspartate Amino Transferase 23 U/L (17-59); Bilirubin,Total 0.3 mg/dL (0.2-1.3); Blood Urea Nitrogen 4 mg/dL (9-20); Calcium 8.4 mg/dL (8.4-10.2); Carbon Dioxide 26 mmol/L (22-30); Chloride 103 mmol/L (98-107); Estimated CRCL calculation 171 ml/min; Estimated Glomerular Filt Rate > 60; Glucose 111 mg/dL (65-110); Potassium 3.6 mmol/L (3.4-5.0); Sodium 136 mmol/L (137-145)
[2024-11-19 08:48] LABS: Percent Iron Saturation 22 % (20-50)
[2024-11-19] MEDS: NICOTINE (*PBKC) 21 MG PATCH 1 PATCH TRANSDERM (10:12)
[2024-11-19] MEDS: levETIRAcetam 500 MG TABLET PO ×2 (10:12→20:38)
[2024-11-19] MEDS: metFORMIN HCL XR 500 MG TAB.SR.24H 1000 MG PO ×2 (10:12→17:06)
[2024-11-19] MEDS: VANCOMYCIN 2,000 MG/NS 500 ML 2,000 MG/500 ML BAG 250 MG IVPB ×2 (10:13→17:07)
[2024-11-19] MEDS: ENOXAPARIN 40 MG/0.4 ML SYRINGE SUB-Q (10:14)
[2024-11-19] MEDS: NICOTINE (*PBKC) 2 MG GUM PO (10:15)
--- NOTE | 2024-11-19 11:01 | P.PNIM_ITS ---
Progress Note: A&P Assessment and Plan (1) Necrotizing pneumonia: Code(s): J85.0 - Gangrene and necrosis of lung Status: Acute Assessment and Plan: * Patient has cavitary lesions suspicious for necrotizing pneumonia verses mass with necrosis with necrotizing pneumonia being more likely. * Chest X-ray showed:FINDINGS Remonstration of a large right-sided infiltrate with air-fluid levels increased in size from prior examination. Measuring 8.4 x 5.9 cm (cranial to caudal and medial to lateral dimension). Interval development of a moderate right-sided pleural effusion, not present on the previous examination. The cardiomediastinal silhouette is unremarkable. The left hemithorax is clear. IMPRESSION: Redemonstration of necrotizing pneumonia, increased in size from previous examination, now with a right-sided pleural effusion. * The patient does endorse recent weight loss. He denies any hemoptysis or known ill contacts. * Levofloxacin 750 mg IVPB daily, Metronidazole 500 mg IVPB q8, and Vancomycin 2,000 mg IVPB q8. * Duonebs q6. * Sa02 94% RA. * Respiratory panel negative. * Urine drug screen negative. * QuantiFERON gold- pending. * Pulmonology consulted, appreciate recommendations. * Chest X-ray: FINDINGS The cardiomediastinal silhouette is unremarkable. Interval increase in size of the focus of necrotizing pneumonia within the right upper lobe measuring 8.7 x 6.9 cm (compared with 8.4 x 5.9 cm on the previous study performed 2 days earlier). Interval increase in the size of the right-sided pleural effusion when compared with previous study performed 2 days earlier. The left hemithorax remains clear. IMPRESSION: Interval increase in size of the right-sided necrotizing pneumonia with interval increase in the right-sided pleural effusion, when compared with previous examination performed approximately 2 days earlier. * Echocardiogram ordered. * WBC 12.0>10.6, improved. * Cornet Valve. * Modified barium swallow ordered. * Check urine antigens for Strep pneumoniae and Legionella-pending. * Respiratory Pathogen Panel Routine ordered. (2) COPD (chronic obstructive pulmonary disease): Qualifiers: COPD type: COPD with acute lower respiratory infection Qualified Code(s): J44.0 - Chronic obstructive pulmonary disease with (acute) lower respiratory infection Code(s): J44.9 - Chronic obstructive pulmonary disease, unspecified Status: Acute Assessment and Plan: * Duoneb q6. * Montelukast 10 mg PO HS. * Sa02 94% RA. * Pulmonology consulted. * FINDINGS The cardiomediastinal silhouette is unremarkable. Interval increase in size of the focus of necrotizing pneumonia within the right upper lobe measuring 8.7 x 6.9 cm (compared with 8.4 x 5.9 cm on the previous study performed 2 days earlier). Interval increase in the size of the right-sided pleural effusion when compared with previous study performed 2 days earlier. The left hemithorax remains clear. IMPRESSION: Interval increase in size of the right-sided necrotizing pneumonia with interval increase in the right-sided pleural effusion, when compared with previous examination performed approximately 2 days earlier. (3) Continuous tobacco abuse: Code(s): Z72.0 - Tobacco use Status: Acute Assessment and Plan: * Nicotine patch and nicotine gum to help with nicotine withdrawal symptoms. * The patient is not interested in quitting smoking at this time. * Smoking cessation encouraged. Subjective Date/time seen: 11/19/24 11:01 Interval history: Patient denies chest pain, shortness of breath, palpitations, dizziness, or headaches. Respiratory reported that patient had skipped some neb treatments. Discussed importance of nebulizer treatments with patient. Review of Systems Review of Systems: All systems reviewed & are unremarkable except as noted in HPI and below Exam Const: General: comfortable and no acute distress Resp: Effort & Inspection: normal respiratory effort Auscultation: diminished lung sounds Cardio: Rate: regular rate Rhythm: regular rhythm GI: GI Palp: Yes Soft to palpation Auscultation: normal bowel sounds Neuro: Speech: normal speech Extrem: General: no pedal edema Psych: Mental Status: mental status grossly normal Affect: normal affect Objective Data Vital Signs Vital Signs: Vital Signs - 24 hr 11/18/24 12:00 11/18/24 14:00 11/18/24 20:07 Temperature 97.3 F L 97.3 F L Pulse Rate 80 80 75 Respiratory Rate 14 14 20 Blood Pressure 108/76 108/76 Pulse Oximetry 93 93 Oxygen Delivery 11/18/24 20:09 11/18/24 20:15 11/18/24 21:40 Temperature Pulse Rate 78 82 Respiratory Rate 18 Blood Pressure Pulse Oximetry 95 Oxygen Delivery Room Air 11/18/24 22:00 11/19/24 04:00 Temperature 97.9 F 99.0 F Pulse Rate 69 71 Respiratory Rate 18 16 Blood Pressure 128/82 115/81 Pulse Oximetry 98 97 Oxygen Delivery Intake/Output Intake/Output: Intake & Output 11/16/24 11/17/24 11/18/24 11/19/24 23:59 23:59 23:59 23:59 Intake Total 1550 6290 4150 2840 Output Total 500 500 700 Balance 1050 5790 4150 2140 Meds/Results Medications: Active Medications Generic Name Dose Route Start Last Admin Trade Name Freq PRN Reason Stop Dose Admin Acetaminophen 650 mg 11/17/24 07:50 Acetaminophen 325 Mg Tablet PO Q4H PRN Mild Pain (1-3) or Fever Albuterol/Ipratropium 3 ml 11/17/24 08:00 11/19/24 08:14 Ipratropium 0.5 Mg/Albuterol Sulfate 2.5 Mg Ampul.Neb 3 Ml INHALATION Not Given Q6HRT KADEN Amlodipine Besylate 10 mg 11/17/24 21:00 11/18/24 21:40 Amlodipine Besylate 10 Mg Tablet PO 10 mg HS KADEN Administration Aripiprazole 15 mg 11/17/24 21:00 11/18/24 21:38 Aripiprazole 5 Mg Tablet PO 15 mg HS KADEN Administration Benztropine Mesylate 1 mg 11/17/24 21:00 11/18/24 21:38 Benztropine Mesylate 1 Mg Tablet PO 1 mg HS KADEN Administration Dextrose 12.5 gm 11/17/24 07:28 Dextrose 50% 25 Gm/50 Ml Syringe IV PUSH PRN PRN Hypoglycemia Protocol Divalproex Sodium 250 mg 11/17/24 07:15 11/19/24 05:[address] 250 Mg Tabec PO 250 mg Q8HR KADEN Administration Empagliflozin 25 mg 11/17/24 21:00 11/18/24 21:41 Empagliflozin 25 Mg Tablet PO 25 mg HS KADEN Administration Enoxaparin Sodium 40 mg 11/17/24 09:00 11/19/24 10:14 Enoxaparin 40 Mg/0.4 Ml Syringe SUB-Q 40 mg DAILY KADEN Administration Fluoxetine HCl 40 mg 11/17/24 21:00 11/18/24 21:39 Fluoxetine Hcl 20 Mg Capsule PO 40 mg HS KADEN Administration Gabapentin 300 mg 11/17/24 21:00 11/18/24 21:41 Gabapentin 300 Mg Capsule PO 300 mg HS KADEN Administration Glucagon 1 mg 11/17/24 07:28 Glucagon For Inj 1 Mg Vial IM PRN PRN Hypoglycemia Protocol Glucose 15 gm 11/17/24 07:28 Glucose Oral Gel 15 Gm Of Glucse In 37.5 Gm Tube PO PRN PRN Hypoglycemia Protocol Dextrose 1,000 mls @ 100 mls/hr 11/17/24 07:28 Dextrose 5% 1,000 Ml IVPB PRN PRN Hypoglycemia Protocol Metronidazole 500 mg in 100 mls @ 100 mls/hr 11/18/24 22:00 11/19/24 06:30 Flagyl 500 Mg/Iso Soln 100 Ml IVPB Infused Q8H KADEN Infusion Levofloxacin/Dextrose 750 mg in 150 mls @ 100 mls/hr 11/18/24 21:00 11/18/24 23:15 Levaquin 750 Mg/D5w 150 Ml IVPB Infused Q24H KADEN Infusion Vancomycin HCl 2,000 mg in 500 mls @ 250 mls/hr 11/19/24 09:00 11/19/24 10:13 Vancomycin 2,000 Mg/Ns 500 Ml IVPB 250 mls/hr Q8H KADEN Administration Insulin Aspart 3 - 6 units 11/17/24 08:00 11/19/24 08:30 Insulin Aspart (*Bkc) 100 Units/Ml SUB-Q Not Given TIDWM KADEN Protocol Ketorolac Tromethamine 15 mg 11/17/24 07:50 11/18/24 09:57 Ketorolac 15 Mg/Ml Vial (*Bkc) IV PUSH 15 mg Q6H PRN Administration Pain Rated 7-10 Levetiracetam 500 mg 11/17/24 09:00 11/19/24 10:12 Levetiracetam 500 Mg Tablet PO 500 mg Q12HR KADEN Administration Losartan Potassium 100 mg 11/17/24 21:00 11/18/24 21:38 Losartan Potassium 100 Mg Tablet PO 100 mg HS KADEN Administration Metformin HCl 1,000 mg 11/17/24 08:00 11/19/24 10:12 Metformin Hcl Xr 500 Mg Tab.Sr.24h PO 1,000 mg BIDWM KADEN Administration Montelukast Sodium 10 mg 11/17/24 21:00 11/18/24 21:38 Montelukast Sodium 10 Mg Tablet PO 10 mg HS KADEN Administration Nicotine 1 patch 11/17/24 09:00 11/19/24 10:12 Nicotine (*Pbkc) 21 Mg Patch TRANSDERM 1 patch DAILY KADEN Administration Nicotine Polacrilex 2 mg 11/17/24 07:52 11/19/24 10:15 Nicotine (*Pbkc) 2 Mg Gum PO 2 mg Q4H PRN Administration Nicotine Cravings Perflutren Lipid Microsphere 0 ml 11/18/24 08:52 Perflutren Lipid Microspheres 1.5 Ml Vial Diluted To 10 Ml Total Volume IV PUSH 11/21/24 08:52 ONCE PRN adequate visualization Protocol Propranolol HCl 20 mg 11/17/24 21:00 11/18/24 21:40 Propranolol Hcl 20 Mg Tablet PO 20 mg HS KADEN Administration Rosuvastatin Calcium 20 mg 11/17/24 21:00 11/18/24 21:41 Rosuvastatin 10 Mg Tablet PO 20 mg HS KADEN Administration Radiology Results: ITS Impressions Chest X-Ray 11/18/24 09:30 IMPRESSION: Interval increase in size of the right-sided necrotizing pneumonia with interval increase in the right-sided pleural effusion, when compared with previous examination performed approximately 2 days earlier. Labs Labs: Laboratory Results - last 24 hr 11/18/24 11/18/24 11/18/24 12:01 17:17 22:41 WBC RBC Hgb Hct MCV MCH MCHC RDW Plt Count MPV Immature Gran % (Auto) Neut % (Auto) Lymph % (Auto) Union % (Auto) Eos % (Auto) Baso % (Auto) Lymph # (Auto) Union # (Auto) Eos # (Auto) Baso # (Auto) Abs Immat Gran (auto) Absolute Neuts (auto) Absolute Nucleated RBC Nucleated RBC % Sodium Potassium Chloride Carbon Dioxide Anion Gap BUN Creatinine Estim Creat Clear Calc Estimated GFR Glucose POC Capillary Glucose 153 H 202 H 238 H Calcium Iron TIBC % Saturation Ferritin Total Bilirubin AST ALT Alkaline Phosphatase Total Protein Albumin Vancomycin Trough 11/19/24 11/19/24 07:54 08:18 WBC 10.6 H RBC 3.81 L Hgb 10.6 L Hct 33.1 L MCV 86.9 MCH 27.8 MCHC 32.0 RDW 13.0 Plt Count 441 H MPV 8.1 Immature Gran % (Auto) 0.6 H Neut % (Auto) 79.9 H Lymph % (Auto) 10.4 L Union % (Auto) 7.9 Eos % (Auto) 0.9 Baso % (Auto) 0.3 Lymph # (Auto) 1.10 Union # (Auto) 0.8 H Eos # (Auto) 0.1 Baso # (Auto) 0.0 Abs Immat Gran (auto) 0.06 H Absolute Neuts (auto) 8.5 H Absolute Nucleated RBC 0.000 Nucleated RBC % 0.0 Sodium 136 L Potassium 3.6 Chloride 103 Carbon Dioxide 26 Anion Gap 7 BUN 4 L Creatinine 0.40 L Estim Creat Clear Calc 171 Estimated GFR > 60 Glucose 111 H POC Capillary Glucose 110 H Calcium 8.4 Iron 43 L TIBC 197 L % Saturation 22 Ferritin 167.00 Total Bilirubin 0.3 AST 23 ALT 8 Alkaline Phosphatase 67 Total Protein 6.0 L Albumin 2.9 L Vancomycin Trough 12.0 Quality VTE Prophylaxis VTE prophylaxis: pharmacologic ordered (Lovenox 40 mg subQ daily.)
[2024-11-19 11:58] LABS: Glucose Point of Care 103 mg/dl (65-105)
[2024-11-19] MEDS: IPRATROPIUM 0.5 MG/ALBUTEROL SULFATE 2.5 MG AMPUL.NEB 3 ML INHALATION ×2 (13:18→19:48)
[2024-11-19] MEDS: KETOROLAC 15 MG/ML VIAL (*BKC) IV PUSH (14:01)
--- NOTE | 2024-11-19 17:34 | P.PNPL_ITS ---
Progress Note: A&P Assessment and Plan (1) Necrotizing pneumonia: Code(s): J85.0 - Gangrene and necrosis of lung Status: Acute Assessment and Plan: 11/18/24; Rapid increased in size of his RUL necrotizing pneumonia, changed over 2 days on CXR from 8.4 cm x 5.9 cm on AP to 8.7 cm x 6.9 cm, larger on the lateral image over 12 cm width. He very likely vomited and aspirated several weeks ago. This gradually worsened, accompanied by cough, shortness of breath, right-sided chest pain, admitted on November 16 with leukocytosis and left shift, normocytic anemia, developing right pleural effusion. Ceftriaxone changed to Levaquin, continued vancomycin and Flagyl. Added Cornet PEP valve, bronchodilator therapy. Testing including urine antigens for Strep pneumoniae and Legionella, extended respiratory pathogen panel; Swallow study as he likely aspirated oral microbes.Evaluation of his normocytic anemia; iron panel. 11/21/24; he feels fine, wants to go home. He is now on oral Levaquin and oral Flagyl, IV vancomycin; He has a normal WBC today 9.3, down since admission. No sputum is available for evaluation. Extended respiratory panel is pending, QuantiFERON Gold pending. No fever but never had a fever. Normal Modified barium swallow, helpful to knwo taht he does not have significant aspiration contributing to this. I believe that he needs to have more evaluation for his right lung cavitary lesion, discussed with Peter Maldonado, and will discuss with patient. I called his girlfriend, Wanda, left a voice message for her to call back to discuss his need for possible transfer. (2) COPD (chronic obstructive pulmonary disease): Qualifiers: COPD type: COPD with acute lower respiratory infection Qualified Code(s): J44.0 - Chronic obstructive pulmonary disease with (acute) lower respiratory infection Code(s): J44.9 - Chronic obstructive pulmonary disease, unspecified Status: Acute Assessment and Plan: 11/18/24 Suspected diagnosis. He has smoked since age 13, does not use inhalers at home, does have wheezing and shortness of breath, more recently. When he recovers, needs PFTs. Continue his bronchodilator treatments. 11/21/24: Continue albuterol and ipratropium nebulized treatments. (3) Continuous tobacco abuse: Code(s): Z72.0 - Tobacco use Status: Acute Assessment and Plan: Smokes a pack and a half a day, started at age 13. He is using a nicotine patch which helps his cravings while he is in the hosital.. (4) Normocytic anemia: Code(s): D64.9 - Anemia, unspecified Status: Acute Assessment and Plan: Likely anemia from his chronic infection. H/H 10.5/33% with normal MCV. He needs iron panel for baseline evaluation. Plan He is stable for discharge. His CXR today November 21 shows decrease in size of his Right cavitary lesion, and this is expected to continue to decreased in size with oral antibiotics for 2 more weeks. follow up in pulmonary office. Subjective Date/time seen: 11/21/24Tuesday 12: 17:34 Interval history: 11/21/24 noon; he is walking in his room, room air, wants to go home. White blood cell count is normal for the first time since admission, today is 9.3. He had a swallow study yesterday which was normal. He is not having fevers. He wants to leave, has a job that he wants to return to. CXR today November 21 shows small decrease in size of the right cavitary lesion. 11/18/2024; new consult; Jaredvernell Meraz is a 49-year-old man admitted with right sided pneumonia with a pleural effusion, 8.4 x 3.9 cm. This RUL lateral consolidation with air fluid levels has increased in size over the last 2 days with increased size of a right pleural effusion. He is now on ceftriaxone 1 g daily, Vancomycin and Flagyl 500 mg IV Q 8 hr. He has had borderline diabetes for years, checks his glucose at times. He came to the ER on November 15, had a chest CT then left AMA because he felt like smoking. After the CTA was interpreted, the doctor called the patient to tell him to return due to the severity of the images showing a right upper lobe cavitary lesions 3.3 x 6.6 x 5.5 cm, which has increased in size on each subsequent CXR. He is asking when he can go home. I showed him the images of his CXR with the increase in size of the RUL lesion with the radiologist's measurements, and told him that this is serious, he cannot go at least for several days and with response to antibiotics. He has had blood cultures, results are pending. He does not have sputum to submit. His QuantiFERON gold is pending. He has not travelled recently.. He developed right sided chest pain with coughing about a month ago. He continues to cough, however does not expectorate sputum. He is short of breath which he attributes to smoking. He cannot tell me whether or not he is more short of breath recently. He lives with his girlfriend Wanda ([phone]) and his son. For the last few months, he has been donating plasma twice a week. He recently started working at [email or web address] 2 shifts a week, has been out of work for a long time before getting this job. He denies having fevers, chills, decreased appetite, weight loss, although he does tell me that he is tired and fatigued. His sleep is poor due to being in pain on his right side due to coughing. He has not had lung infections in the past. He has not been around anyone with coughing or shortness of breath. He does not drink alcohol. He has no teeth on his upper jaw, and has 4 teeth on his lower jaw, none of these teeth are causing him pain. He vomited 3 days ago, one episode, did not choke. He cannot recall any associated symptoms, does not recall if he had abdominal pain with vomiting. He cannot recall when the last time he vomited before 3 days ago, tells me that he vomits at times, he is short of breath with exertion however cannot tell me how much walking causes him to rest. He attributes most of his symptoms to smoking. He had a general check up with is primary care doctor, Harriet Johnson in [place] a few weeks ago, nothing reportable found at this visit. He does not use recreational substances, does not have any HIV risk factors such as sex with men, use of IV substances, no incarceration, no exposure to anyone who he knows has tuberculosis. His mother has been for years, cause unknown. Tobacco: 1.5 ppd, started smoking in his late teens, 39 pack years. Work: He recently started working at [email or web address] 2 shifts a week. He has been donating plasma two times a week for a few months. He cannot tell me what he did for week in the past. PMH: bipolar disorder, 39 pack per year smoking history with continued active tobacco use, essential hypertension and type 2 diabetes mellitus on oral medications. DATA: * wbc 12.5 k November 16 with left shift 81% neutrophils; hemoglobin 10.5 g per dL; hematocrit 33%; MCV 85.8; platelets 440 k. sodium 135 potassium 3.5 chloride 101 carbon dioxide 23 BUN 4 creatinine 0.38, glucose 181. Glucose was greater than 500 on November 17. MRSA nasal swab negative. Serologies negative for influenza a, influenza B, SARS-CoV-2 RNA and RSV. Bilirubin 0.4, AST 20, ALT 10, alkaline phosphatase 71. Protein 6.0, albumin 3.0, decreased. * Urine drug screen negative * 11/16/24 CXR; IMPRESSION: Findings suggesting necrotizing pneumonia within the right upper lobe, an interval change from prior. * 11/16/24 CTA; Findings: Right hilar lymphadenopathy present, measuring up to 2.3 cm in diameter. There is no filling defect; no PE; No aortic dissection, aneurysm, or pericardial effusion. Small right pleural effusion present. No left pleural effusion. There is extensive consolidation in the lateral right upper lobe with areas of fluid and air within the consolidation, compatible with presumed chronic change and developing cavitation. Left lung clear. Images through the upper abdomen reveal no abnormalities.Impression: No evidence of pulmonary embolus, aortic dissection, or aortic aneurysm. Extensive probable necrotizing pneumonia in the lateral right upper lobe. Underlying neoplasm felt less likely, though not completely excluded. Right hilar lymphadenopathy, presumably reactive. Small right pleural effusion. * 11/16/24 CXR; FINDINGS Re-demonstration of a large right-sided infiltrate with air-fluid levels increased in size from prior examination, 8.4 x 5.9 cm (cranial to caudal and medial to lateral dimension). Interval development of a moderate right-sided pleural effusion, not present on the previous examination. IMPRESSION: Re-demonstration of necrotizing pneumonia, increased in size from previous examination, now with a right-sided pleural effusion. * 11/18/2024 CXR; Interval increase in size of the focus of necrotizing pneumonia within the right upper lobe measuring 8.7 x 6.9 cm (compared with 8.4 x 5.9 cm on the previous study performed 2 days earlier). Interval increase in the size of the right-sided pleural effusion when compared with previous study performed 2 days earlier. The left hemithorax remains clear. IMPRESSION: Interval increase in size of the right-sided necrotizing pneumonia with interval increase in the right-sided pleural effusion, when compared with previous examination performed approximately 2 days earlier. Review of Systems 2 Review of Systems: All systems reviewed & are unremarkable except as noted in HPI and below Exam 2 Narrative: GEN: Alert, oriented, chronically ill appearing. He is standing in his room, room air, not in distress. HEENT: pupils are equal, EOMI, symmetrical face; oral membranes moist NECK: Trachea is midline, no lymphadenopathy. CHEST: Equal air entry, symmetric excursion, decreased breath sounds without wheezing. CV: Regular S1S2 no m/g/r ABD : (+) bowel sounds, soft. Extremities : no clubbing, cyanosis, or edema PSYCH: Speech is normal, gait is normal. Objective Data Vital Signs Vital Signs: Vital Signs - 24 hr 11/18/24 20:07 11/18/24 20:09 11/18/24 20:15 Temperature Pulse Rate 75 78 Respiratory Rate 20 18 Blood Pressure Pulse Oximetry 95 Oxygen Delivery Room Air 05/25/25 21:40 11/18/24 22:00 11/19/24 04:00 Temperature 36.6 C 37.2 C Pulse Rate 82 69 71 Respiratory Rate 18 16 Blood Pressure 128/82 115/81 Pulse Oximetry 98 97 Oxygen Delivery 11/19/24 10:15 11/19/24 13:19 11/19/24 13:19 Temperature Pulse Rate 76 Respiratory Rate 16 Blood Pressure Pulse Oximetry 96 94 Oxygen Delivery Room Air Room Air 11/19/24 13:25 11/19/24 14:00 Temperature 36.6 C Pulse Rate 84 73 Respiratory Rate 16 16 Blood Pressure 104/79 Pulse Oximetry 96 Oxygen Delivery Intake/Output Intake/Output: Intake & Output 11/16/24 11/17/24 11/18/24 11/19/24 23:59 23:59 23:59 23:59 Intake Total 1550 6290 4150 3580 Output Total 500 500 700 Balance 1050 5790 4150 2880 Meds/Results Medications: Active Medications Generic Name Dose Route Start Last Admin Trade Name Freq PRN Reason Stop Dose Admin Acetaminophen 650 mg 11/17/24 07:50 Acetaminophen 325 Mg Tablet PO Q4H PRN Mild Pain (1-3) or Fever Albuterol/Ipratropium 3 ml 11/17/24 08:00 11/19/24 13:18 Ipratropium 0.5 Mg/Albuterol Sulfate 2.5 Mg Ampul.Neb 3 Ml INHALATION 3 ml Q6HRT KADEN Administration Amlodipine Besylate 10 mg 11/17/24 21:00 11/18/24 21:40 Amlodipine Besylate 10 Mg Tablet PO 10 mg HS KADEN Administration Aripiprazole 15 mg 11/17/24 21:00 11/18/24 21:38 Aripiprazole 5 Mg Tablet PO 15 mg HS KADEN Administration Benztropine Mesylate 1 mg 11/17/24 21:00 11/18/24 21:38 Benztropine Mesylate 1 Mg Tablet PO 1 mg HS KADEN Administration Dextrose 12.5 gm 11/17/24 07:28 Dextrose 50% 25 Gm/50 Ml Syringe IV PUSH PRN PRN Hypoglycemia Protocol Divalproex Sodium 250 mg 11/17/24 07:15 11/19/24 13:[address] 250 Mg Tabec PO 250 mg Q8HR KADEN Administration Empagliflozin 25 mg 11/17/24 21:00 11/18/24 21:41 Empagliflozin 25 Mg Tablet PO 25 mg HS KADEN Administration Enoxaparin Sodium 40 mg 11/17/24 09:00 11/19/24 10:14 Enoxaparin 40 Mg/0.4 Ml Syringe SUB-Q 40 mg DAILY KADEN Administration Fluoxetine HCl 40 mg 11/17/24 21:00 11/18/24 21:39 Fluoxetine Hcl 20 Mg Capsule PO 40 mg HS KADEN Administration Gabapentin 300 mg 11/17/24 21:00 11/18/24 21:41 Gabapentin 300 Mg Capsule PO 300 mg HS KADEN Administration Glucagon 1 mg 11/17/24 07:28 Glucagon For Inj 1 Mg Vial IM PRN PRN Hypoglycemia Protocol Glucose 15 gm 11/17/24 07:28 Glucose Oral Gel 15 Gm Of Glucse In 37.5 Gm Tube PO PRN PRN Hypoglycemia Protocol Dextrose 1,000 mls @ 100 mls/hr 11/17/24 07:28 Dextrose 5% 1,000 Ml IVPB PRN PRN Hypoglycemia Protocol Metronidazole 500 mg in 100 mls @ 100 mls/hr 11/18/24 22:00 11/19/24 13:58 Flagyl 500 Mg/Iso Soln 100 Ml IVPB 100 mls/hr Q8H KADEN Administration Levofloxacin/Dextrose 750 mg in 150 mls @ 100 mls/hr 11/18/24 21:00 11/18/24 23:15 Levaquin 750 Mg/D5w 150 Ml IVPB Infused Q24H KADEN Infusion Vancomycin HCl 2,000 mg in 500 mls @ 250 mls/hr 11/19/24 09:00 11/19/24 17:07 Vancomycin 2,000 Mg/Ns 500 Ml IVPB 250 mls/hr Q8H KADEN Administration Insulin Aspart 3 - 6 units 11/17/24 08:00 11/19/24 14:00 Insulin Aspart (*Bkc) 100 Units/Ml SUB-Q Not Given TIDWM KADEN Protocol Ketorolac Tromethamine 15 mg 11/17/24 07:50 11/19/24 14:01 Ketorolac 15 Mg/Ml Vial (*Bkc) IV PUSH 15 mg Q6H PRN Administration Pain Rated 7-10 Levetiracetam 500 mg 11/17/24 09:00 11/19/24 10:12 Levetiracetam 500 Mg Tablet PO 500 mg Q12HR KADEN Administration Losartan Potassium 100 mg 11/17/24 21:00 11/18/24 21:38 Losartan Potassium 100 Mg Tablet PO 100 mg HS KADEN Administration Metformin HCl 1,000 mg 11/17/24 08:00 11/19/24 17:06 Metformin Hcl Xr 500 Mg Tab.Sr.24h PO 1,000 mg BIDWM KADEN Administration Montelukast Sodium 10 mg 11/17/24 21:00 11/18/24 21:38 Montelukast Sodium 10 Mg Tablet PO 10 mg HS KADEN Administration Nicotine 1 patch 11/17/24 09:00 11/19/24 10:12 Nicotine (*Pbkc) 21 Mg Patch TRANSDERM 1 patch DAILY KADEN Administration Nicotine Polacrilex 2 mg 11/17/24 07:52 11/19/24 10:15 Nicotine (*Pbkc) 2 Mg Gum PO 2 mg Q4H PRN Administration Nicotine Cravings Perflutren Lipid Microsphere 0 ml 11/18/24 08:52 Perflutren Lipid Microspheres 1.5 Ml Vial Diluted To 10 Ml Total Volume IV PUSH 11/21/24 08:52 ONCE PRN adequate visualization Protocol Propranolol HCl 20 mg 11/17/24 21:00 11/18/24 21:40 Propranolol Hcl 20 Mg Tablet PO 20 mg HS KADEN Administration Rosuvastatin Calcium 20 mg 11/17/24 21:00 11/18/24 21:41 Rosuvastatin 10 Mg Tablet PO 20 mg HS KADEN Administration Radiology Results: ITS Impressions Chest X-Ray 11/18/24 09:30 IMPRESSION: Interval increase in size of the right-sided necrotizing pneumonia with interval increase in the right-sided pleural effusion, when compared with previous examination performed approximately 2 days earlier. Chest X-ray 11/21/24 13:23 Redemonstration of a density within the right upper lobe with air-fluid levels, minimally decreased in size from previous examination now measuring 7.7 x 6.2 cm (compared with 8.7 x 6.9 cm on the previous study). Redemonstration of a right-sided pleural effusion, unchanged in size. The left hemithorax remains clear. IMPRESSION: Minimal decrease in size of the right-sided pleural effusion and the right lung fluid collection with air-fluid levels, as detailed above Labs Labs: Laboratory Results - last 24 hr 11/18/24 11/19/24 11/19/24 22:41 07:54 08:18 WBC 10.6 H RBC 3.81 L Hgb 10.6 L Hct 33.1 L MCV 86.9 MCH 27.8 MCHC 32.0 RDW 13.0 Plt Count 441 H MPV 8.1 Immature Gran % (Auto) 0.6 H Neut % (Auto) 79.9 H Lymph % (Auto) 10.4 L [place] % (Auto) 7.9 Eos % (Auto) 0.9 Baso % (Auto) 0.3 Lymph # (Auto) 1.10 [place] # (Auto) 0.8 H Eos # (Auto) 0.1 Baso # (Auto) 0.0 Abs Immat Gran (auto) 0.06 H Absolute Neuts (auto) 8.5 H Absolute Nucleated RBC 0.000 Nucleated RBC % 0.0 Sodium 136 L Potassium 3.6 Chloride 103 Carbon Dioxide 26 Anion Gap 7 BUN 4 L Creatinine 0.40 L Estim Creat Clear Calc 171 Estimated GFR > 60 Glucose 111 H POC Capillary Glucose 238 H 110 H Calcium 8.4 Iron 43 L TIBC 197 L % Saturation 22 Ferritin 167.00 Total Bilirubin 0.3 AST 23 ALT 8 Alkaline Phosphatase 67 Total Protein 6.0 L Albumin 2.9 L Vancomycin Trough 12.0
[2024-11-19 18:08] LABS: Glucose Point of Care 150 mg/dl (65-105)
[2024-11-19] MEDS: BENZTROPINE MESYLATE 1 MG TABLET PO (20:36)
[2024-11-19] MEDS: EMPAGLIFLOZIN 25 MG TABLET PO (20:36)
[2024-11-19] MEDS: FLUoxetine HCL 20 MG CAPSULE 40 MG PO (20:37)
[2024-11-19] MEDS: ARIPiprazole 5 MG TABLET 15 MG PO (20:37)
[2024-11-19] MEDS: ROSUVASTATIN 10 MG TABLET 20 MG PO (20:37)
[2024-11-19] MEDS: LOSARTAN POTASSIUM 100 MG TABLET PO (20:37)
[2024-11-19] MEDS: MONTELUKAST SODIUM 10 MG TABLET PO (20:37)
[2024-11-19] MEDS: amLODIPine BESYLATE 10 MG TABLET PO (20:38)
[2024-11-19] MEDS: PROPRANOLOL HCL 20 MG TABLET PO (20:38)
[2024-11-19] MEDS: GABAPENTIN 300 MG CAPSULE PO (20:38)
[2024-11-19] MEDS: levoFLOXacin 750 MG/D5W 150 ML 750 MG/150 ML BAG 100 MG IVPB (20:47)
[2024-11-19 20:57] LABS: Glucose Point of Care 198 mg/dl (65-105)
[2024-11-20] VITALS (12 sets, daily range): BP systolic 106–118; BP diastolic 67–76; PULSE 63–77; RESP 16–20; TEMP 35.9–36.9; O2SAT 94–98
[2024-11-20] MEDS: VANCOMYCIN 2,000 MG/NS 500 ML 2,000 MG/500 ML BAG 250 MG IVPB ×3 (00:56→18:44)
[2024-11-20] MEDS: IPRATROPIUM 0.5 MG/ALBUTEROL SULFATE 2.5 MG AMPUL.NEB 3 ML INHALATION ×3 (01:36→19:55)
[2024-11-20] MEDS: DIVALPROEX SODIUM DR 250 MG TABEC PO ×3 (05:50→20:31)
[2024-11-20] MEDS: metroNIDAZOLE 500 MG/ISO 100ML 500 MG/100 ML BAG 100 MG IVPB ×3 (05:51→23:23)
[2024-11-20 08:06] LABS: Basophils Percent Auto 0.3 % (0.2-1.2); Eosinophils Absolute Auto 0.1 K/mm3 (0-0.3); Eosinophils Percent Auto 0.9 % (0-4.4); Hemoglobin 10.8 g/dL (14.0-18.0); Immature Granulocyte Absolute 0.18 K/mm3 (0.00-0.031); Immature Granulocyte Percent A 1.6 % (0-0.5); Lymphocytes Percent Auto 10.4 % (18.3-44.2); Mean Corpuscular HGB Conc 31.8 g/dl (32-36); Mean Corpuscular Hemoglobin 27.6 pg (26-34); Mean Corpuscular Volume 86.7 fl (80-100); Mean Platelet Volume 8.1 fl (7.4-10.4); Monocytes Absolute Auto 0.8 K/mm3 (0.1-0.6); Neutrophils Absolute Auto 9.2 K/mm3 (1.3-6.7); Neutrophils Percent Auto 79.8 % (45.5-73.1); Platelet Count Result 453 k/mm3 (150-375); Red Blood Count 3.92 M/mm3 (4.6-6.20); Red Cell Distribution Width 12.9 % (11.5-14.5); White Blood Count 11.5 K/mm3 (4.5-10.0)
[2024-11-20 08:16] LABS: Alanine Aminotransferase 8 U/L (6-50); Alkaline Phosphatase 66 U/L (38-126); Anion Gap 10 mmol/L (4-12); Aspartate Amino Transferase 24 U/L (17-59); Bilirubin,Total 0.3 mg/dL (0.2-1.3); Blood Urea Nitrogen 6 mg/dL (9-20); Calcium 8.4 mg/dL (8.4-10.2); Carbon Dioxide 24 mmol/L (22-30); Chloride 103 mmol/L (98-107); Estimated CRCL calculation 161 ml/min; Estimated Glomerular Filt Rate > 60; Glucose 100 mg/dL (65-110); Potassium 3.8 mmol/L (3.4-5.0); Sodium 137 mmol/L (137-145)
[2024-11-20 08:16] LABS: Glucose Point of Care 100 mg/dl (65-105)
[2024-11-20] MEDS: NICOTINE (*PBKC) 21 MG PATCH 1 PATCH TRANSDERM (09:00)
[2024-11-20] MEDS: ENOXAPARIN 40 MG/0.4 ML SYRINGE SUB-Q (09:00)
[2024-11-20] MEDS: levETIRAcetam 500 MG TABLET PO ×2 (09:01→20:27)
[2024-11-20] MEDS: metFORMIN HCL XR 500 MG TAB.SR.24H 1000 MG PO ×2 (09:01→17:36)
[2024-11-20] MEDS: NICOTINE (*PBKC) 2 MG GUM PO ×3 (09:02→17:37)
[2024-11-20 09:52] LABS: Vancomycin Trough 17.4 ug/mL (10.0-20.0)
--- NOTE | 2024-11-20 10:57 | P.PNIM_ITS ---
Progress Note: A&P Assessment and Plan (1) Necrotizing pneumonia: Code(s): J85.0 - Gangrene and necrosis of lung Status: Acute Assessment and Plan: * Patient has cavitary lesions suspicious for necrotizing pneumonia verses mass with necrosis with necrotizing pneumonia being more likely. * Chest X-ray showed:FINDINGS Remonstration of a large right-sided infiltrate with air-fluid levels increased in size from prior examination. Measuring 8.4 x 5.9 cm (cranial to caudal and medial to lateral dimension). Interval development of a moderate right-sided pleural effusion, not present on the previous examination. The cardiomediastinal silhouette is unremarkable. The left hemithorax is clear. IMPRESSION: Redemonstration of necrotizing pneumonia, increased in size from previous examination, now with a right-sided pleural effusion. * The patient does endorse recent weight loss. He denies any hemoptysis or known ill contacts. * Levofloxacin 750 mg IVPB daily, Metronidazole 500 mg IVPB q8, and Vancomycin 2,000 mg IVPB q8. * Duonebs q6. * Sa02 94% RA. * Respiratory panel negative. * Urine drug screen negative. * QuantiFERON gold- pending. * Pulmonology consulted, appreciate recommendations. * Chest X-ray: FINDINGS The cardiomediastinal silhouette is unremarkable. Interval increase in size of the focus of necrotizing pneumonia within the right upper lobe measuring 8.7 x 6.9 cm (compared with 8.4 x 5.9 cm on the previous study performed 2 days earlier). Interval increase in the size of the right-sided pleural effusion when compared with previous study performed 2 days earlier. The left hemithorax remains clear. IMPRESSION: Interval increase in size of the right-sided necrotizing pneumonia with interval increase in the right-sided pleural effusion, when compared with previous examination performed approximately 2 days earlier. * Echocardiogram ordered. * WBC 12.0>10.6>11.5. * Cornet Valve. * Modified barium swallow- Patient tolerated regular consistency oral feedings in the upright position. * Check urine antigens for Strep pneumoniae and Legionella-pending. * Respiratory Pathogen Panel Routine pending. (2) COPD (chronic obstructive pulmonary disease): Qualifiers: COPD type: COPD with acute lower respiratory infection Qualified Code(s): J44.0 - Chronic obstructive pulmonary disease with (acute) lower respiratory infection Code(s): J44.9 - Chronic obstructive pulmonary disease, unspecified Status: Acute Assessment and Plan: * Duoneb q6. * Montelukast 10 mg PO HS. * Sa02 97% RA. * Pulmonology consulted. * FINDINGS The cardiomediastinal silhouette is unremarkable. Interval increase in size of the focus of necrotizing pneumonia within the right upper lobe measuring 8.7 x 6.9 cm (compared with 8.4 x 5.9 cm on the previous study performed 2 days earlier). Interval increase in the size of the right-sided pleural effusion when compared with previous study performed 2 days earlier. The left hemithorax remains clear. IMPRESSION: Interval increase in size of the right-sided necrotizing pneumonia with interval increase in the right-sided pleural effusion, when compared with previous examination performed approximately 2 days earlier. (3) Continuous tobacco abuse: Code(s): Z72.0 - Tobacco use Status: Acute Assessment and Plan: * Nicotine patch and nicotine gum to help with nicotine withdrawal symptoms. * The patient is not interested in quitting smoking at this time. * Smoking cessation encouraged. Subjective Date/time seen: 11/20/24 10:57 Interval history: Patient sitting up in bed. Patient reports pain in right chest when he coughs that is a 10 and stabbing. Patient denies shortness of breath, headache, dizziness, nausea, or vomiting. Review of Systems Review of Systems: All systems reviewed & are unremarkable except as noted in HPI and below Exam Const: General: comfortable and no acute distress Resp: Effort & Inspection: normal respiratory effort Auscultation: diminished lung sounds Cardio: Rate: regular rate Rhythm: regular rhythm GI: GI Palp: Yes Soft to palpation Auscultation: normal bowel sounds Neuro: Speech: normal speech Extrem: General: no pedal edema Psych: Mental Status: mental status grossly normal Affect: normal affect Objective Data Vital Signs Vital Signs: Vital Signs - 24 hr 11/19/24 13:19 11/19/24 13:19 11/19/24 13:25 Temperature Pulse Rate 76 84 Respiratory Rate 16 16 Blood Pressure Pulse Oximetry 94 Oxygen Delivery Room Air 11/19/24 14:00 11/19/24 19:48 11/19/24 19:58 Temperature 97.9 F Pulse Rate 73 71 71 Respiratory Rate 16 16 16 Blood Pressure 104/79 Pulse Oximetry 96 Oxygen Delivery 11/19/24 20:00 11/19/24 20:20 11/19/24 20:38 Temperature 96.5 F L Pulse Rate 66 70 Respiratory Rate 28 H Blood Pressure 121/71 Pulse Oximetry 96 95 Oxygen Delivery Room Air 11/20/24 01:36 11/20/24 01:46 11/20/24 04:00 Temperature 96.6 F L Pulse Rate 71 71 63 Respiratory Rate 16 16 20 Blood Pressure 118/76 Pulse Oximetry 98 Oxygen Delivery 11/20/24 06:00 11/20/24 08:27 Temperature 96.6 F L 98.5 F Pulse Rate 63 75 Respiratory Rate 20 16 Blood Pressure 118/76 108/67 Pulse Oximetry 98 97 Oxygen Delivery Intake/Output Intake/Output: Intake & Output 11/17/24 11/18/24 11/19/24 11/20/24 23:59 23:59 23:59 23:59 Intake Total 6290 4150 6720 240 Output Total 500 700 Balance 5790 4150 6020 240 Meds/Results Medications: Active Medications Generic Name Dose Route Start Last Admin Trade Name Freq PRN Reason Stop Dose Admin Acetaminophen 650 mg 11/17/24 07:50 Acetaminophen 325 Mg Tablet PO Q4H PRN Mild Pain (1-3) or Fever Albuterol/Ipratropium 3 ml 11/17/24 08:00 11/20/24 09:44 Ipratropium 0.5 Mg/Albuterol Sulfate 2.5 Mg Ampul.Neb 3 Ml INHALATION Not Given Q6HRT KADEN Amlodipine Besylate 10 mg 11/17/24 21:00 11/19/24 20:38 Amlodipine Besylate 10 Mg Tablet PO 10 mg HS KADEN Administration Aripiprazole 15 mg 11/17/24 21:00 11/19/24 20:37 Aripiprazole 5 Mg Tablet PO 15 mg HS KADEN Administration Benztropine Mesylate 1 mg 11/17/24 21:00 11/19/24 20:36 Benztropine Mesylate 1 Mg Tablet PO 1 mg HS KADEN Administration Dextrose 12.5 gm 11/17/24 07:28 Dextrose 50% 25 Gm/50 Ml Syringe IV PUSH PRN PRN Hypoglycemia Protocol Divalproex Sodium 250 mg 11/17/24 07:15 11/20/24 05:[address] 250 Mg Tabec PO 250 mg Q8HR KADEN Administration Empagliflozin 25 mg 11/17/24 21:00 11/19/24 20:36 Empagliflozin 25 Mg Tablet PO 25 mg HS KADEN Administration Enoxaparin Sodium 40 mg 11/17/24 09:00 11/20/24 09:00 Enoxaparin 40 Mg/0.4 Ml Syringe SUB-Q 40 mg DAILY KADEN Administration Fluoxetine HCl 40 mg 11/17/24 21:00 11/19/24 20:37 Fluoxetine Hcl 20 Mg Capsule PO 40 mg HS KADEN Administration Gabapentin 300 mg 11/17/24 21:00 11/19/24 20:38 Gabapentin 300 Mg Capsule PO 300 mg HS KADEN Administration Glucagon 1 mg 11/17/24 07:28 Glucagon For Inj 1 Mg Vial IM PRN PRN Hypoglycemia Protocol Glucose 15 gm 11/17/24 07:28 Glucose Oral Gel 15 Gm Of Glucse In 37.5 Gm Tube PO PRN PRN Hypoglycemia Protocol Dextrose 1,000 mls @ 100 mls/hr 11/17/24 07:28 Dextrose 5% 1,000 Ml IVPB PRN PRN Hypoglycemia Protocol Metronidazole 500 mg in 100 mls @ 100 mls/hr 11/18/24 22:00 11/20/24 05:51 Flagyl 500 Mg/Iso Soln 100 Ml IVPB 100 mls/hr Q8H KADEN Administration Levofloxacin/Dextrose 750 mg in 150 mls @ 100 mls/hr 11/18/24 21:00 11/19/24 20:47 Levaquin 750 Mg/D5w 150 Ml IVPB 100 mls/hr Q24H KADEN Administration Vancomycin HCl 2,000 mg in 500 mls @ 250 mls/hr 11/20/24 11:00 11/20/24 10:27 Vancomycin 2,000 Mg/Ns 500 Ml IVPB 250 mls/hr Q8H KADEN Administration Insulin Aspart 3 - 6 units 11/17/24 08:00 11/20/24 08:22 Insulin Aspart (*Bkc) 100 Units/Ml SUB-Q Not Given TIDWM KADEN Protocol Ketorolac Tromethamine 15 mg 11/17/24 07:50 11/19/24 14:01 Ketorolac 15 Mg/Ml Vial (*Bkc) IV PUSH 15 mg Q6H PRN Administration Pain Rated 7-10 Levetiracetam 500 mg 11/17/24 09:00 11/20/24 09:01 Levetiracetam 500 Mg Tablet PO 500 mg Q12HR KADEN Administration Losartan Potassium 100 mg 11/17/24 21:00 11/19/24 20:37 Losartan Potassium 100 Mg Tablet PO 100 mg HS KADEN Administration Metformin HCl 1,000 mg 11/17/24 08:00 11/20/24 09:01 Metformin Hcl Xr 500 Mg Tab.Sr.24h PO 1,000 mg BIDWM KADEN Administration Montelukast Sodium 10 mg 11/17/24 21:00 11/19/24 20:37 Montelukast Sodium 10 Mg Tablet PO 10 mg HS KADEN Administration Nicotine 1 patch 11/17/24 09:00 11/20/24 09:00 Nicotine (*Pbkc) 21 Mg Patch TRANSDERM 1 patch DAILY KADEN Administration Nicotine Polacrilex 2 mg 11/17/24 07:52 11/20/24 09:02 Nicotine (*Pbkc) 2 Mg Gum PO 2 mg Q4H PRN Administration Nicotine Cravings Perflutren Lipid Microsphere 0 ml 11/18/24 08:52 Perflutren Lipid Microspheres 1.5 Ml Vial Diluted To 10 Ml Total Volume IV PUSH 11/21/24 08:52 ONCE PRN adequate visualization Protocol Propranolol HCl 20 mg 11/17/24 21:00 11/19/24 20:38 Propranolol Hcl 20 Mg Tablet PO 20 mg HS KADEN Administration Rosuvastatin Calcium 20 mg 11/17/24 21:00 11/19/24 20:37 Rosuvastatin 10 Mg Tablet PO 20 mg HS KADEN Administration Radiology Results: ITS Impressions Chest X-Ray 11/18/24 09:30 IMPRESSION: Interval increase in size of the right-sided necrotizing pneumonia with interval increase in the right-sided pleural effusion, when compared with previous examination performed approximately 2 days earlier. Labs Labs: Laboratory Results - last 24 hr 11/19/24 11/19/24 11/19/24 11:50 16:52 20:52 WBC RBC Hgb Hct MCV MCH MCHC RDW Plt Count MPV Immature Gran % (Auto) Neut % (Auto) Lymph % (Auto) [place] % (Auto) Eos % (Auto) Baso % (Auto) Lymph # (Auto) [place] # (Auto) Eos # (Auto) Baso # (Auto) Abs Immat Gran (auto) Absolute Neuts (auto) Absolute Nucleated RBC Nucleated RBC % Sodium Potassium Chloride Carbon Dioxide Anion Gap BUN Creatinine Estim Creat Clear Calc Estimated GFR Glucose POC Capillary Glucose 103 150 H 198 H Calcium Total Bilirubin AST ALT Alkaline Phosphatase Total Protein Albumin Vancomycin Trough 11/20/24 11/20/24 07:38 08:14 WBC 11.5 H RBC 3.92 L Hgb 10.8 L Hct 34.0 L MCV 86.7 MCH 27.6 MCHC 31.8 L RDW 12.9 Plt Count 453 H MPV 8.1 Immature Gran % (Auto) 1.6 H Neut % (Auto) 79.8 H Lymph % (Auto) 10.4 L [place] % (Auto) 7.0 Eos % (Auto) 0.9 Baso % (Auto) 0.3 Lymph # (Auto) 1.20 [place] # (Auto) 0.8 H Eos # (Auto) 0.1 Baso # (Auto) 0.0 Abs Immat Gran (auto) 0.18 H Absolute Neuts (auto) 9.2 H Absolute Nucleated RBC 0.000 Nucleated RBC % 0.0 Sodium 137 Potassium 3.8 Chloride 103 Carbon Dioxide 24 Anion Gap 10 BUN 6 L Creatinine 0.43 L Estim Creat Clear Calc 161 Estimated GFR > 60 Glucose 100 POC Capillary Glucose 100 Calcium 8.4 Total Bilirubin 0.3 AST 24 ALT 8 Alkaline Phosphatase 66 Total Protein 6.0 L Albumin 3.0 L Vancomycin Trough 17.4 Quality VTE Prophylaxis VTE prophylaxis: pharmacologic ordered (Lovenox 40 mg subQ daily.)
[2024-11-20 11:47] LABS: Glucose Point of Care 235 mg/dl (65-105)
[2024-11-20] MEDS: INSULIN ASPART (*BKC) 100 UNITS/ML SUB-Q (12:54)
--- NOTE | 2024-11-20 14:22 | PCSTNOTE ---
Please refer to the Modified Barium Swallow Evaluation in the EMR.
[2024-11-20 16:38] LABS: Glucose Point of Care 133 mg/dl (65-105)
[2024-11-20] MEDS: ARIPiprazole 5 MG TABLET 15 MG PO (20:26)
[2024-11-20] MEDS: LOSARTAN POTASSIUM 100 MG TABLET PO (20:27)
[2024-11-20] MEDS: GABAPENTIN 300 MG CAPSULE PO (20:27)
[2024-11-20] MEDS: PROPRANOLOL HCL 20 MG TABLET PO (20:27)
[2024-11-20] MEDS: MONTELUKAST SODIUM 10 MG TABLET PO (20:27)
[2024-11-20] MEDS: amLODIPine BESYLATE 10 MG TABLET PO (20:27)
[2024-11-20] MEDS: FLUoxetine HCL 20 MG CAPSULE 40 MG PO (20:27)
[2024-11-20] MEDS: BENZTROPINE MESYLATE 1 MG TABLET PO (20:27)
[2024-11-20] MEDS: ROSUVASTATIN 10 MG TABLET 20 MG PO (20:27)
[2024-11-20] MEDS: EMPAGLIFLOZIN 25 MG TABLET PO (20:27)
[2024-11-20] MEDS: levoFLOXacin 750 MG/D5W 150 ML 750 MG/150 ML BAG 100 MG IVPB (21:47)
[2024-11-21] VITALS (8 sets, daily range): BP systolic 118–128; BP diastolic 76–79; PULSE 61–79; RESP 18–20; TEMP 36.1–36.3; O2SAT 95–96
[2024-11-21] MEDS: IPRATROPIUM 0.5 MG/ALBUTEROL SULFATE 2.5 MG AMPUL.NEB 3 ML INHALATION ×3 (02:14→14:48)
[2024-11-21] MEDS: VANCOMYCIN 2,000 MG/NS 500 ML 2,000 MG/500 ML BAG 250 MG IVPB (02:53)
[2024-11-21] MEDS: DIVALPROEX SODIUM DR 250 MG TABEC PO ×2 (05:12→14:00)
[2024-11-21] MEDS: metroNIDAZOLE 500 MG/ISO 100ML 500 MG/100 ML BAG 100 MG IVPB (05:16)
[2024-11-21 05:50] LABS: Basophils Percent Auto 0.4 % (0.2-1.2); Eosinophils Absolute Auto 0.1 K/mm3 (0-0.3); Eosinophils Percent Auto 1.4 % (0-4.4); Hematocrit 33.5 % (42.0-52.0); Hemoglobin 10.7 g/dL (14.0-18.0); Immature Granulocyte Absolute 0.08 K/mm3 (0.00-0.031); Immature Granulocyte Percent A 0.9 % (0-0.5); Lymphocytes Percent Auto 16.2 % (18.3-44.2); Mean Corpuscular HGB Conc 31.9 g/dl (32-36); Mean Corpuscular Hemoglobin 27.4 pg (26-34); Mean Corpuscular Volume 85.7 fl (80-100); Mean Platelet Volume 7.8 fl (7.4-10.4); Monocytes Absolute Auto 0.8 K/mm3 (0.1-0.6); Monocytes Percent Auto 9.1 % (2.6-8.5); Neutrophils Absolute Auto 6.7 K/mm3 (1.3-6.7); Platelet Count Result 448 k/mm3 (150-375); Red Blood Count 3.91 M/mm3 (4.6-6.20); Red Cell Distribution Width 13.1 % (11.5-14.5); White Blood Count 9.3 K/mm3 (4.5-10.0)
[2024-11-21 05:59] LABS: Glucose Point of Care 181 mg/dl (65-105)
[2024-11-21 06:05] LABS: Alanine Aminotransferase 9 U/L (6-50); Albumin Level 3.1 g/dL (3.5-5.1); Alkaline Phosphatase 65 U/L (38-126); Anion Gap 10 mmol/L (4-12); Aspartate Amino Transferase 21 U/L (17-59); Bilirubin,Total 0.2 mg/dL (0.2-1.3); Blood Urea Nitrogen 5 mg/dL (9-20); Calcium 8.4 mg/dL (8.4-10.2); Carbon Dioxide 23 mmol/L (22-30); Chloride 102 mmol/L (98-107); Estimated CRCL calculation 171 ml/min; Estimated Glomerular Filt Rate > 60; Glucose 111 mg/dL (65-110); Potassium 3.9 mmol/L (3.4-5.0); Sodium 135 mmol/L (137-145)
[2024-11-21 07:52] LABS: Glucose Point of Care 105 mg/dl (65-105)
[2024-11-21] MEDS: metFORMIN HCL XR 500 MG TAB.SR.24H 1000 MG PO (08:49)
[2024-11-21] MEDS: levETIRAcetam 500 MG TABLET PO (08:49)
[2024-11-21] MEDS: ENOXAPARIN 40 MG/0.4 ML SYRINGE SUB-Q (08:49)
--- NOTE | 2024-11-21 11:07 | P.DS_ITS ---
DS: Admitting Diagnosis Discharge Date 11/21/2024 0845 Admitting Diagnosis Necrotizing pneumonia with a lung abscess DS: Discharge Diagnosis Discharge Diagnosis (1) Necrotizing pneumonia: Code(s): J85.0 - Gangrene and necrosis of lung Status: Acute Assessment and Plan: * Patient has cavitary lesions suspicious for necrotizing pneumonia verses mass with necrosis with necrotizing pneumonia being more likely. * Chest X-ray showed:FINDINGS Remonstration of a large right-sided infiltrate with air-fluid levels increased in size from prior examination. Measuring 8.4 x 5.9 cm (cranial to caudal and medial to lateral dimension). Interval development of a moderate right-sided pleural effusion, not present on the previous examination. The cardiomediastinal silhouette is unremarkable. The left hemithorax is clear. IMPRESSION: Redemonstration of necrotizing pneumonia, increased in size from previous examination, now with a right-sided pleural effusion. * The patient does endorse recent weight loss. He denies any hemoptysis or known ill contacts. * Levofloxacin 750 mg IVPB daily, Metronidazole 500 mg IVPB q8, and Vancomycin 2,000 mg IVPB q8. * Duonebs q6. * Sa02 94% RA. * Respiratory panel negative. * Urine drug screen negative. * QuantiFERON gold- pending. * Pulmonology consulted, appreciate recommendations. * Chest X-ray: FINDINGS The cardiomediastinal silhouette is unremarkable. Interval increase in size of the focus of necrotizing pneumonia within the right upper lobe measuring 8.7 x 6.9 cm (compared with 8.4 x 5.9 cm on the previous study performed 2 days earlier). Interval increase in the size of the right-sided pleural effusion when compared with previous study performed 2 days earlier. The left hemithorax remains clear. IMPRESSION: Interval increase in size of the right-sided necrotizing pneumonia with interval increase in the right-sided pleural effusion, when compared with previous examination performed approximately 2 days earlier. * Echocardiogram ordered. * WBC 12.0>10.6>11.5. * Cornet Valve. * Modified barium swallow- Patient tolerated regular consistency oral feedings in the upright position. * Check urine antigens for Strep pneumoniae and Legionella-pending. * Respiratory Pathogen Panel Routine pending. (2) COPD (chronic obstructive pulmonary disease): Qualifiers: COPD type: COPD with acute lower respiratory infection Qualified Code(s): J44.0 - Chronic obstructive pulmonary disease with (acute) lower respiratory infection Code(s): J44.9 - Chronic obstructive pulmonary disease, unspecified Status: Acute Assessment and Plan: * Duoneb q6. * Montelukast 10 mg PO HS. * Sa02 97% RA. * Pulmonology consulted. * FINDINGS The cardiomediastinal silhouette is unremarkable. Interval increase in size of the focus of necrotizing pneumonia within the right upper lobe measuring 8.7 x 6.9 cm (compared with 8.4 x 5.9 cm on the previous study performed 2 days earlier). Interval increase in the size of the right-sided pleural effusion when compared with previous study performed 2 days earlier. The left hemithorax remains clear. IMPRESSION: Interval increase in size of the right-sided necrotizing pneumonia with interval increase in the right-sided pleural effusion, when compared with previous examination performed approximately 2 days earlier. (3) Continuous tobacco abuse: Code(s): Z72.0 - Tobacco use Status: Acute Assessment and Plan: * Nicotine patch and nicotine gum to help with nicotine withdrawal symptoms. * The patient is not interested in quitting smoking at this time. * Smoking cessation encouraged. DS: Summary Hospital Course Reason for hospitalization: 49-year-old male with past medical history of bipolar disorder, 39 pack per year smoking history with continued active tobacco use, essential hypertension and type 2 diabetes mellitus on oral medications who presented to the ER on the with complaints of right chest pain and flank pain worse with coughing. Patient reports he has a chronic smoker's cough is been going on for quite some time. However he developed right side and flank pain in the lower rib cage that is worse with coughing over the last several weeks. The patient was breathing 35- 40 times a minute in the ER on the and CT had been obtained but the patient did not wait for CT results. He did receive a dose of Rocephin and azithromycin but refused to stay for the CT results. CT returned with a cavitary lesion verses abscess of the right upper lobe with surrounding airspace opacity measuring 3.3 x 6.6 x 5.5 cm. Differential including cavitary pneumonia including possible tuberculosis less likely cavitary neoplasm. On further questioning the patient does report what seems like weight loss but he is nonspecific with his symptoms. He denies any changes in his appetite. He has not been having any fevers or chills. The patient left AMA. After CT results had returned the ER physician was able to reach the patient around 08:00 and encourage the patient come back to the ER. He reports chronic wheezing. He does not feel like his breathing is any worse than is usual. Part of white left the ER against medical advice was because he felt the nicotine patch was not helping him. The patient reports that he checks his glucose is from time to time. He has not checked his glucoses recently to know if he is having any hyperglycemia. Glucoses in the ER were in the low 200s. Hospital Course: Patient was seen by Pulmonary with the patient on Levaquin/vancomycin/Flagyl. Pulmonary is recommended the patient get a long course of antibiotics. Currently patient is doing well and he denies any chest pain, shortness a breath, nausea, vomiting, diarrhea CT showed please is abscess. Chest x-ray today does show that the abscess has decreased in size. Patient will go home on Levaquin, and Flagyl for 3 weeks total 2 weeks will be prescribed. Patient is ready to go. Did collaborate with pulmonary about the patient. Currently patient is stable for discharge and will need to follow up with Pulmonary. Extensive discharge teaching has been given patient does verbalize understanding. Status at Discharge Functional status at discharge: independent ambulation Overall status at discharge: patient is progressing back to baseline Time Spent with Patient Time attestation: Total time spent providing and/or coordinating discharge services: 56 minutes Time spent: Greater than 30 minutes Specific discharge activities: Diagnostic testing, chart review, developing a treatment plan, education, care coordination documentation, physical exam, result review Exam Narrative: General: well-nourished, chronically ill-appearing 49-year-old male, sitting up in bed, comfortable, NARD Neuro: awake, alert and oriented x4, speech clear, no focal neuro deficits noted HEENMT: normocephalic, atraumatic, EOMI, sclerae anicteric, moist oral mucosa Respiratory: Clear to auscultation bilaterally without crackles, rhonchi or wheezes, nonlabored breathing Cardio: regular rate, regular rhythm with S1-S2 Abdomen: nondistended, normoactive bowel sounds, soft, nontender to palpation Extremities: no edema, erythema, or tenderness to palpation, DP pulses 2+ bila terally Skin: no rashes or lesions, warm and dry Psych: appropriate mood and affect, judgment and insight intact DS: Data Data Completed and Pending Labs on day of discharge: Labs from last 24 hours 11/21/24 11/21/24 11/20/24 07:49 05:35 20:26 WBC 9.3 RBC 3.91 L Hgb 10.7 L Hct 33.5 L MCV 85.7 MCH 27.4 MCHC 31.9 L RDW 13.1 Plt Count 448 H MPV 7.8 Immature Gran % (Auto) 0.9 H Neut % (Auto) 72.0 Lymph % (Auto) 16.2 L [place] % (Auto) 9.1 H Eos % (Auto) 1.4 Baso % (Auto) 0.4 Lymph # (Auto) 1.50 [place] # (Auto) 0.8 H Eos # (Auto) 0.1 Baso # (Auto) 0.0 Abs Immat Gran (auto) 0.08 H Absolute Neuts (auto) 6.7 Absolute Nucleated RBC 0.000 Nucleated RBC % 0.0 Sodium 135 L Potassium 3.9 Chloride 102 Carbon Dioxide 23 Anion Gap 10 BUN 5 L Creatinine 0.40 L Estim Creat Clear Calc 171 Estimated GFR > 60 Glucose 111 H POC Capillary Glucose 105 181 H Calcium 8.4 Total Bilirubin 0.2 AST 21 ALT 9 Alkaline Phosphatase 65 Total Protein 6.0 L Albumin 3.1 L 11/20/24 11/20/24 16:32 11:38 WBC RBC Hgb Hct MCV MCH MCHC RDW Plt Count MPV Immature Gran % (Auto) Neut % (Auto) Lymph % (Auto) [place] % (Auto) Eos % (Auto) Baso % (Auto) Lymph # (Auto) [place] # (Auto) Eos # (Auto) Baso # (Auto) Abs Immat Gran (auto) Absolute Neuts (auto) Absolute Nucleated RBC Nucleated RBC % Sodium Potassium Chloride Carbon Dioxide Anion Gap BUN Creatinine Estim Creat Clear Calc Estimated GFR Glucose POC Capillary Glucose 133 H 235 H Calcium Total Bilirubin AST ALT Alkaline Phosphatase Total Protein Albumin Discharge Plan Discharge Attending physician on discharge: Frederick Lizarraga Consulting providers: Makayla Humphrey Discharging Clinician: Parker Maldonado Patient Disposition: Home Activity: may shower, unlimited and as tolerated Diet: gestational diabetic Discharge Instructions: * Take all medications as prescribed even feeling better * Eat well-balanced meals stay hydrated * Take all the antibiotics as prescribed * Follow-up with Pulmonary please call to make an appointment * If you experience any chest pain, shortness a breath, fevers greater than 100.4 or any other worrisome symptoms follow-up with your primary care provider come back to the ED * Follow-up with primary care provider in 1 week * Is been a pleasure taking care of you thank you for using our services Patient Instructions: Antibiotic Form Patient Language: Kyrgyz Stand Alone Forms: General Discharge Information Follow-up/Referrals: Lazaro,Harriet Presley MD [Primary Care Provider] - 1 Week Mkaayla Humphrey MD [Physician] - Call for Appointment Discharge Medications: New metronidazole 500 mg Tablet 500 mg PO Q8HR 14 Days Qty: 42 0RF levofloxacin 750 mg tablet 750 mg PO DAILY 14 Days Qty: 14 0RF Continued ibuprofen 800 mg tablet 800 mg PO DAILY Patient Comments: Takes HS amlodipine 10 mg tablet 10 mg PO DAILY Patient Comments: Takes HS benztropine 1 mg tablet 1 mg PO DAILY Patient Comments: Takes HS gabapentin 300 mg capsule 300 mg PO DAILY Patient Comments: Takes HS montelukast 10 mg tablet 10 mg PO DAILY Patient Comments: Takes HS propranolol 20 mg tablet 20 mg PO DAILY Patient Comments: Takes HS losartan 100 mg tablet 100 mg PO DAILY Patient Comments: Takes HS metformin 500 mg tablet extended release 24 hr 1,000 mg PO BID aripiprazole 15 mg tablet 15 mg PO DAILY Patient Comments: Takes HS rosuvastatin 10 mg tablet 20 mg PO DAILY Patient Comments: Takes HS levetiracetam [Keppra] 500 mg tablet 500 mg PO BID Jardiance 25 mg tablet 25 mg PO DAILY Patient Comments: Takes HS divalproex [Depakote] 250 mg tablet,delayed release (DR/EC) 250 mg PO Q8H fluoxetine 40 mg capsule 40 mg PO DAILY Patient Comments: Takes HS Date of admission: 11/18/24 14:04 Primary Care Provider: Lazaro*Harriet Keller Admitting Provider: Bhavik Torres Attending physician on admission: Bhavik Torres Condition: Serious Quality VTE Prophylaxis VTE prophylaxis: pharmacologic ordered (Lovenox 40 mg subQ daily.) Hospitalist MIPS Heart Failure (Exclusion) Patient has history of Heart Transplant or Left Ventricular Assistive Device?: No IF YES, STOP HERE Heart Failure (Qualifier) Patient has current or prior documentation of LVEF less than or equal to 40%, or mod/servere depressed LVSF?: No IF NO, STOP HERE
[2024-11-21 12:15] LABS: Glucose Point of Care 88 mg/dl (65-105)
[2024-11-21] MEDS: metroNIDAZOLE 500 MG TABLET PO (14:00)
[2024-11-22 12:58] LABS: NIL 0.04 IU/mL; Quantiferon TB Plus, 1T NEGATIVE (NEGATIVE); TB1-NIL <0.00 IU/mL; TB2-NIL <0.00 IU/mL
[2024-11-22 15:23] LABS: Pneumococcal Antigen Urine NOT DETECTED
[2024-11-24 16:48] LABS: Adenovirus DNA Not Detected (Not Detected); Chlamydophila pneumoniae Not Detected (Not Detected); Coronavirus 229E Not Detected (Not Detected); Coronavirus HKU1 Not Detected (Not Detected); Coronavirus NL63 Not Detected (Not Detected); Coronavirus OC43 Not Detected (Not Detected); Human Metapneumovirus Not Detected (Not Detected); Human Parainfluenza Virus 1 Not Detected (Not Detected); Human Parainfluenza Virus 2 Not Detected (Not Detected); Human Parainfluenza Virus 3 Not Detected (Not Detected); Human Parainfluenza Virus 4 Not Detected (Not Detected); Human RSV B Not Detected (Not Detected); Influenza A Not Detected (Not Detected); Influenza B Not Detected (Not Detected); Mycoplasma pneumoniae Not Detected (Not Detected); Rhinovirus/Enterovirus Not Detected (Not Detected)
== END 2024-11-21 16:44 | disposition home or self-care (01) | DRG 137 ==
LOC: ANHED 19:14 → ANH3MED 19:38
PROVIDERS: Internal Medicine; Internal Medicine Critical Care Medicine; Nurse Practitioner Family; Registered Nurse; Admitting Provider General Practice; Emergency Provider Physician Assistant; PCP Family Medicine; Visit Provider Nurse Practitioner
DX: J85.0 Gangrene and necrosis of lung (principal); F31.9 Bipolar disorder, unspecified; D63.8 Anemia in other chronic diseases classified elsewhere; E78.5 Hyperlipidemia, unspecified; E11.9 Type 2 diabetes mellitus without complications; F17.210 Nicotine dependence, cigarettes, uncomplicated; F41.9 Anxiety disorder, unspecified; I10 Essential (primary) hypertension; J44.0 Chronic obstructive pulmonary disease with (acute) lower respiratory infection; G40.909 Epilepsy, unspecified, not intractable, without status epilepticus; R05.3 Chronic cough; Z79.84 Long term (current) use of oral hypoglycemic drugs; Z20.822 Contact with and (suspected) exposure to COVID-19; Z88.0 Allergy status to penicillin
CPT/HCPCS: 36415; 71045; 71046; 80053; 80202; 80307; 82565; 82728; 82948; 83540; 83550; 83605; 83735; 84484; 85025; 85610; 85730; 86140; 86480; 87449; 87633; 87641; 87899; 92526; 92611; 93005; 93306; 94640; 96365; 96366; 96367; 96375; 99285; A9270; G0378; G0379; J0696; J1650; J1815; J1836; J1885; J1956; J3370; J7030

== ENCOUNTER 2025-01-15 15:58 | Emergency (ER) | payer OTHER, SELFPAY ==
--- NOTE | ~2025-01-15 | XR_ITS ---
EXAMINATION: XR chest 2V Exam Date/Time: 01/15/2025 16:45 CDT HISTORY: recent pneumonia Comparison: 11/21/2024, 11/18/2024; CTPA 11/16/2024. RESULT: Lines, tubes, and devices: None. Lungs and pleura: Continued decreasing size of the right upper lung consolidation with adjacent pleu ral interstitial thickening. No new focal consolidation, pneumothorax, or large pleural effusion. Cardiomediastinal silhouette: Stable. Other: No acute osseous or upper abdominal finding. IMPRESSION: No acute cardiopulmonary process. Resolving right upper lung pneumonia. Reviewed, dictated and finalized at location K.
--- NOTE | ~2025-01-15 | CT_ITS ---
EXAMINATION: CT brain wo con DATE: 01/15/2025 17:00 INDICATION: hallucinatingaltered mental status . TECHNIQUE: Computed tomography (CT) of the head was performed without intravenous contrast. The mA wa s adjusted according to patient size. Iterative reconstruction technique was employed. The dose-lengt h product was 681.00 mGy-cm. COMPARISON: None. FINDINGS: No acute intracranial hemorrhage or extra-axial fluid collection. No hydrocephalus, mass, or herniation. No acute ischemic infarct. Unremarkable dural venous sinus attenuation. No acute osseous abnormality. Nodular mucosal thickening in the right maxillary sinus, minimal mucosal thickening in the left maxil lyle sinus, small retention cyst or polyp in the left sphenoid sinus, the remaining aerated spaces ar e clear. Focal hypodensity in the left centrum semiovale, likely small lacunar infarct. IMPRESSION: No acute intracranial process. Reviewed, dictated and finalized at location K.
--- OUTSIDE RECORDS SUMMARY | 2025-01-15 16:00 | XMS_ITS | Clinical Summary ---
Author Organization [facility] Address [address] [address] Phone Care Team Providers Care Hog Man Name Role Phone Rony Mckenzie MD Primary Care Provider Allergies Active Allergy Reactions Criticality Noted Date [...] Take 20 mg by mouth daily. Active Encounters Date Type Department Care Team Description 12/18/2024 1:31 PM CDT - 12/18/2024 11:59 PM CDT Hospital Encounter [facility] Diagnostic Radiology [address] [place] [address] Makayla Humphrey MD Discharge Disposition: Discharged to home or Selfcare 12/18/2024 Travel 12/18/2024 Transcribe Orders [facility] Admitting [address] [place] [address] Makayla Humphrey MD Gangrenous pneumonia (HCC) (Primary Dx) from Last 3 Months Family History Medical History Relation Name Comments Diabetes Mother Heart Attack Mother Stroke Mother Breast Cancer Sister Relation Name Status Comments Mother Sister Social History Tobacco Use Types Packs/Day Years Used Date Smoking Tobacco: Every Day Cigarettes 1 37.6 Started: 06/27/1987 Alcohol Use Standard Drinks/Week Comments [...] Description 03/11/2025 3:00 PM CDT Office Visit [facility] - Neurology - [address] [place] [address] Jordon Echeverria MD [address] [place] [address] Health Maintenance Due Date Last Done Comments Hepatitis C Virus (HCV) Screening 1976 Hepatitis B Immunization (1 of 3 - 19+ 3-dose series) 1995 Cologuard 2021 Colonoscopy 2021 Colorectal Cancer Screening 2021 Immunochemical Fecal Occult Blood 2021 SARS-COV-2 Immunization ( season) 2024 Influenza Immunization (#1) 02/25/202502/25, 07/19/2023, 03/20/2020, Additional history exists Respiratory Syncytial Virus (RSV) Immunization (Adult) (1 - 1-dose 75+ series) 2051 DTaP/Tdap/Td Immunization Discontinued 03/19/2019, TdaP Immunization Completed 03/19/2019, 03/23/2016 Pneumococcal Immunization Combined Completed 08/24/2024, 12/25/2019 Human Papillomavirus (HPV) Immunization Aged Out No longer eligible based on patient's age to complete this topic Meningococcal Immunization (ACWY) Aged Out No longer eligible based on patient's age to complete this topic Rotavirus Immunization Aged Out No lo nger eligible based on patient's age to complete this topic Procedures Procedure Name Priority Date/Time Associated Diagnosis Comments XR CHEST 2 VIEWS Routine 12/18/2024 1:48 PM CDT Gangrenous pneumonia (HCC) CBC WITH AUTO DIFFERENTIAL Routine 12/18/2024 1:26 PM CDT Gangrene and necrosis of lung C-REACTIVE PROTEIN (CRP) QUANT Routine 12/18/2024 1:26 PM CDT Gangrene and necrosis of lung CMP (COMPREHENSIVE METABOLIC PANEL) Routine 12/18/2024 1:26 PM CDT Gangrene and necrosis of lung COMPLETE BLOOD COUNT (CBC) WITH DIFF Routine 12/18/2024 1:26 PM CDT Gangrene and necrosis of lung from Last 3 Months Results * XR CHEST 2 VIEWS (12/18/2024 1:48 PM CDT) Anatomical Region Laterality Modality Chest N/A Digital Radiogra phy 12/27/2024 11:3 3 AM CDT Impressions 12/27/2024 11:36 AM CDT IMPRESSION: 1. Focal opacity in the periphery of the inferior right upper lobe suspicious for pneumonia with cavitary process suspected just superior to this. CT scan of the chest is recommended for further evaluation at this time. Comparison with any prior available imaging studies would also be of significant benefit. Narrative 12/27/2024 11:36 AM CDT EXAM DESCRIPTION: XR CHEST 2 VIEWS REASON FOR STUDY: suspected for pneumonia. pt has productive cough and weakness x 1-2 weeks. pt is current somker TECHNIQUE: PA and lateral radiographic view(s) of the chest. COMPARISON: None FINDINGS: LUNGS: There is a focal opacity within the inferior right upper lobe at the periphery, as evidence for pneumonia. A cavitary process is suggested just superior to this, measuring approximately 3.[address] is recommended for further evaluation. There is no large effusion. There is no pneumothorax. HEART/MEDIASTINUM: Cardiac silhouette and mediastinal contours are within normal limits. LINES/TUBES: None. BONES: No acute osseous abnormality. Osteoarthritis of the shoulders. THIS IS AN ELECTRONICALLY VERIFIED FINAL REPORT 12/27/2024 11:33 AM - Electronically signed by Amanda Caraballo M.D. TW: TW Report ID: [id number] Reading Location: [id number] Procedure Note Amanda Caraballo MD - 12/27/2024 EXAM DESCRIPTION: XR CHEST 2 VIEWS REASON FOR STUDY: suspected for pneumonia. pt has productive cough and weakness x 1-2 weeks. pt is current somker TECHNIQUE: PA and lateral radiographic view(s) of the chest. COMPARISON: None FINDINGS: LUNGS: There is a focal opacity within the inferior right upper lobe at the periphery, as evidence for pneumonia. A cavitary process is suggested just superior to this, measuring approximately 3.[address] is recommended for further evaluation. There is no large effusion. There is no pneumothorax. HEART/MEDIASTINUM: Cardiac silhouette and mediastinal contours are within normal limits. LINES/TUBES: None. BONES: No acute osseous abnormality. Osteoarthritis of the shoulders. THIS IS AN ELECTRONICALLY VERIFIED FINAL REPORT 12/27/2024 11:33 AM - Electronically signed by Amanda Caraballo M.D. TW: TW Report ID: [id number] Reading Location: [place] [address] IMPRESSION: 1. Focal opacity in the periphery of the inferior right upper lobe suspicious for pneumonia with cavitary process suspected just superior to this. CT scan of the chest is recommended for further evaluation at this time. Comparison with any prior available imaging studies would also be of significant benefit. Makayla Humphrey MD [facility] DIAGNOSTIC ORDERABLES Fin al Result * (ABNORMAL) CBC WITH AUTO DIFFERENTIAL (12/18/2024 1:26 PM CDT) WBC 11.16 4.00 - 12.00 10(3)/mcL 12/18/2024 2:14 PM CDT [facility] RBC 4.65 4.40 - 5.80 10(6)/mcL 12/18/2024 2:14 PM CDT [facility] HEMOGLOBIN (HGB) 13.3 13.0 - 16.5 g/dL 12/18/2024 2:14 PM CDT [facility] HEMATOCRIT (HCT) 40.5 38.0 - 50.0 % 12/18/2024 2:14 PM CDT [facility] MCV 87.1 82.0 - 96.0 fL 12/18/2024 2:14 PM CDT [facility] MCH 28.6 26.0 - 32.0 pg 12/18/2024 2:14 PM CDT [facility] MCHC 32.8 31.0 - 36.0 g/dL 12/18/2024 2:14 PM CDT [facility] PLATELET COUNT 309 140 - 440 10(3)/mcL 12/18/2024 2:14 PM CDT [facility] RDW 15.1 11.8 - 15.5 % 12/18/2024 2:14 PM CDT [facility] MPV 8.7 8.0 - 12.6 fL 12/18/2024 2:14 PM CDT [facility] NEUTROPHILS 67.5 40.0 - 68.0 % 12/18/2024 2:14 PM CDT [facility] LYMPHOCYTES 22.6 19.0 - 49.0 % 12/18/2024 2:14 PM CDT [facility] MONOCYTES 7.8 3.0 - 13.0 % 12/18/2024 2:14 PM CDT [facility] EOSINOPHILS 1.3 0.0 - 8.0 % 12/18/2024 2:14 PM CDT [facility] BASOPHILS 0.5 0.0 - 1.0 % 12/18/2024 2:14 PM CDT [facility] IMMATURE GRANULOCYTE 0.3 0.0 - 0.4 % 12/18/2024 2:14 PM CDT [facility] Comment:Immature Granulocyte s includes Metamyelocytes, Myelocytes, and Promyelocytes. ABSOLUTE NEUTROPHILS 7.53(H) 1.40 - 5.30 10(3)/mcL 12/18/2024 2:14 PM CDT [facility] ABSOLUTE LYMPHOCYTES 2.52 0.90 - 3.30 10(3)/mcL 12/18/2024 2:14 PM CDT [facility] ABSOLUTE MONOCYTES 0.87 0.10 - 0.90 10(3)/mcL 12/18/2024 2:14 PM CDT [facility] ABSOLUTE EOSINOPHIL 0.15 0.00 - 0.50 10(3)/mcL 12/18/2024 2:14 PM CDT [facility] ABSOLUTE BASOPHILS 0.06 0.00 - 0.10 10(3)/mcL 12/18/2024 2:14 PM CDT [facility] ABSOLUTE IMMATURE GRANULOCYTE 0.03 0.00 - 0.03 10 (3) mcL. 12/18/2024 2:14 PM CDT [facility] NRBC PER 100 WBC 0 12/19/19 2:14 PM CDT [facility] Blood Venipuncture / Unknown 12/18/2024 1:26 PM CDT 12/18/2024 2:09 PM CDT us Makayla Humphrey MD HEMATOLOGY ORDERABLES Final R esult [facility] [address] [place] [address] * (ABNORMAL) CMP (COMPREHENSIVE METABOLIC PANEL) (12/18/2024 1:26 PM CDT) SODIUM 134(L) 136 - 145 mmol/L 12/18/2024 2:45 PM CDT [facility] POTASSIUM 4.6 3.5 - 5.1 mmol/L 12/18/2024 2:45 PM CDT [facility] CHLORIDE 102 98 - 107 mmol/L 12/18/2024 2:45 PM CDT [facility] CO2, VENOUS 21(L) 22 - 30 mmol/L 12/18/2024 2:45 PM CDT [facility] ANION GAP 15.6 <18.0 mmol/L 12/18/2024 2:45 PM CDT [facility] GLUCOSE 354(H) 70 - 99 mg/dL 12/18/2024 2:45 PM CDT [facility] BUN 17 9 - 21 mg/dL 12/18/2024 2:45 PM CDT [facility] CREATININE, BLOOD 0.78 0.70 - 1.30 mg/dL 12/18/2024 2:45 PM CDT [facility] BUN/CREATININE RATIO 22(H) 12 - 20 ratio 12/18/2024 2:45 PM CDT [facility] TOTAL PROTEIN 8.6(H) 6.0 - 8.0 g/dL 12/18/2024 2:45 PM CDT [facility] ALBUMIN 4.5 3.5 - 5.0 g/dL 12/18/2024 2:45 PM CDT [facility] A/G RATIO 1.1 1.0 - 2.2 12/18/2024 2:45 PM CDT [facility] CALCIUM 9.7 8.7 - 10.5 mg/dL 12/18/2024 2:45 PM CDT [facility] T BILI 0.3 0.2 - 1.2 mg/dL 12/18/2024 2:45 PM CDT [facility] SGOT (AST) 20 <43 U/L 12/18/2024 2:45 PM CDT [facility] SGPT (ALT) 18 <56 U/L 12/18/2024 2:45 PM CDT [facility] ALKALINE PHOSPHATASE 76 40 - 150 U/L 12/18/2024 2:45 PM CDT [facility] IS THE PATIENT REQUIRED TO BE FASTING? No 12/18/2024 2:45 PM CDT [facility] GFR, ESTIMATED >60 >=60 12/18/2024 2:45 PM CDT [facility] Comment: Creatinine Clearance is the preferred criteria for selecting drug dose adjustments in renally impaired patients. The GFR is provided as additional pertinent clinical information. GFR is reported in mL/min/1.73 sq m. Calculation based on the Chronic Kidney Disease Epidemiology Collaboration (CKD- EPI) equation refit without adjustment for race. GFR, EST. >60 >=60 2:45 PM CDT [facility] GFR, EST. NONAFRICAN >60 >=60 12/18/2024 2:45 PM CDT [facility] Blood Venipuncture / Unknown 12/18/2024 1:26 PM CDT 12/18/2024 2:09 PM CDT Makayla Humphrey MD CHEMISTRY ORDERABLES Final Re sult [facility] [address] [place] [address] * C-REACTIVE PROTEIN (CRP) QUANT (12/18/2024 1:26 PM CDT) C-REACTIVE PROTEIN 0.21 <0.50 mg/dL 12/18/2024 4:26 PM CDT [facility] Blood Venipuncture / Unknown 12/18/2024 1:26 PM CDT 12/18/2024 2:09 PM CDT Makayla Humphrey MD CHEMISTRY ORDERABLES Final Re sult Performing Organization Address City/[facility]/ZIP Co de Phone Number [facility] [address] [place] [address] from Last 3 Months Insurance [facility] Care Teams Hog Man Relationship Specialty Start Date End Date Rony Mckenzie MD [address] [place] [address] PCP - General Internal Medicine 12/10/22
--- OUTSIDE RECORDS SUMMARY | 2025-01-15 16:00 | XMS_ITS | Patient Health Record ---
Author Organization [facility] Address [address] [place] [address] Care Team Providers Care Tester Rocket Engine Name Role Phone Jany Allen Primary Care [...] 10 MG 1 tablet Orally Once a day; Duration: 30 days Active Losartan Potassium 100 MG 1 tablet Orall y Once a day; Duration: 30 days Active Escitalopram Oxalate 10 MG Take 1 tablet by mouth once daily for 30 days; Duration: 30 Active Depakote ER 250 MG 1 capsule Orally alek ry 8 hours; Duration: 30 days Active Gabapentin 100 MG 1 capsule Orally alek ry 12 hours; Duration: 30 days Active Ibuprofen 800 MG 1 tablet with food o r milk as needed Orally every 8 hours as needed; Duration: 30 days Active clonidine 0.1 1 tab po three times a day Active Social History Tobacco Use: Social History Observation Description Date Details (start date - stop date) Current Smoker NA - NA Tobacco Use/Smoking Question Answer Notes Are you a current smoker How often do you smoke cigarettes? every day How many cigarettes a day do you smoke? 21-30 Alcohol Screen (Audit-C) Question Answer Notes Did you have a drink containing alcohol in the p ast year? No Points 0 Interpretation Negative DAST Question Answer Notes Total Score: 0 Interpretation: No problems reported Problems Problem Type SNOMED Code ICD Code Onset Dates Problem Status W/U Status Risk Notes Problem Essential hypertension (19933620) Essential hypertension (I10) Active confirmed Problem Vitamin D deficiency (41323317) Vitamin D deficiency (E55.9) Active confirmed Problem Allergic rhinitis (40497327) Allergic rhinitis (J30.9) Active confirmed Problem Tobacco dependence (00635514) Tobacco dependence (F17.200) Active confirmed Problem Memory loss (55039468) Memory loss (R41.3) Active confirmed Problem Displacement of lumbar intervertebral disc without myelopathy (36656947) Bulging lumbar disc (M51.26) Active confirmed Problem Type II diabetes mellitus (89126824) Type II diabetes mellitus (E11.9) Active confirmed Problem Refractory migraine (760502151) Intractable migraine without status migrainosus, unspecified migraine type (G43.919) Active confirmed Problem High cholesterol (94573428) High cholesterol (E78.00) Active confirmed Plan Of Treatment No Information Insurance Providers Payer Name Payer Address Payer Phone Subscriber Number Group Number Insured Name Patient Relationship to Insured Coverage Start Date Coverage End Date [employer] [place] [employer] [address] [place], [place] [id number] Jared Meraz Self - patient is the insured 1 [employer] [place] FFS [address] [place], [place] [id number] Jared Meraz Self - patient is the insured 1 [employer] [facility] [place] Non Billable [address] [place], [place] [id number] Jared Meraz Self - patient is the [...]
[2025-01-15 16:19] VITALS: BP 103/54; PULSE 88; RESP 18; TEMP 36.9; O2SAT 96
--- NOTE | 2025-01-15 16:28 | ED.AMS ---
HPI - Altered Mental Status General Chief Complaint: Recheck/Abnormal Lab/Rx <Merissa Rankin APRN - Last Filed: 01/15/25 16:30> Stated Complaint: pna <Merissa Rankin APRN - Last Filed: 01/15/25 16:30> Time Seen by Provider: 01/15/25 16:15 <Merissa Rankin APRN - Last Filed: 01/15/25 16:30> Focused HPI: Patient is a 49-year-old male who presents to the ER with ?hallucinating. His significant other reports he had pneumonia in the past and started hallucinating. She is worried he has pneumonia again. Patient reports his symptoms started last week but they have become worse over the past 2 days. He endorses a productive cough. Patient received a history of high blood pressure, COPD, and diabetes. He denies any chest pain, headache, or recent fevers. GENERAL: Well-appearing, well-nourished, and in no acute distress. HEAD: Normocephalic, atraumatic. CHEST: Clear to auscultation. ?No respiratory distress. HEART: Regular rate and rhythm.? NEURO: ?Alert and oriented x3. Patient screened in triage and initial orders placed.? ?Additional care and disposition to be based upon?diagnostic testing and treatment. <Merissa Rankin APRN - Last Filed: 01/15/25 16:30> History of Present Illness HPI narrative: Agree with the HPI above. Patient states that he was having some sleepwalking and sleep induced hallucinations and states that he gets these frequently. States he is having memory issues which have been going on for several months and his family corroborates. Has an upcoming PCP follow-up appointment. Denies any symptoms during my initial assessment states that he feels fine wishes to go home. <Shan Magallanes MD - Last Filed: 01/16/25 00:04> Related Data Home Medications: Home Medications ?Medication ?Instructions ?Recorded ?Confirmed ?Last Taken ?Type amlodipine 10 mg tablet 10 mg PO DAILY 12/22/23 12/17/24 11/15/24 History aripiprazole 15 mg tablet 15 mg PO DAILY 12/22/23 12/17/24 11/15/24 History benztropine 1 mg tablet 1 mg PO DAILY 12/22/23 12/17/24 11/15/24 History gabapentin 300 mg capsule 300 mg PO DAILY 12/22/23 12/17/24 11/15/24 History ibuprofen 800 mg tablet 800 mg PO DAILY 12/22/23 12/17/24 11/15/24 History losartan 100 mg tablet 100 mg PO DAILY 12/22/23 12/17/24 11/15/24 History metformin 500 mg tablet,extended 1,000 mg PO BID 12/22/23 12/17/24 11/15/24 21:00 History release 24 hr propranolol 20 mg tablet 20 mg PO DAILY 12/22/23 12/17/24 11/15/24 History rosuvastatin 10 mg tablet 20 mg PO DAILY 12/22/23 12/17/24 11/15/24 History divalproex 250 mg tablet,delayed 250 mg PO Q8H 11/16/24 12/17/24 Unknown History release (Depakote) empagliflozin 25 mg tablet 25 mg PO DAILY 11/16/24 12/17/24 Unknown History (Jardiance) fluoxetine 40 mg capsule 40 mg PO DAILY 11/16/24 12/17/24 Unknown History levetiracetam 500 mg tablet 500 mg PO BID 11/16/24 12/17/24 Unknown History (Keppra) <Merissa Rankin APRN - Last Filed: 01/15/25 16:30> Allergies/Adverse Reactions: Allergies Allergy/AdvReac Type Severity Reaction Status Date / Time Penicillins Allergy Unknown Rash Verified 01/15/25 22:39 hydrocodone Allergy Rash Verified 01/15/25 22:39 <Merissa Rankin APRN - Last Filed: 01/15/25 16:30> Review of Systems Review of Systems: As reviewed above in HPI <Shan Magallanes MD - Last Filed: 01/16/25 00:04> [facility] Past Medical History Medical History: Medical History Diabetes mellitus Bipolar disorder COPD (chronic obstructive pulmonary disease) Hyperlipidemia Anxiety Depression Hypertension Epilepsy <Merissa Rankin APRN - Last Filed: 01/15/25 16:30> Surgical History Surgical History: Surgical History History of spinal surgery <Merissa Rankin GAS COMPRESSOR OPERATOR - Last Filed: 01/15/25 16:30> Family History Family History: Family History Other Unknown family medical history <Merissa Rankin, GAS COMPRESSOR OPERATOR - Last Filed: 01/15/25 16:30> Social History Social History: Social History Social History: The patient is and lives with his significant other Wanda. He has 1 daughter. He has smoked approximately 1.5 packs of cigarettes per day and started smoking at the age of 13. He denies any history of heavy alcohol use. 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 Code status: Full code Surrogate decision maker: His daughter or his significant other Wanda Smoking packs per day: 1.5 Smoking cigarettes per day: 30.0 Years smoked: 36 Smoking pack-years: 54.00 Smoking status: Current every day smoker Alcohol intake: former Substance use: never Do You Feel Safe in your Home?: Yes Lack of Transportation: No Lack of Food: Never True Current Housing: I Have Housing Concerned About Future Housing: No Difficulty Paying Gas/Electric Bills: No Difficulty Paying for Meds: No Currently Unemployed: No Education: Grade School Difficulty w/ Childcare or Family Care: No Spiritual care concerns: No <Merissa Rankin, GAS COMPRESSOR OPERATOR - Last Filed: 01/15/25 16:30> Exam Narrative: GENERAL: [Well-appearing, well-nourished, and in no acute distress.] HEAD: [Normocephalic, atraumatic.] EYES: [PERRLA and EOMI.] ENT: Nares clear, no rhinorrhea or epistaxis. Mucous membranes moist. NECK: Supple. CHEST: [Clear to auscultation. No respiratory distress.] HEART: [Regular rate and rhythm]. No murmur heard. [Normal peripheral pulses.] ABDOMEN: [Soft, nondistended], [nontender], [No rigidity or guarding] EXTREMITIES: Normal range of motion. [No edema.] SKIN: Warm, dry, no rash. NEURO: [No focal deficits]. Alert and oriented [x3.] PSYCH: [Normal mood and affect.] <Shan Magallanes MD - Last Filed: 01/16/25 00:04> Course Vital Signs Vital signs: Vital Signs Temperature 36.9 C 01/15/25 16:19 Pulse Rate 88 01/15/25 16:19 Respiratory Rate 18 01/15/25 16:19 Blood Pressure 103/54 L 01/15/25 16:19 Pulse Oximetry 96 01/15/25 16:19 Temperature 36.9 C 01/15/25 16:19 Pulse Rate 72 01/15/25 22:36 Respiratory Rate 18 01/15/25 22:36 Blood Pressure 108/79 01/15/25 22:36 Pulse Oximetry 98 01/15/25 22:36 <Merissa Rankin APRN - Last Filed: 01/15/25 16:30> Vital Signs Temperature 36.9 C 01/15/25 16:19 Pulse Rate 88 01/15/25 16:19 Respiratory Rate 18 01/15/25 16:19 Blood Pressure 103/54 L 01/15/25 16:19 Pulse Oximetry 96 01/15/25 16:19 Temperature 36.9 C 01/15/25 16:19 Pulse Rate 72 01/15/25 22:36 Respiratory Rate 18 01/15/25 22:36 Blood Pressure 108/79 01/15/25 22:36 Pulse Oximetry 98 01/15/25 22:36 <Shan Magallanes MD - Last Filed: 01/16/25 00:04> MDM - Altered Mental Status MDM Narrative Medical decision making narrative: 49-year-old male with a history of previous necrotizing pneumonia currently resolving after antibiotic courses. 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 Humphrey. Patient and family states that he has been having some memory issues and hallucinations recently. Memory issues have been going on for several months where he forgets to take his morning medications. States that patient occasionally gets hallucinations from sleep and sleep walking and patient is aware of them. He states that he otherwise feels fine has no complaints. His family was concerned that he could be having recurrence of infection and that could be triggering his hallucinations. Patient is an insulin dependent diabetic and has been having some escalating insulin doses recently currently at 10 units nightly. Patient is also on metformin and some seizure prophylactic medications. No falls or injuries. No head trauma evident. Clear breath sounds throughout. Unremarkable neurological and vascular assessment. He is well appearing not any acute distress with normal vital signs. Differential is broad given patient's chronic issues but could be a potential component of dehydration, electrolyte imbalances, complication of his diabetes, less likely intracranial pathology such as a stroke or brain hemorrhage. Possibility of infectious pathology such as urinary tract infection or recurrence of his complicated pneumonia. Laboratory studies were obtained, chest x-ray, EKG, urinalysis and he was given hydration P Patient's workup was reassuring. He has a small leukocytosis of 12.0 but also an elevated hemoglobin from baseline indicative of hemoconcentration rather than infectious pathology specially combined with the fact that he does not have a fever or any infectious complaints. Electrolytes are largely unremarkable. Normal BUN and creatinine, glucose 285. No significant anion gap acidosis. LFTs are normal. TSH is normal. Urinalysis shows no signs of infection but does show dehydration. No ketones. Negative drug screen, negative alcohol level. CT of the head shows no acute intracranial abnormality. Chest x-ray shows no acute cardiopulmonary process and resolved upper right pneumonia. I relayed this information to the patient and the patient's family members. No urgent or emergent concerns identified today and he was provided hydration for slight dehydration. Patient has an upcoming PCP appointment and encouraged him to mention the concerns regarding his ongoing forgetfulness, uncontrolled diabetes, sleep habits. Patient and family felt comfortable discharging he was provided literature and return precautions. <Shan Magallanes MD - Last Filed: 01/16/25 00:04> Medical Records Attestation: I reviewed the patient's medical records. <Shan Magallanes MD - Last Filed: 01/16/25 00:04> Lab Data Attestation: I reviewed the patient's lab results. <Shan Magallanes MD - Last Filed: 01/16/25 00:04> Result diagrams: 01/15/25 16:23 01/15/25 16:23 <Merissa Rankin APRN - Last Filed: 01/15/25 16:30> Labs: Lab Results 01/15/25 01/15/25 Range/Units 16:23 19:07 WBC 12.0 H (4.5-10.0) K/mm3 RBC 4.55 L (4.6-6.20) M/mm3 Hgb 13.0 L (14.0-18.0) g/dL Hct 39.7 L (42.0-52.0) % MCV 87.3 (80-100) fl MCH 28.6 (26-34) pg MCHC 32.7 (32-36) g/dl RDW 15.7 H (11.5-14.5) % Plt Count 256 (150-375) k/mm3 MPV 8.8 (7.4-10.4) fl Immature Gran % (Auto) 0.4 (0-0.5) % Neut % (Auto) 68.0 (45.5-73.1) % Lymph % (Auto) 19.0 (18.3-44.2) % [place] % (Auto) 10.7 H (2.6-8.5) % Eos % (Auto) 1.5 (0-4.4) % Baso % (Auto) 0.4 (0.2-1.2) % Lymph # (Auto) 2.28 (0.9-3.2) K/mm3 [place] # (Auto) 1.3 H (0.1-0.6) K/mm3 Eos # (Auto) 0.2 (0-0.3) K/mm3 Baso # (Auto) 0.1 (0.0-0.1) K/mm3 Abs Immat Gran (auto) 0.05 H (0.00-0.031) K/mm3 Absolute Neuts (auto) 8.2 H (1.3-6.7) K/mm3 Absolute Nucleated RBC 0.000 (0.0-0.012) K/mm3 Nucleated RBC % 0.0 (0.0-0.2) % Sodium 136 L (137-145) mmol/L Potassium 4.1 (3.4-5.0) mmol/L Chloride 102 (98-107) mmol/L Carbon Dioxide 21 L (22-30) mmol/L Anion Gap 13 H (4-12) mmol/L BUN 6 L (9-20) mg/dL Creatinine 0.71 (0.7-1.3) mg/dL Estim Creat Clear Calc 102 ml/min Estimated GFR > 60 (59 - ) Glucose 285 H (65-110) mg/dL Calcium 9.4 (8.4-10.2) mg/dL Total Bilirubin 0.5 (0.2-1.3) mg/dL AST 20 (17-59) U/L ALT 18 (6-50) U/L Alkaline Phosphatase 66 (38-126) U/L Total Protein 8.2 (6.3-8.2) g/dL Albumin 4.3 (3.5-5.1) g/dL TSH 2.900 (0.465-4.680) uIU/mL Urine Color Yellow (Yellow) Urine Appearance Clear (Clear) Urine pH 5.5 (5.0-9.0) Ur Specific [place] 1.045 H (1.001-1.035) Urine Protein Negative (Negative) mg/dL Urine Glucose (UA) 3+ H (Negative) mg/dL Urine Ketones Negative (Negative) mg/dL Ur Blood (Man) Negative (Negative) Urine Nitrate Negative (Negative) Urine Bilirubin Negative (Negative) Urine Urobilinogen 0.2 (<2.0) mg/dL Leukocyte Esterase Rfl Negative (Negative) QUINTEN/UL Urine Opiates Screen Negative (Negative) Urine Methadone Screen Negative (Negative) Ur Barbiturates Screen Negative (Negative) Ur Phencyclidine Scrn Negative (Negative) Ur Amphetamine Screen Negative (Negative) U Benzodiazepines Scrn Negative (Negative) Urine Cocaine Screen Negative (Negative) U Cannabinoids Screen Negative (Negative) Ethyl Alcohol < 10 (<10) mg/dL <Merissa Rankin, GAS COMPRESSOR OPERATOR - Last Filed: 01/15/25 16:30> Lab Results 01/15/25 01/15/25 Range/Units 16:23 19:07 WBC 12.0 H (4.5-10.0) K/mm3 RBC 4.55 L (4.6-6.20) M/mm3 Hgb 13.0 L (14.0-18.0) g/dL Hct 39.7 L (42.0-52.0) % MCV 87.3 (80-100) fl MCH 28.6 (26-34) pg MCHC 32.7 (32-36) g/dl RDW 15.7 H (11.5-14.5) % Plt Count 256 (150-375) k/mm3 MPV 8.8 (7.4-10.4) fl Immature Gran % (Auto) 0.4 (0-0.5) % Neut % (Auto) 68.0 (45.5-73.1) % Lymph % (Auto) 19.0 (18.3-44.2) % [place] % (Auto) 10.7 H (2.6-8.5) % Eos % (Auto) 1.5 (0-4.4) % Baso % (Auto) 0.4 (0.2-1.2) % Lymph # (Auto) 2.28 (0.9-3.2) K/mm3 [place] # (Auto) 1.3 H (0.1-0.6) K/mm3 Eos # (Auto) 0.2 (0-0.3) K/mm3 Baso # (Auto) 0.1 (0.0-0.1) K/mm3 Abs Immat Gran (auto) 0.05 H (0.00-0.031) K/mm3 Absolute Neuts (auto) 8.2 H (1.3-6.7) K/mm3 Absolute Nucleated RBC 0.000 (0.0-0.012) K/mm3 Nucleated RBC % 0.0 (0.0-0.2) % Sodium 136 L (137-145) mmol/L Potassium 4.1 (3.4-5.0) mmol/L Chloride 102 (98-107) mmol/L Carbon Dioxide 21 L (22-30) mmol/L Anion Gap 13 H (4-12) mmol/L BUN 6 L (9-20) mg/dL Creatinine 0.71 (0.7-1.3) mg/dL Estim Creat Clear Calc 102 ml/min Estimated GFR > 60 (59 - ) Glucose 285 H (65-110) mg/dL Calcium 9.4 (8.4-10.2) mg/dL Total Bilirubin 0.5 (0.2-1.3) mg/dL AST 20 (17-59) U/L ALT 18 (6-50) U/L Alkaline Phosphatase 66 (38-126) U/L Total Protein 8.2 (6.3-8.2) g/dL Albumin 4.3 (3.5-5.1) g/dL TSH 2.900 (0.465-4.680) uIU/mL Urine Color Yellow (Yellow) Urine Appearance Clear (Clear) Urine pH 5.5 (5.0-9.0) Ur Specific [place] 1.045 H (1.001-1.035) Urine Protein Negative (Negative) mg/dL Urine Glucose (UA) 3+ H (Negative) mg/dL Urine Ketones Negative (Negative) mg/dL Ur Blood (Man) Negative (Negative) Urine Nitrate Negative (Negative) Urine Bilirubin Negative (Negative) Urine Urobilinogen 0.2 (<2.0) mg/dL Leukocyte Esterase Rfl Negative (Negative) QUINTEN/UL Urine Opiates Screen Negative (Negative) Urine Methadone Screen Negative (Negative) Ur Barbiturates Screen Negative (Negative) Ur Phencyclidine Scrn Negative (Negative) Ur Amphetamine Screen Negative (Negative) U Benzodiazepines Scrn Negative (Negative) Urine Cocaine Screen Negative (Negative) U Cannabinoids Screen Negative (Negative) Ethyl Alcohol < 10 (<10) mg/dL <Shan Magallanes MD - Last Filed: 01/16/25 00:04> Imaging Data Attestation: I personally reviewed and interpreted this imaging study as follows: <Shan Magallanes MD - Last Filed: 01/16/25 00:04> My impression: Impressions Chest X-Ray 01/15/25 17:06 IMPRESSION: No acute cardiopulmonary process. Resolving right upper lung pneumonia. Head CT 01/15/25 17:17 IMPRESSION: No acute intracranial process. <Shan Magallanes MD - Last Filed: 01/16/25 00:04> Discharge Plan Discharge Clinical Impression: Acute dehydration, Hallucinations, Forgetfulness, Uncontrolled diabetes mellitus <Merissa Rankin APRN - Last Filed: 01/15/25 16:30> Patient Disposition: Home <Merissa Rankin APRN - Last Filed: 01/15/25 16:30> Condition: Stable <Merissa Rankin APRN - Last Filed: 01/15/25 16:30> Instructions: Antibiotic Form, Dehydration (DC) <Merissa Rankin APRN - Last Filed: 01/15/25 16:30> Additional Instructions: Your laboratory studies show some slight dehydration secondary to the elevated blood sugars. Talked your doctors about increasing her insulin dose and definitely remember to take her morning medications. Talked your primary care provider's by your forgetfulness and visual hallucinations. No urgent or emergent concerns were identified today. Your pneumonia is resolving and nearly resolved entirely without any need for additional antibiotics. No signs of active infection. Scans of the head and images otherwise normal. <Merissa Rankin APRN - Last Filed: 01/15/25 16:30> Patient Language: Maldivian <Merissa Rankin APRN - Last Filed: 01/15/25 16:30> Prescriptions: No Action ibuprofen 800 mg tablet 800 mg PO DAILY Patient Comments: Takes HS amlodipine 10 mg tablet 10 mg PO DAILY Patient Comments: Takes HS benztropine 1 mg tablet 1 mg PO DAILY Patient Comments: Takes HS gabapentin 300 mg capsule 300 mg PO DAILY Patient Comments: Takes HS propranolol 20 mg tablet 20 mg PO DAILY Patient Comments: Takes HS losartan 100 mg tablet 100 mg PO DAILY Patient Comments: Takes HS metformin 500 mg tablet extended release 24 hr 1,000 mg PO BID aripiprazole 15 mg tablet 15 mg PO DAILY Patient Comments: Takes HS rosuvastatin 10 mg tablet 20 mg PO DAILY Patient Comments: Takes HS budesonide-formoterol [Symbicort] 160-4.5 mcg/actuation HFA aerosol inhaler 2 puff inhalation Q12H 30 Days Qty: 10.2 5RF Rx Instructions: Take TWO puffs twice a day, rinse and spit. albuterol sulfate [Ventolin HFA] 90 mcg/actuation HFA aerosol inhaler 2 inh inhalation Q4-6H PRN (Reason: shortness of breath) 90 Days Qty: 8.5 3RF levetiracetam [Keppra] 500 mg tablet 500 mg PO BID Jardiance 25 mg tablet 25 mg PO DAILY Patient Comments: Takes HS divalproex [Depakote] 250 mg tablet,delayed release (DR/EC) 250 mg PO Q8H fluoxetine 40 mg capsule 40 mg PO DAILY Patient Comments: Takes HS <Merissa Rankin APRN - Last Filed: 01/15/25 16:30> Follow-up/Referrals: UNKNOWN,DOCTOR [Primary Care Provider] - <Merissa Rankin APRN - Last Filed: 01/15/25 16:30> Time of Disposition: 00:04 <Merissa Rankin APRN - Last Filed: 01/15/25 16:30> 00:04 <Shan Magallanes MD - Last Filed: 01/16/25 00:04>
[2025-01-15 16:39] LABS: Hematocrit 39.7 % (42.0-52.0); Hemoglobin 13.0 g/dL (14.0-18.0); Immature Granulocyte Percent A 0.4 % (0-0.5); Lymphocytes Absolute Auto 2.28 K/mm3 (0.9-3.2); Mean Corpuscular HGB Conc 32.7 g/dl (32-36); Mean Corpuscular Hemoglobin 28.6 pg (26-34); Mean Corpuscular Volume 87.3 fl (80-100); Nucleated Red Blood Cells Absolute Auto 0.000 K/mm3 (0.0-0.012); Nucleated Red Blood Cells Perc 0.0 % (0.0-0.2); Platelet Count Result 256 k/mm3 (150-375); Red Blood Count 4.55 M/mm3 (4.6-6.20); White Blood Count 12.0 K/mm3 (4.5-10.0)
[2025-01-15 16:49] LABS: Alanine Aminotransferase 18 U/L (6-50); Albumin Level 4.3 g/dL (3.5-5.1); Alkaline Phosphatase 66 U/L (38-126); Anion Gap 13 mmol/L (4-12); Aspartate Amino Transferase 20 U/L (17-59); Bilirubin,Total 0.5 mg/dL (0.2-1.3); Blood Urea Nitrogen 6 mg/dL (9-20); Calcium 9.4 mg/dL (8.4-10.2); Carbon Dioxide 21 mmol/L (22-30); Chloride 102 mmol/L (98-107); Estimated CRCL calculation 102 ml/min; Estimated Glomerular Filt Rate > 60; Glucose 285 mg/dL (65-110); Potassium 4.1 mmol/L (3.4-5.0); Sodium 136 mmol/L (137-145); Total Protein 8.2 g/dL (6.3-8.2)
[2025-01-15 17:20] LABS: Thyroid Stimulating Hormone 2.900 uIU/mL (0.465-4.680)
--- OUTSIDE RECORDS SUMMARY | 2025-01-15 17:42 | XMS_ITS | Clinical Summary ---
Author Organization [facility] Address [address] [address] Phone Care Team Providers Care Box Office Manager Name Role Phone Rony Mckenzie MD Primary Care Provider [phone] Allergies Active Allergy Reactions Criticality Noted Date [...] - 12/18/2024 11:59 PM CDT [facility] [address] [place] [address] Makayla Humphrey MD Discharge Disposition: Discharged to home or Selfcare 12/18/2024 Travel 12/18/2024 Transcribe [facility] Ad[facility] [address] [place] [address] Makayla Humphrey MD Gangrenous pneumonia (HCC) (Primary [...] [facility] - Neurology - [place] [address] [place] [address] Jordon Echeverria MD [address] [place] [address] Health Maintenance Due Date Last Done Comments [...] Amanda Caraballo M.D. TW: TW Report ID: [id number] Reading Location: [id number] Procedure Note Amanda Caraballo MD - 12/27/2024 [...] Amanda Caraballo M.D. TW: TW Report ID: [id number] Reading Location: [place] [address] IMPRESSION: 1. Focal opacity in the periphery of the inferior right upper lobe suspicious for pneumonia with cavitary process suspected just superior to this. CT scan of the chest is recommended for further evaluation at this time. Comparison with any prior available imaging studies would also be of significant benefit. Makayla Humphrey MD [facility] ORDER[place] Fin al Result * (ABNORMAL) CBC WITH AUTO DIFFERENTIAL (12/18/2024 1:26 PM CDT) WBC 11.16 4.00 - 12.00 10(3)/mcL 12/18/2024 2:14 PM CDT [facility] RBC 4.65 4.40 - 5.80 10(6)/mcL 12/18/2024 2:14 PM CDT [facility] HEMOGLOBIN (HGB) 13.3 13.0 - 16.5 g/dL 12/18/2024 2:14 PM CDT [facility] HEMATOCRIT (HCT) 40.5 38.0 - 50.0 % 12/18/2024 2:14 PM CDT [facility] MCV 87.1 82.0 - 96.0 fL 12/18/2024 2:14 PM CDT [facility] MCH 28.6 26.0 - 32.0 pg 12/18/2024 2:14 PM CDT [facility] MCHC 32.8 31.0 - 36.0 g/dL 12/18/2024 2:14 PM CDT [facility] PLATELET COUNT 309 140 - 440 10(3)/mcL 12/18/2024 2:14 PM CDT [facility] RDW 15.1 11.8 - 15.5 % 12/18/2024 2:14 PM CDT [facility] MPV 8.7 8.0 - 12.6 fL 12/18/2024 2:14 PM CDT [facility] NEUTROPHILS 67.5 40.0 - 68.0 % 12/18/2024 2:14 PM CDT [facility] LYMPHOCYTES 22.6 19.0 - 49.0 % 12/18/2024 2:14 PM CDT [facility] MONOCYTES 7.8 3.0 - 13.0 % 12/18/2024 2:14 PM CDT [facility] EOSINOPHILS 1.3 0.0 - 8.0 % 12/18/2024 2:14 PM CDT [facility] BASOPHILS 0.5 0.0 - 1.0 % 12/18/2024 2:14 PM CDT [facility] IMMATURE GRANULOCYTE 0.3 0.0 - 0.4 % 12/18/2024 2:14 PM CDT [facility] Comment:Immature Granulocyte s includes Metamyelocytes, Myelocytes, and Promyelocytes. ABSOLUTE NEUTROPHILS 7.53(H) 1.40 - 5.30 10(3)/mcL 12/18/2024 2:14 PM CDT [facility] ABSOLUTE LYMPHOCYTES 2.52 0.90 - 3.30 10(3)/mcL 12/18/2024 2:14 PM CDT [facility] ABSOLUTE MONOCYTES 0.87 0.10 - 0.90 10(3)/mcL 12/18/2024 2:14 PM CDT [facility] ABSOLUTE EOSINOPHIL 0.15 0.00 - 0.50 10(3)/mcL 12/18/2024 2:14 PM CDT [facility] ABSOLUTE BASOPHILS 0.06 0.00 - 0.10 10(3)/mcL 12/18/2024 2:14 PM CDT [facility] ABSOLUTE IMMATURE GRANULOCYTE 0.03 0.00 - 0.03 10 (3) mcL. 12/18/2024 2:14 PM CDT [facility] NRBC PER 100 WBC 0 12/19/19 2:14 PM CDT [facility] Blood Venipuncture / Unknown 12/18/2024 1:26 PM CDT 12/18/2024 2:09 PM CDT us Makayla Humphrey MD HEMATOLOGY ORDERABLES Final R esult [facility] [address] [place] [address] * (ABNORMAL) CMP (COMPREHENSIVE METABOLIC PANEL) (12/18/2024 1:26 PM CDT) SODIUM 134(L) 136 - 145 mmol/L 12/18/2024 2:45 PM [address] [facility] POTASSIUM 4.6 3.5 - 5.1 mmol/L 12/18/2024 2:45 PM CDT [facility] CHLORIDE 102 98 - 107 mmol/L 12/18/2024 2:45 PM CD[address] [facility] CO2, VENOUS 21(L) 22 - 30 mmol/L 12/18/2024 2:45 PM CDT [facility] ANION GAP 15.6 <18.0 mmol/L 12/18/2024 2:45 PM CD[address] [facility] GLUCOSE 354(H) 70 - 99 mg/dL 12/18/2024 2:45 PM CDT [facility] BUN 17 9 - 21 mg/dL 12/18/2024 2:45 PM CD[address] [facility] CREATININE, BLOOD 0.78 0.70 - 1.30 mg/dL 12/18/2024 2:45 PM [address] [facility] BUN/CREATININE RATIO 22(H) 12 - 20 ratio 12/18/2024 2:45 PM [address] [facility] TOTAL PROTEIN 8.6(H) 6.0 - 8.0 g/dL 12/18/2024 2:45 PM CDT [facility] ALBUMIN 4.5 3.5 - 5.0 g/dL 12/18/2024 2:45 PM CDT [facility] A/G RATIO 1.1 1.0 - 2.2 12/18/2024 2:45 PM [address] [facility] CALCIUM 9.7 8.7 - 10.5 mg/dL 12/18/2024 2:45 PM CD[address] [facility] T BILI 0.3 0.2 - 1.2 mg/dL 12/18/2024 2:45 PM CD[address] [facility] SGOT (AST) 20 <43 U/L 12/18/2024 2:45 PM CD[address] [facility] SGPT (ALT) 18 <56 U/L 12/18/2024 2:45 PM CD[address] [facility] ALKALINE PHOSPHATASE 76 40 - 150 U/L 12/18/2024 2:45 PM CDT [facility] IS THE PATIENT REQUIRED TO BE FASTING? No 12/18/2024 2:45 PM [address] [facility] GFR, ESTIMATED >60 >=60 12/18/2024 2:45 PM [address] [facility] Comment: Creatinine Clearance is the preferred criteria for selecting drug dose adjustments in renally impaired patients. The GFR is provided as additional pertinent clinical information. GFR is reported in mL/min/1.73 sq m. Calculation based on the Chronic Kidney Disease Epidemiology Collaboration (CKD- EPI) equation refit without adjustment for race. GFR, EST. >60 >=60 2:[address] PM [address] [facility] GFR, EST. NONAFRICAN >60 >=60 12/18/2024 2:45 PM CDT [facility] Blood Venipuncture / Unknown 12/18/2024 1:26 PM CDT 12/18/2024 2:09 PM CDT Makayla Humphrey MD CHEMISTRY ORDERABLES Final Re sult [facility] [address] [place] [address] * C-REACTIVE PROTEIN (CRP) QUANT (12/18/2024 1:26 PM CDT) C-REACTIVE PROTEIN 0.21 <0.50 mg/dL 12/18/2024 4:26 PM CDT [facility] Blood Venipuncture / Unknown 12/18/2024 1:26 PM CDT 12/18/2024 2:09 PM CDT Makayla Humphrey MD CHEMISTRY ORDERABLES Final Re sult Performing Organization Address City/[facility]/ZIP Co de Phone Number [facility] [address] [place] [address] from Last 3 Months [facility] Care Teams Box Office Manager Relationship Specialty Start Date End Date Rony Mckenzie MD [address] [place] [address] PCP - General Internal Medicine 12/10/22
[2025-01-15 19:48] LABS: Cannabinoid Screen Urine Negative (Negative)
[2025-01-15 19:56] LABS: Add Urine Microscopic? NO; Appearance Urine Clear (Clear); Glucose Urine UA 3+ mg/dL (Negative); Leukocyte Esterase Ur Negative LEU/UL (Negative); Nitrate Urine Negative (Negative); Specific Grav Ur 1.045 (1.001-1.035)
[2025-01-15 22:36] VITALS: BP 108/79; PULSE 72; RESP 18; O2SAT 98
--- NOTE | 2025-01-15 22:38 | PC.NURSE ---
Pt has hx of epilepsy, last seizure was 01/11 @ 2300 and another 01/12 1000 the next morning.
[2025-01-15] MEDS: LACTATED RINGERS 1,000 ML 999 ML IV CONT ×2 (23:08→23:09)
== END 2025-01-16 00:12 | disposition home or self-care (01) ==
PROVIDERS: Registered Nurse; Emergency Provider Student in an Organized Health Care Education/Training Program
DX: R44.3 Hallucinations, unspecified (principal); E86.0 Dehydration; E11.65 Type 2 diabetes mellitus with hyperglycemia; I10 Essential (primary) hypertension; J44.9 Chronic obstructive pulmonary disease, unspecified; E78.5 Hyperlipidemia, unspecified; G40.909 Epilepsy, unspecified, not intractable, without status epilepticus; F41.9 Anxiety disorder, unspecified; F32.A Depression, unspecified; F17.210 Nicotine dependence, cigarettes, uncomplicated; Z79.4 Long term (current) use of insulin; Z79.84 Long term (current) use of oral hypoglycemic drugs; Z79.899 Other long term (current) drug therapy
CPT/HCPCS: 36415; 70450; 71046; 80053; 80307; 81003; 82077; 84443; 85025; 96360; 99284; J7120

== ENCOUNTER 2025-05-03 16:14 | Emergency (ER) | payer OTHER, SELFPAY ==
--- NOTE | ~2025-05-03 | CT_ITS ---
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 Chest and abdomen pain. TECHNIQUE: Computed tomography (CT) of the chest, abdomen, and pelvis was performed with 100 cc Omnipaque 350 intravenous contrast. The dose-length product was 417.10 mGy-cm. Automated exposure control and iterative reconstruction technique were employed. COMPARISON: CT dated 11/16/2024 FINDINGS: Chest/abdomen/pelvis CT: No significant pleural or pericardial effusion. No vascular abnormality. No lymphadenopathy. Fatty infiltration of the liver. Gallbladder is contracted. The spleen, pancreas, adrenal glands and right kidney are unremarkable. There are left renal cysts. No significant vascular abnormality. No lymphadenopathy. No free air or free fluid. Improved right upper lobe pneumonia with cavitary changes, likely sequela of chronic infection. No endobronchial lesions. No pneumothorax. No pulmonary nodules or masses. No free air or free fluid. No abnormal pelvic masses or fluid collections. Moderate thoracic and lumbar spondylosis. There is levoscoliosis of the lumbar spine. IMPRESSION: 1. Improved right upper lobe pneumonia with residual scarring and cavitation. Reviewed, dictated and finalized at location [facility]. [facility]ER
--- OUTSIDE RECORDS SUMMARY | 2025-05-03 16:16 | XMS_ITS | Clinical Summary ---
Author Organization [facility] Address [address] [address] Phone Care Team Providers Care Title Abstractor Name Role Phone Rony Mckenzie MD Primary Care Provider [phone] Jordon Echeverria MD Unavailable [phone] Allergies Active Allergy Reactions Criticality Noted Date Comments Hydrocodone Rash 12/10/2022 Penicillins Rash 12/10/2022 Medications cetirizine (ZyrTEC) 10 MG Tablet Take 10 mg by mouth daily. Active amLODIPine (NORVASC) 10 MG Tablet Take 10 mg by mouth daily. Active escitalopram (LEXAPRO) 10 MG Tablet Take 10 mg by mouth daily. Active gabapentin (NEURONTIN) 300 MG Capsule Take 300 mg by mouth nightly. Active ibuprofen (MOTRIN) 800 MG Tablet Take 800 mg by mouth every 8 hours. Active lidocaine (LIDODERM) 5 % Patch 1 [...] Take 20 mg by mouth daily. Active Jardiance 25 MG Tablet TAKE 1 TABLET BY MOUTH ONCE DAILY FOR DIABETES Active levETIRAcetam extended release (ELEPSIA XR) 750 MG TABLET SR 24 HR Take 2 Tablets by mouth nightly. 180 Tablet 1 5 Active divalproex (DEPAKOTE) 500 MG Tablet Delayed Response Take 1 Tablet by mouth 2 times daily. 180 Tablet 2 5 Active Encounters Date Type Department Care Team Description 03/20/2025 Results Follow-Up [facility] Neurology [facility] [address] [place] [address] Leanne Pimentel RN EEG AWAKE OR DROWSY ROUTINE 03/15/2025 10:30 AM CDT EEG [facility] [address] [place] [address] Jordon Echeverria MD Seizures (HCC) Discharge Disposition: Discharged to home or Selfcare 03/15/2025 Travel 03/11/2025 3:00 PM CDT Office Visit [facility] Neurology [facility] [address] [place] [address] Jordon Echeverria MD Seizures (HCC) (Primary Dx); Memory loss Discharge Disposition: Discharged to home or Selfcare 03/11/2025 Travel from Last 3 Months Family History Medical History Relation Name Comments Diabetes Mother Heart Attack Mother Stroke Mother Breast Cancer Sister Relation Name Status Comments Mother Sister Social History Tobacco Use Types Packs/Day Years Used Date Smoking Tobacco: Every Day Cigarettes 1 37.8 Started: 06/27/1987 Smokeless Tobacco: Never Tobacco Cessation:Ready to Q uit: No; Counseling Given: Yes Alcohol Use Standard Drinks/Week Comments Not Currently 0 (1 standard drink = 0.6 oz pur e alcohol) Sex and Gender Information Value Date Recorded Sex Assigned at Not on file Legal Sex Male 9:13 PM CDT Gender Identity Not on file Sexual Orientation Not on file Last Filed Vital Signs Vital Sign Reading Time Taken Comments Blood Pressure 128/64 03/11/2025 2:39 PM CDT Pulse 78 03/11/2025 2:39 PM CDT Temperature 36.7 C (98.1 F) 03/11/2025 2:39 PM CDT Respiratory Rate 16 03/11/2025 2:39 PM CDT Oxygen Saturation 99% 03/11/2025 2:39 PM CDT Inhaled Oxygen Concentration - - Weight 71.9 kg (158 lb 8 oz) 03/11/2025 2:39 PM CDT Height 170.2 cm (5' 7) 03/11/2025 2:39 PM CDT Body Mass Index 24.82 03/11/2025 2:39 PM CDT Plan of Treatment Upcoming Encounters Date Type Department Care Team (Late st Contact Info) Description 06/13/2025 10:30 AM 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 Office Visit [facility] - [facility]rology - [place] [address] [place] [address] Maryann Hsieh APRN, OCC THER [address] [place] [address] Health Maintenance Due Date Last Done Comments Hepatitis C Virus (HCV) Screening 1976 Hepatitis B Immunization (1 of 3 - 19+ 3-dose series) 1995 Cologuard 2021 Colonoscopy 2021 Colorectal Cancer Screening 2021 Immunochemical Fecal Occult Blood 2021 SARS-COV-2 Immunization ( - 2024- season) 2025 Respiratory Syncytial Virus (RSV) Immunization (Adult) (1 - 1-dose 75+ series) 2051 DTaP/Tdap/Td Immunization Discontinued 03/19/2019, TdaP Immunization Completed 03/19/2019, 03/23/2016 Pneumococcal Immunization Combined Completed 08/24/2024, 12/25/2019 Influenza Immunization Completed 5, 03/08/2024, 07/19/2023, Additional history exists Human Papillomavirus (HPV) Immunization Aged Out No longer eligible based on patient's age to complete this topic Meningococcal Immunization (ACWY) Aged Out No longer eligible based on patient's age to complete this topic Rotavirus Immunization Aged Out No lo nger eligible based on patient's age to complete this topic Procedures Procedure Name Priority Date/Time Associated Diagnosis Comments EEG AWAKE OR DROWSY ROUTINE Routine 03/15/2025 10:30 AM CDT Seizures (HCC) from Last 3 Months Results * EEG AWAKE OR DROWSY ROUTINE (03/15/2025 10:30 AM CDT) Narrative Jordon Echeverria MD - 03/15/2025 10:30 AM CDT Jordon Echeverria MD 03/18/2025 8:46 PM Electroencephalography Date of EE03/15/25 Clinical History: The patient is a 49 year old male who has been experiencing episodes of seizure. EEG Description: This EEG was recorded on a [place] with 18 cranial leads and an EKG. The International 10-20 system was used for electrode placement. Background: The recording was done during wakefulness and drowsiness. There was a normal 9 hz posterior dominant rhythm, with a normal posterior to anterior gradient. Sleep: No sleep architecture noted. Activation Procedures: Hyperventilation produced no epileptic discharges. Photic stimulation shows good driving. Epileptic Discharges: No epileptic discharges noted. Interpretation: This is a normal EEG during wakefulness and drowsiness. No epileptic discharges were seen. A normal EEG does not rule out seizure and clinical correlation is recommended. us Jordon Echeverria MD NEUROLOGY ORDERABLES Final R esult from Last 3 Months Insurance MEDICAID [employer] [facility] Care Teams Title Abstractor Relationship Specialty Start Date End Date Rony Mckenzie MD [address] [facility] [address] [place] [address] PCP - General Internal Medicine 12/10/22 Jordon Echeverria MD [address] [place] [address] Consulting Physician Neurology 03/11/25
--- OUTSIDE RECORDS SUMMARY | 2025-05-03 16:16 | XMS_ITS | Clinical Summary ---
Author Organization [facility] Address [address] [place] [address] Care Team Providers Care Stencil Inspector Name Role Phone Rony Mckenzie MD Primary Care Provider [phone] Allergies Active Allergy Reactions Criticality Noted Date Comments Hydrocodone Rash Medium 12/10/2022 Hydrocodone-Acetaminophen Rash Medium 03/20/2025 Penicillins Rash Medium 12/10/2022 Medications divalproex ER (DEPAKOTE ER) 500 mg 24 hr tablet 7 Active brivaracetam (BRIVIACT) 50 mg tablet Take 50 mg by mouth 2 (two) times a day. Take one tablet of 50 mg tablet by mouth twice a day 60 tablet 3 7 Active FLUoxetine 10 mg capsule Take 1 tablet/capsule (10 mg total) by mouth daily 4 Active FLUoxetine (PROzac) 20 mg capsule Take 1 capsule (20 mg total) by mouth daily 4 Active ARIPiprazole (ABILIFY) 15 mg tablet Take 1 tablet (15 mg total) by mouth daily 4 Active propranoloL (INDERAL) 20 mg tablet Take 1 tablet (20 mg total) by mouth 4 Active amLODIPine (NORVASC) 10 mg tablet Take 1 tablet (10 mg total) by mouth daily 4 Active montelukast (SINGULAIR) 10 mg tablet Take 1 tablet (10 mg total) by mouth daily Active ibuprofen (ADVIL,MOTRIN) 800 mg tablet Take 1 tablet (800 mg total) by mouth daily as needed 4 Active losartan (COZAAR) 100 mg tablet Take 1 tablet (100 mg total) by mouth daily Active rosuvastatin (CRESTOR) 10 mg tablet Take 1 tablet (10 mg total) by mouth daily 4 Active benztropine (COGENTIN) 1 mg tablet Take 1 tablet (1 mg total) by mouth nightly 4 Active cloNIDine (CATAPRES-TTS) 0.1 mg/24 hr every 8 hours Act shelby Jardiance 25 mg tablet TAKE 1 TABLET BY MOUTH ONCE DAILY FOR DIABETES 5 Active cetirizine (ZyrTEC) 10 mg tablet Take 1 tablet (10 mg total) by mouth daily Active Symbicort 160-4.5 mcg/actuation inhaler INHALE 2 PUFFS BY MOUTH EVERY 12 HOURS Active azithromycin (ZITHROMAX) 500 mg tablet TAKE 1 TABLET BY MOUTH ONCE DAILY FOR 4 DAYS 5 Active albuterol HFA (PROVENTIL HFA,VENTOLIN HFA,PROAIR HFA) 90 mcg/actuation inhaler INHALE 2 PUFFS BY MOUTH EVERY 4 TO 6 HOURS NEEDED FOR SHORTNESS OF BREATH FOR 90 DAYS Active acetaminophen (TYLENOL) 500 mg tablet Take 1 tablet (500 mg total) by mouth every 4 (four) hours as needed Active metroNIDAZOLE (FLAGYL) 500 mg tablet TAKE 1 TABLET BY MOUTH EVERY 8 HOURS FOR 14 DAYS 5 Active metFORMIN XR (GLUCOPHAGE XR) 500 mg 24 hr tablet Take 1 tablet (500 mg total) by mouth daily Active lidocaine (LIDODERM) 5 % Place 1 patch on the skin daily Active levoFLOXacin (LEVAQUIN) 750 mg tablet TAKE 1 TABLET BY MOUTH ONCE DAILY FOR 14 DAYS 5 Active levETIRAcetam (KEPPRA) 500 mg tablet Take 1 tablet (500 mg total) by mouth 2 (two) times a day Active gabapentin (NEURONTIN) 300 mg capsule Take 1 capsule (300 mg total) by mouth nightly Active escitalopram (LEXAPRO) 10 mg tablet Take 1 tablet (10 mg total) by mouth daily Active ergocalciferol (VITAMIN D) 50,000 unit capsule [address] (Depakote) 125 mg EC tablet Take by mouth Act shelby pen needle, diabetic 32 gauge x needle Use to take insulin twice a day 200 each 3 5 Active Contour Plus Blue Meter misc as directed 5 Active Contour Plus Test Strip strip USE STRIP TO CHECK GLUCOSE 4 TIMES DAILY 5 Active Alcohol Prep Pads pads, medicated USE 1 PAD TOPICALLY 4 TIMES DAILYU 5 Active insulin NPH-insulin regular 70/30 (HumuLIN 70/30, NovoLIN 70/30) 100 unit/mL pen for injectionIndic ations:type 2 diabetes mellitus Take 14 units before breakfast and dinner For sugars over 200: take 16 units 30 mL 3 5 Active Dexcom G7 Sensor deviceIndicati ons:Type 2 diabetes mellitus with hyperglycemia, with long-term current use of insulin (HCC) Use for BG monitoring. Change sensor every 10 days. 9 each 3 5 Active insulin NPH-insulin regular 70/30 (HumuLIN 70/30, NovoLIN 70/30) 100 unit/mL pen for injection Take 10 units before breakfast and dinner For sugars over 200, take 12 units 15 mL 3 5 04/30/20 25 Discontinu ed(Reorder ) Dexcom G7 Sensor deviceIndicati ons:Type 2 diabetes mellitus with hyperglycemia, with long-term current use of insulin (HCC) Use for BG monitoring 3 each 11 5 04/30/20 25 Discontinu ed(Reorder ) Active Problems Problem Noted Date Diagnosed Date Allergic rhinitis 01/23/2025 Bulging lumbar disc 01/23/2025 Displacement of lumbar inter vertebral disc without myelopathy 01/23/2025 Hypertension associated with type 2 diabetes madeleine gimenezus 01/23/2025 Assessment & Plan (03/20/2025 12:36 PM CDT): Chronic problem. Controlled on current losartan 100mg daily, propranolol 20mg daily, amlodipine 10mg daily Will update labs. Does not mychart. Verified phone #/address to contact re: results. Hyperlipidemia associated with type 2 diabetes adrianna baca 01/23/2025 Assessment & Plan (03/20/2025 12:34 PM CDT): Chronic problem. Currently taking rosuvastatin 10mg daily. Will update lipid panel. Does not mychart. Verified phone #/address to contact re: results. Memory loss 01/23/2025 Refractory migraine 01/23/2025 Tobacco dependence 01/23/2025 Type II diabetes mellitus 01/23/2025 Assessment & Plan (03/20/2025 1:17 PM CDT): Chronic problem. A1c 13.4% 01/23/25 to now 12.0% stressed need to watch diet & cut out shakes, mocha frapps, sweet tea all day. -increase insulin by 4 units. Current medications: Metformin XR 2000 mg daily Jardiance 25mg daily Novolin 70/30 14 units before breakfast & dinner Take 16 units if blood sugar over 200 DM eye exam: 02/2024 Dr Braden in [place]. Letter sent to get copy of report. Will update labs. Does not mychart. Verified phone #/address to contact re: results. Discussed with Jared Meraz: Strive for regular exercise (30min most days) and diet (get at least 4-5 servings of fruit and veggies daily, avoid processed foods, increase lean protein intake and decrease carb portions as well as fruit juices, regular soda & desserts). Watch carbs and simple sugars. Check the blood sugar: Dexcom G7. Check the feet daily for skin breakdown and infection. Vitamin D deficiency 01/23/2025 Epilepsy undetermined as to focal or generalized 01/21/2017 Encounters Date Type Department Care Team Description 05/01/[address] [facility] Diabetes and Endocrinology [address] [place] [address] [phone] Leny Gonzalez NP 04/29/[address] [facility] Diabetes and Endocrinology [address] [place] [address] [phone] Leny Gonzalez NP Med Refill 03/28/[address] [facility] Diabetes and Endocrinology [address] [place] [address] [phone] Jocelynn Thompson MD 03/22/[address] [facility] Diabetes and Endocrinology [address] [place] [address] [phone] Jocelynn Thompson MD 03/22/2025 Results Follow-Up [facility] Diabetes and Endocrinology [address] [place] [phone] Leny Gonzalez, LINDA Lipid panel, Basic metabolic panel, Albumin Creatinine Ratio, Urine, eGFR 03/20/2025 1:30 PM CDT Lab [address] [address] Type 2 diabetes mellitus with hyperglycemia, with long-term current use of insulin (HCC); Hyperlipidemia associated with type 2 diabetes mellitus (HCC); Hypertension associated with type 2 diabetes mellitus (HCC) 03/20/2025 12:30 PM CDT Office Visit [facility] Diabetes and Endocrinology [address] [place] [phone] Leny Gonzalez NP Type 2 diabetes mellitus with hyperglycemia, with long-term current use of insulin (HCC) (Primary Dx); Hypertension associated with type 2 diabetes mellitus (HCC); Hyperlipidemia associated with type 2 diabetes mellitus (HCC) from Last 3 Months Immunizations Immunization Administration Dates Next Due Influenza, Quadrivalent, Split, Intramuscular ,03/23/2016 Influenza, Quadrivalent, Spl it, Preservative Free, Intramuscular 07/19/2023,03/20/2020 Influenza, Trivalent, Preservative Free, Intramu scular 03/08/2024 Pneumococcal Polysaccharide PPV23 12/25/2019 Tdap 03/19/2019,03/23/2016 Medical History Medical History Date Comments Seizures (HCC) Depression Family History Medical History Relation Name Comments Diabetes type II Mother Migraines Mother Seizures Mother Relation Name Status Comments Mother Social History Tobacco Use Types Packs/Day Years Used Date Smoking Tobacco: Every Day Smokeless Tobacco: Never Tobacco Cessation:Ready to Q uit: No Alcohol Use Standard Drinks/Week Comments No 0 (1 standard drink = 0.6 oz pur e alcohol) Sex and Gender Information Value Date Recorded Sex Assigned at Not on file Legal Sex Male 1:55 PM [employer] Gender Identity Not on file Sexual Orientation Not on file Last Filed Vital Signs Vital Sign Reading Time Taken Comments Blood Pressure 98/64 03/20/2025 12:29 PM CDT Pulse 65 03/20/2025 12:29 PM CDT Temperature 36.2 C (97.1 F) 04/18/2024 10:32 AM CDT Respiratory Rate 18 03/20/2025 12:29 PM CDT Oxygen Saturation 95% 04/18/2024 10:32 AM CDT Inhaled Oxygen Concentration - - Weight 72.2 kg (159 lb 1.6 oz) 03/20/2025 12:29 PM CDT Height 170.2 cm (5' 7.01) 03/20/2025 12:29 PM C DT Body Mass Index 24.91 03/20/2025 12:29 PM CDT Plan of Treatment Health Maintenance Due Date Last Done Comments Colon Cancer Screening-Colonoscopy 1976 Depression Screening 1976 Hepatitis C Screening 1976 Hepatitis B Screening 1994 Regular Well Visit/Exam 18-64 1994 Pneumococcal vaccine <65 (2 of 2 - PCV) 12/24/2020 12/25/2019 Influenza Vaccine (#1) 2025 4, 07/19/2023, 03/20/2020, Additional history exists Hemoglobin A1C 09/17/2025 03/20/2025, 01/23/2025 Albumin Creatinine Ratio, Urine 03/20/2026 Foot Exam 03/20/2026 03/20/2025 Lipid Panel 03/20/2026 03/20/2025 eGFR 03/20/2026 03/20/2025, 01/17/2025 Dilated Eye Exam 04/23/2026 04/23/2025 DTaP/Tdap/Td Vaccine (3 - Td or Tdap) 03/19/2029 03/19/2019, 03/23/2016 Procedures Procedure Name Priority Date/Time Associated Diagnosis Comments HM DIABETES EYE EXAM Routine 04/23/2025 7:31 AM CDT C-REACTIVE PROTEIN, QUANT Routine 03/22/2025 4:28 PM CDT ALBUMIN CREATININE RATIO, URINE Routine 03/20/2025 3:17 PM CDT Type 2 diabetes mellitus with hyperglycemia, with long-term current use of insulin (HCC) EGFR Routine 03/20/2025 1:36 PM CDT Type 2 diabetes mellitus with hyperglycemia, with long-term current use of insulin (HCC) Hypertension associated with type 2 diabetes mellitus (HCC) BASIC METABOLIC PANEL Routine 03/20/2025 1:36 PM CDT Type 2 diabetes mellitus with hyperglycemia, with long-term current use of insulin (HCC) Hypertension associated with type 2 diabetes mellitus (HCC) LIPID PANEL Routine 03/20/2025 1:36 PM CDT Type 2 diabetes mellitus with hyperglycemia, with long-term current use of insulin (HCC) Hyperlipidemia associated with type 2 diabetes mellitus (HCC) POCT HEMOGLOBIN A1C Routine 03/20/2025 1 2:47 PM CDT Type 2 diabetes mellitus with hyperglycemia, with long-term current use of insulin (HCC) POCT GLUCOSE Routine 03/20/2025 12:38 PM CDT Type 2 diabetes mellitus with hyperglycemia, with long-term current use of insulin (HCC) from Last 3 Months Results * DIABETES EYE EXAM (04/23/2025 7:31 AM CDT) Pathologist [facility] SCRIBED DIABETIC DILATED EYE EXAM Normal Result [facility] Historical Provider HEALTH MAINTENANCE Final Result * C-Reactive Protein, Quant (03/22/2025 4:28 PM CDT) Historical Provider LAB BLOOD ORDERABLES Anyi l Result * Albumin Creatinine Ratio, Urine (03/20/2025 3:17 PM CDT) Albumin Ur <12.0 mg/L Comment: Interpretive Data No reference range established. Current interpretive data was last revised 2018. Creatinine Ur 57.3 mg/dL MYA SORENSEN Comment: Interpretive Data No reference range established. Current interpretive data was last revised 2018. Albumin Creatinine Ratio, Ur <21 1 - 29 mg/g MYA SORENSEN Urine 03/20/2025 3:17 PM CDT 03/20/2025 6:17 PM CDT Leny R. Schleeper SERVICES REP LAB URINE ORDERABLES Anyi l Result Performing Organization Address [facility] Co de Phone Number MYA [address] [address] * eGFR (03/20/2025 1:36 PM CDT) eGFR >90 >=60 mL/min/1. 73 m2 Comment: Interpretive Data Reference Interval Normal >/= 90 mL/min/1.73m2 Mildly decreased* 60 - 89 mL/min/1.73m2 Mildly to moderately decreased 45 - 59 mL/min/1.73m2 Moderately to severely decreased 30 - 44 mL/min/1.73m2 Severely decreased 15 - 29 mL/min/1.73m2 Kidney Failure < 15 mL/min/1.73m2 *Relative to young adult level Estimated glomerular filtration rate is determined by the 2020 CKD-EPI equation recommended by the National Kidney Foundation (A Unifying Approach to GFR Estimation: Recommendations of the NKF-ASK Task Force on Reassessing the Inclusion of Race in Diagnosing Kidney Disease, JASN 2020). The CKD-EPI equation should not be used for patients with unstable renal function and has not been validated in children and those over 70. Current interpretive data was last reviewed 2021. Blood 03/20/2025 1:36 PM CDT 03/20/2025 6:20 PM CDT Leny Gonzalez SERVICES REP LAB BLOOD ORDERABLES Anyi l Result Performing Organization Address [facility] Co de Phone Number MYA [facility] [place] [address] * (ABNORMAL) Lipid panel (03/20/2025 1:36 PM CDT) Cholesterol 170 30 - 199 mg/dL Comment: Interpretive Data Ages < or = 19 years Acceptable: <170 mg/dL Borderline high: 170-199 mg/dL High: >or= 200 mg/dL Ages > or = 20 years Desirable: <200 mg/dL Borderline high: 200-239 mg/dL High: >or= 240 mg/dL Literature References: 1. Expert Panel on Integrated Guidelines for Cardiovascular Health and Risk Reduction in Children and Adolescents. Pediatrics 2011;128:S213 2. NCEP Expert Panel. Circulation 2004;110:227 Current Interpretive Data was last revised on 2018. Triglycerides 153(H) <=149 mg/dL MYA Comment: Interpretive Data Ages < or = 9 years Acceptable: <75 mg/dL Borderline high: 75-99 mg/dL High: >or= 100 mg/dL Ages 10 to 20 years Acceptable: <90 mg/dL Borderline high: 90-129 mg/dL High: >or= 130 mg/dL Ages > or = 20 years Desirable: <150 mg/dL Borderline high: 150-199 mg/dL High: 200-499 mg/dL Very high: >or= 499 mg/dL Literature References: 1. Expert Panel on Integrated Guidelines for Cardiovascular Health and Risk Reduction in Children and Adolescents. Pediatrics 2011;128:S213 2. NCEP Expert Panel. Circulation 2004;110:227 Current Interpretive Data was last revised on 2018. HDL 39(L) >=40 mg/dL MYA Comment: Interpretive Data Ages < or = 19 years Acceptable: >45 mg/dL Borderline low: 40-45 mg/dL Low: <40 mg/dL Ages > or = 20 years Desirable: >or= 60 mg/dL Low: <40 mg/dL Literature References: 1. Expert Panel on Integrated Guidelines for Cardiovascular Health and Risk Reduction in Children and Adolescents. Pediatrics 2011;128:S213 2. NCEP Expert Panel. Circulation 2004;110:227 Current Interpretive Data was last revised on 2018. LDL, calculated 104 <=129 mg/dL MYA Comment: Interpretive Data Ages < or = 19 years Acceptable: <110 mg/dL Borderline high: 110-129 mg/dL High: >or= 130 mg/dL Ages > or = 20 years Optimal: <100 mg/dL Near optimal: 100-129 mg/dL Borderline high: 130-159 mg/dL High: >160 mg/dL Calculated using the Forrest LDL-C estimating equation. This equation was implemented on 2024. Prior to this date LDL-C was estimated using the Friedewald equation. Literature References: 1. Expert Panel on Integrated Guidelines for Cardiovascular Health and Risk Reduction in Children and Adolescents. Pediatrics 2011;128:S213 2. NCEP Expert Panel. Circulation 2004;110:227 3. Lon M et al. LINDA Cardiol. 2020 October 25;5(5):540-548. doi: 10.1001/jamacardio.2020.0013 Current Interpretive Data was last revised on 2024. Non-HDL Cholesterol 131 mg/dL [facility] Comment: Interpretive Data Ages < or = 19 years Acceptable: <120 mg/dL Borderline high: 120-144 mg/dL High: >145 mg/dL Ages > or = 20 years When triglycerides are >200 mg/dL, Non-HDL cholesterol is a secondary target of therapy with treatment goals that are 30 mg/dL greater than the LDL cholesterol target. Literature References: 1. Expert Panel on Integrated Guidelines for Cardiovascular Health and Risk Reduction in Children and Adolescents. Pediatrics 2011;128:S213 2. NCEP Expert Panel. Circulation 2004;110:227 Current Interpretive Data was last revised on 2018. Chol/HDL ratio 4 [facility] Blood 03/20/2025 1:36 PM CDT 03/20/2025 6:20 PM CDT us Leny Gonzalez SERVICES REP LAB BLOOD ORDERABLES Anyi rhonda Result [facility] [address] [facility] Department [place] [address] * Basic metabolic panel (03/20/2025 1:36 PM CDT) Pathologist [facility] Sodium 138 135 - 145 mmol/L Potassium, pl 4.2 3.3 - 4.9 mmol/L [facility] Chloride 101 97 - 110 mmol/L [facility] CO2 26 22 - 32 mmol/L [facility] Anion gap 11 2 - 15 mmol/L [facility] BUN 11 6 - 25 mg/dL [facility] Creatinine 0.82 0.80 - 1.30 mg/dL [facility] Glucose 177 70 - 199 mg/dL [facility] Comment: Interpretive Data Fasting glucose >/= 126 mg/dl is diagnostic for diabetes. Fasting is defined as no caloric intake for at least 8 hours. Fasting glucose between 100 mg/dl to 125 mg/dl is diagnostic of prediabetes. In a patient with classic symptoms of hyperglycemia or hyperglycemic crisis, a random glucose >/= 200 mg/dl is diagnostic for diabetes. In the absence of unequivocal hyperglycemia, results should be confirmed by repeat testing. The classification and Diagnosis of Diabetes Diabetes Care 2021; 46: S19-S40. Current interpretive data was last revised 2022. Calcium 10.0 8.5 - 10.3 mg/dL MYA SORENSEN Blood 03/20/2025 1:36 PM CDT 03/20/2025 6:20 PM CDT us Leny Gonzalez NP LAB BLOOD ORDERABLES Anyi l Result MYA [address] [facility] Department [place] [address] * (ABNORMAL) POCT hemoglobin A1c (03/20/2025 12:47 PM CDT) Hemoglobin A1C, POC 12.0(A) 4.0 - 5.6 % Blood 03/20/2025 12:4 7 PM CDT us Leny Gonzalez NP POINT OF CARE TEST ORDERA BLES Final Result * POCT glucose (03/20/2025 12:38 PM CDT) Glucose Blood, POC 259 Normal Fasting 70 - 100, Random <200 mg/dL Blood 03/20/2025 12:3 8 PM CDT us Leny Gonzalez NP POINT OF CARE TEST ORDERA BLES Final Result from Last 3 Months Insurance [employer] [facility] [employer] [facility] Member Subscriber Plan / Payer (Ef fective 2024-Present) Name:Jared Meraz Relation to Subscriber:Self Name:Jared Meraz Payer ID:[id number] (NAIC) Group ID:Not on file Type:MEDICAID RISK OTHER Address: [facility] [id number] [place] [id number] Care Teams Stencil Inspector Relationship Specialty Start Date End Date Rony Mckenzie MD [address] [place] [address] [place] [id number] PCP - General Internal Medicine 12/30/16
[2025-05-03 16:18] VITALS: BP 109/67; PULSE 86; RESP 16; TEMP 36.3; O2SAT 99
--- NOTE | 2025-05-03 18:10 | ED.GENADULT ---
HPI - General Adult General Chief complaint: Unspecified <TARSHA Blakely Last Filed: 05/03/25 19:27> Stated complaint: LEFT FLANK PAIN <TARSHA Blakely Last Filed: 05/03/25 19:27> Time Seen by Provider: 05/03/25 18:10 <TARSHA Blakely Last Filed: 05/03/25 19:27> Focused HPI: Patient is a 50 y/o male, with PMH of seizure disorder, who presents to the ED with c/o L flank pain. Patient reports he had 2 seizures recently, around 5 days ago. Unsure exactly how he fell or injured himself, but has had pain throughout his L sided abdomen, chest, flank since then. Noticed an abrasion/burn solo to his L mid abdomen after the incident. Pain worse w/ deep breathing. Denies feeling SOB. Has been taking Ibuprofen for pain with some improvement. GENERAL: Well-appearing, well-nourished, and in no acute distress. HEAD: Normocephalic, atraumatic. CHEST: Clear to auscultation. ?No respiratory distress. HEART: Regular rate and rhythm.? ABD: TTP throughout L mid to upper abdomen, L lower anterior chest wall/inferior rib cage. Approx 6cm area of skin abrasion vs superficial burn to L lateral mid abdomen. No significant localized vesicular lesions. NEURO: ?Alert and oriented x3. Patient screened in triage and initial orders placed.? ?Additional care and disposition to be based upon?diagnostic testing and treatment. <TARSHA Blakely Last Filed: 05/03/25 19:27> Source: patient <TARSHA Blakely Last Filed: 05/03/25 19:27> Mode of arrival: ambulatory <TARSHA Blakely Last Filed: 05/03/25 19:27> Limitations: no limitations <TARSHA Blakely Last Filed: 05/03/25 19:27> Related Data Home medications: Home Medications ?Medication ?Instructions ?Recorded ?Confirmed ?Last Taken ?Type amlodipine 10 mg tablet 10 mg PO DAILY 12/22/23 12/17/24 11/15/24 History aripiprazole 15 mg tablet 15 mg PO DAILY 12/22/23 12/17/24 11/15/24 History benztropine 1 mg tablet 1 mg PO DAILY 12/22/23 12/17/24 11/15/24 History gabapentin 300 mg capsule 300 mg PO DAILY 12/22/23 12/17/24 11/15/24 History ibuprofen 800 mg tablet 800 mg PO DAILY 12/22/23 12/17/24 11/15/24 History losartan 100 mg tablet 100 mg PO DAILY 12/22/23 12/17/24 11/15/24 History metformin 500 mg tablet,extended 1,000 mg PO BID 12/22/23 12/17/24 11/15/24 21:00 History release 24 hr propranolol 20 mg tablet 20 mg PO DAILY 12/22/23 12/17/24 11/15/24 History rosuvastatin 10 mg tablet 20 mg PO DAILY 12/22/23 12/17/24 11/15/24 History divalproex 250 mg tablet,delayed 250 mg PO Q8H 11/16/24 12/17/24 Unknown History release (Depakote) empagliflozin 25 mg tablet 25 mg PO DAILY 11/16/24 12/17/24 Unknown History (Jardiance) fluoxetine 40 mg capsule 40 mg PO DAILY 11/16/24 12/17/24 Unknown History levetiracetam 500 mg tablet 500 mg PO BID 11/16/24 12/17/24 Unknown History (Keppra) <Lisa Martino PA-C - Last Filed: 05/03/25 19:27> Allergies/adverse reactions: Allergies Allergy/AdvReac Type Severity Reaction Status Date / Time Penicillins Allergy Unknown Rash Verified 05/03/25 21:53 hydrocodone Allergy Rash Verified 05/03/25 21:53 <TARSHA Blakely Last Filed: 05/03/25 19:27> [facility] Past Medical History Medical History: Medical History Diabetes mellitus Bipolar disorder COPD (chronic obstructive pulmonary disease) Hyperlipidemia Anxiety Depression Hypertension Epilepsy <Lisa Matrino PA-C - Last Filed: 05/03/25 19:27> Surgical History Surgical History: Surgical History History of spinal surgery <Lisa Martino PA-C - Last Filed: 05/03/25 19:27> Family History Family History: Family History Other Unknown family medical history <Lisa Martino PA-C - Last Filed: 05/03/25 19:27> Social History Social History: Social History Social History: The patient is and lives with his significant other Wanda. He has 1 daughter. He has smoked approximately 1.5 packs of cigarettes per day and started smoking at the age of 13. He denies any history of heavy alcohol use. 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 Code status: Full code Surrogate decision maker: His daughter or his significant other Wanda Smoking packs per day: 1.5 Smoking cigarettes per day: 30.0 Years smoked: 36 Smoking pack-years: 54.00 Alcohol intake: former Substance use: never Do You Feel Safe in your Home?: Yes Lack of Transportation: No Lack of Food: Never True Current Housing: I Have Housing Concerned About Future Housing: No Difficulty Paying Gas/Electric Bills: No Difficulty Paying for Meds: No Currently Unemployed: No Education: Grade School Difficulty w/ Childcare or Family Care: No Spiritual care concerns: No <Lisa Martino PA-C - Last Filed: 05/03/25 19:27> Exam Narrative: APPEARANCE: No apparent distress. Head: atraumatic. EYES: EOMI, NOSE: Atraumatic NECK: Trachea midline RESPIRATORY: No increased rate of breathing clear to auscultation CARDIOVASCULAR: RRR, no peripheral edema ABDOMINAL: Non-distended soft nontender no guarding rebound MUSCULOSKELETAl: No obvious deformities NEURO: Alert. Moving 4/4 extremities SKIN:: 4 cm friction burn on the left abdomen PSYCHIATRIC: Normal affect <Keith Parker MD - Last Filed: 05/04/25 02:25> Course Vital Signs Vital signs: Vital Signs Temperature 97.3 F L 05/03/25 16:18 Pulse Rate 86 05/03/25 16:18 Respiratory Rate 16 05/03/25 16:18 Blood Pressure 109/67 05/03/25 16:18 Pulse Oximetry 99 05/03/25 16:18 Temperature 98.4 F 05/03/25 21:55 Pulse Rate 63 05/03/25 23:39 Respiratory Rate 18 05/03/25 23:39 Blood Pressure 138/90 05/03/25 23:39 Pulse Oximetry 96 05/03/25 23:39 Oxygen Delivery Room Air 05/03/25 21:49 <Lisa Martino PA-C - Last Filed: 05/03/25 19:27> Vital Signs Temperature 97.3 F L 05/03/25 16:18 Pulse Rate 86 05/03/25 16:18 Respiratory Rate 16 05/03/25 16:18 Blood Pressure 109/67 05/03/25 16:18 Pulse Oximetry 99 05/03/25 16:18 Temperature 98.4 F 05/03/25 21:55 Pulse Rate 63 05/03/25 23:39 Respiratory Rate 18 05/03/25 23:39 Blood Pressure 138/90 05/03/25 23:39 Pulse Oximetry 96 05/03/25 23:39 Oxygen Delivery Room Air 05/03/25 21:49 <Keith Parker MD - Last Filed: 05/04/25 02:25> Medical Decision Making MDM Narrative Medical decision making narrative: MSE by ANANDA in triage. <Lisa Martino PA-C - Last Filed: 05/03/25 19:27> MSE by ANANDA in triage. -Course: 50-year-old male presenting with left-sided abdominal pain 5 days after having seizure falling out of bed. On exam he has a small friction burn over his abdomen but no significant tenderness over the ribs or belly. CT chest abdomen pelvis ordered from triage. This did not reveal any acute traumatic injuries. They did note resolving pneumonia in the right upper lobe although the patient does not have any signs of pneumonia or recent illness. Patient be discharged follow-up with primary care physician. -DDX includes but is not limited to: Friction burn, cracked rib, intra-abdominal pathology <Keith Parker MD - Last Filed: 05/04/25 02:25> Vital Signs Vital Signs: Vital Signs Temperature 97.3 F L 05/03/25 16:18 Pulse Rate 86 05/03/25 16:18 Respiratory Rate 16 05/03/25 16:18 Blood Pressure 109/67 05/03/25 16:18 Pulse Oximetry 99 05/03/25 16:18 Temperature 98.4 F 05/03/25 21:55 Pulse Rate 63 05/03/25 23:39 Respiratory Rate 18 05/03/25 23:39 Blood Pressure 138/90 05/03/25 23:39 Pulse Oximetry 96 05/03/25 23:39 Oxygen Delivery Room Air 05/03/25 21:49 <Lisa Martino PA-C - Last Filed: 05/03/25 19:27> Vital Signs Temperature 97.3 F L 05/03/25 16:18 Pulse Rate 86 05/03/25 16:18 Respiratory Rate 16 05/03/25 16:18 Blood Pressure 109/67 05/03/25 16:18 Pulse Oximetry 99 05/03/25 16:18 Temperature 98.4 F 05/03/25 21:55 Pulse Rate 63 05/03/25 23:39 Respiratory Rate 18 05/03/25 23:39 Blood Pressure 138/90 05/03/25 23:39 Pulse Oximetry 96 05/03/25 23:39 Oxygen Delivery Room Air 05/03/25 21:49 <Keith Parker MD - Last Filed: 05/04/25 02:25> Discharge Plan Discharge Clinical Impression: Friction burn <TARSHA Blakely Last Filed: 05/03/25 19:27> Patient Disposition: Home <TARSHA Blakely Last Filed: 05/03/25 19:27> Condition: Stable <TARSHA Blakely Last Filed: 05/03/25 19:27> Instructions: Antibiotic Form, Abrasion (ED) <TARSHA Blakely Last Filed: 05/03/25 19:27> Additional Instructions: Using emergency department for left-sided abdominal pain. You have a friction burn and muscle strain from your fall. This will resolve on its own. Please use Motrin Tylenol and lidocaine patches for pain. If you develop any new or worsening symptoms return to the ED. <Lisa Martino PA-C - Last Filed: 05/03/25 19:27> Patient Language: Amharic <Lisa Martino PA-C - Last Filed: 05/03/25 19:27> Prescriptions: New ibuprofen 800 mg tablet 800 mg PO TID PRN (Reason: pain) 7 Days Qty: 21 0RF acetaminophen 500 mg tablet 1,000 mg PO TID PRN (Reason: mariela) 7 Days Qty: 42 0RF methocarbamol 750 mg tablet 1,500 mg PO TID Qty: 45 0RF lidocaine 5 % adhesive patch,medicated 1 patch topical DAILY Qty: 15 0RF Rx Instructions: leave on most painful area for up to 12 hrs No Action ibuprofen 800 mg tablet 800 mg PO DAILY Patient Comments: Takes HS amlodipine 10 mg tablet 10 mg PO DAILY Patient Comments: Takes HS benztropine 1 mg tablet 1 mg PO DAILY Patient Comments: Takes HS gabapentin 300 mg capsule 300 mg PO DAILY Patient Comments: Takes HS propranolol 20 mg tablet 20 mg PO DAILY Patient Comments: Takes HS losartan 100 mg tablet 100 mg PO DAILY Patient Comments: Takes HS metformin 500 mg tablet extended release 24 hr 1,000 mg PO BID aripiprazole 15 mg tablet 15 mg PO DAILY Patient Comments: Takes HS rosuvastatin 10 mg tablet 20 mg PO DAILY Patient Comments: Takes HS budesonide-formoterol [Symbicort] 160-4.5 mcg/actuation HFA aerosol inhaler 2 puff inhalation Q12H 30 Days Qty: 10.2 5RF Rx Instructions: Take TWO puffs twice a day, rinse and spit. albuterol sulfate [Ventolin HFA] 90 mcg/actuation HFA aerosol inhaler 2 inh inhalation Q4-6H PRN (Reason: shortness of breath) 90 Days Qty: 8.5 3RF levetiracetam [Keppra] 500 mg tablet 500 mg PO BID Jardiance 25 mg tablet 25 mg PO DAILY Patient Comments: Takes HS divalproex [Depakote] 250 mg tablet,delayed release (DR/EC) 250 mg PO Q8H fluoxetine 40 mg capsule 40 mg PO DAILY Patient Comments: Takes HS <Lisa Martino PA-C - Last Filed: 05/03/25 19:27> Follow-up/Referrals: UNKNOWN,DOCTOR [Non-Staff] <Lisa Martino PA-C - Last Filed: 05/03/25 19:27>
[2025-05-03] MEDS: HYDROcodone/acetaminophen (*CRX) 5-325 MG TABLET 1 TAB PO (18:31)
--- NOTE | 2025-05-03 18:37 | PC.NURSE ---
Called CT, aware of pts IV and green top.
[2025-05-03 21:49] VITALS: BP 115/72; PULSE 69; RESP 18; TEMP 36.9; O2SAT 97
[2025-05-03 21:55] VITALS: BP 115/72; PULSE 65; RESP 18; TEMP 36.9; O2SAT 97
[2025-05-03 23:39] VITALS: BP 138/90; PULSE 63; RESP 18; O2SAT 96
--- OUTSIDE RECORDS SUMMARY | 2025-05-04 01:21 | XMS_ITS | Clinical Summary ---
Author Organization [facility] Address [address] [address] Phone Care Team Providers Care Jazz Musician Name Role Phone Rony Mckenzie MD Primary Care Provider [phone] Jordon Echeverria MD Unavailable [phone] Allergies Active Allergy Reactions Criticality Noted Date [...] Department Care Team Description 03/20/2025 Results Follow-Up [facility] [address] [place] [address] Leanne Pimentel RN EEG AWAKE OR DROWSY ROUTINE 03/15/2025 10:30 AM CDT EEG [facility] [address] [place] [address] Jordon Echeverria MD Seizures (HCC) Discharge Disposition: Discharged to home or Selfcare 03/15/2025 Travel 03/11/2025 3:00 PM CDT Office Visit [facility] [address] [place] [address] Jordon Echeverria MD Seizures (HCC) (Primary Dx); Memory loss Discharge Disposition: Discharged to home or Selfcare 03/11/2025 Travel from Last 3 Months Family History Medical History Relation Name Comments Diabetes Mother Heart Attack Mother Stroke Mother Breast Cancer Sister Relation Name Status Comments Mother Sister Social History Tobacco Use Types Packs/Day Years Used Date Smoking Tobacco: Every Day Cigarettes 1 37.9 Started: 06/27/1987 Smokeless Tobacco: Never Tobacco Cessation:Ready [...] st Contact Info) Description 06/13/2025 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 [...] from Last 3 Months Insurance MEDICAID [facility] [facility] Care Teams Jazz Musician Relationship Specialty Start Date End Date Rony Mckenzie MD [address] [facility] [address] [place] [address] PCP - General Internal Medicine 12/10/22 Jordon Echeverria MD [address] [place] [address] Consulting Physician Neurology 03/11/25
--- OUTSIDE RECORDS SUMMARY | 2025-05-04 01:22 | XMS_ITS | Clinical Summary ---
Author Organization [facility] Address [address] [place] [address] Care Team Providers Care Timber Spotter Name Role Phone Rony Mckenzie MD Primary Care Provider [phone] Allergies Active Allergy Reactions Criticality Noted Date [...] DM eye exam: 02/2024 Dr Braden in [place]. Letter sent to get copy of report. [...] Department Care Team Description 05/01/2025 Orders Only [facility] Diabetes and Endocrinology [address] [place] [address] [phone] Leny Gonzalez NP 04/29/2025 Telephone [facility] Diabetes [facility] Endocrinology [address] [place] [address] [phone] Leny Gonzalez NP Med Refill 03/28/2025 Orders Only [facility] Diabetes [facility] Endocrinology [address] [place] [address] [phone] Jocelynn Thompson MD 03/22/2025 Orders Only [facility] Diabetes [facility] Endocrinology [address] [place] [phone] Jocelynn Thompson MD 03/22/2025 Results Follow-Up [facility] Diabetes [facility] Endocrinology [address] [place] [phone] Leny Gonzalez, LINDA Lipid panel, Basic metabolic panel, Albumin Creatinine Ratio, Urine, eGFR 03/20/2025 1:30 PM CDT Lab [address] [address] Type 2 diabetes mellitus with hyperglycemia, with long-term current use of insulin (HCC); Hyperlipidemia associated with type 2 diabetes mellitus (HCC); Hypertension associated with type 2 diabetes mellitus (HCC) 03/20/2025 12:30 PM CDT Office Visit [facility] [address] [place] [phone] Leny Gonzalez NP Type 2 diabetes mellitus [...] on file 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 Schleeper BEAN SNAPPER LAB URINE ORDERABLES Anyi l Result Performing Organization Address [facility] Co de Phone Number MYA [address] [address] * eGFR (03/20/2025 1:36 PM CDT) eGFR [...] CDT 03/20/2025 6:20 PM CDT Leny Gonzalez BEAN SNAPPER LAB BLOOD ORDERABLES Anyi l Result Performing Organization Address [facility] Co de Phone Number MYA [facility] [place] [address] * (ABNORMAL) Lipid panel (03/20/2025 1:36 PM [...] revised on 2024. Non-HDL Cholesterol 131 mg/dL [facility] Comment: Interpretive Data Ages < or = [...] last revised on 2018. Chol/HDL ratio 4 [facility] Blood 03/20/2025 1:36 PM CDT 03/20/2025 6:20 PM CDT us Leny Gonzalez BEAN SNAPPER LAB BLOOD ORDERABLES Anyi rhonda Result [facility] [address] [facility] [address] [facility] Department [place] [address] * Basic metabolic panel (03/20/2025 1:36 PM CDT) Pathologist [facility] Sodium 138 135 - 145 mmol/L Potassium, pl 4.2 3.3 - 4.9 mmol/L [facility] Chloride 101 97 - 110 mmol/L [facility] CO2 26 22 - 32 mmol/L [facility] Anion gap 11 2 - 15 mmol/L [facility] BUN 11 6 - 25 mg/dL [facility] Creatinine 0.82 0.80 - 1.30 mg/dL [facility] Glucose 177 70 - 199 mg/dL [facility] Comment: Interpretive Data Fasting glucose >/= 126 [...] LAB BLOOD ORDERABLES Anyi l Result MYA [address] [facility] [address] [facility] Department [place] [address] * (ABNORMAL) POCT hemoglobin A1c (03/20/2025 12:47 [...] Result from Last 3 Months Insurance [employer] [facility] [employer] [facility] Member Subscriber Plan / Payer (Ef fective 2024-Present) Name:Jared Meraz Relation to Subscriber:Self Name:Jared Meraz Payer ID:[id number] (NAIC) Group ID:Not on file Type:MEDICAID RISK OTHER Address: [facility] [id number] [place] [id number] Care Teams Timber Spotter Relationship Specialty Start Date End Date Rony Mckenzie MD [address] [place] [address] [place] [id number] PCP - General Internal Medicine 12/30/16
[2025-05-04 02:42] VITALS: BP 128/85; PULSE 63; RESP 18; O2SAT 96
[2025-05-09 08:45] LABS: Estimated CRCL calculation 81 ml/min; Estimated Glomerular Filt Rate > 60
== END 2025-05-04 02:44 | disposition home or self-care (01) ==
PROVIDERS: Emergency Provider Emergency Medicine; PCP Nurse Practitioner Family
DX: T21.02XA Burn of unspecified degree of abdominal wall, initial encounter (principal); T31.0 Burns involving less than 10% of body surface; G40.909 Epilepsy, unspecified, not intractable, without status epilepticus; J44.9 Chronic obstructive pulmonary disease, unspecified; E78.5 Hyperlipidemia, unspecified; E11.9 Type 2 diabetes mellitus without complications; F41.9 Anxiety disorder, unspecified; F31.9 Bipolar disorder, unspecified; F17.210 Nicotine dependence, cigarettes, uncomplicated; Z79.84 Long term (current) use of oral hypoglycemic drugs; Z79.899 Other long term (current) drug therapy; W06.XXXA Fall from bed, initial encounter
CPT/HCPCS: 36415; 71260; 74177; 82565; 99284; A9270; Q9967